=== PATIENT | female | born 1940 | race Caucasian/White ===

== ENCOUNTER → 2016-03-09 | Outpatient (CLI) | payer MEDICARE, BC ==
[2015-12-18 10:58] VITALS: BP 117/49
[~2016-03-09] MED LIST: ACET325T9 PO; AZEL137S3 NS; BACL10TA PO; CALC600T4 PO; CHOL20003 PO; CLOP75TA PO; CYCL10TA2 PO; FLEC100T PO; FLUT16SP2 NS; GLUC1CAP48 PO; HYDR-2666 PO; LACT1CAP8 PO; LEVO75TA PO; LIDO700A4 TP; LORA0.5T PO; LORA10TA3 PO; METO-269 PO; METO25TA9 PO; NAPR220C4 PO; OMEP10CA PO; POLY17PO5 PO; RANI150C PO; SENN8.6C2 PO; [UNRECOGNIZED DRUG - CODE] PO
--- NOTE | 2016-03-10 07:57 | PAIN ---
DATE OF SERVICE: 03/09/2016 DIAGNOSES: 1. Cervical radiculopathy with cervical spondylosis and cervical degenerative disk disease. 2. Lumbar radiculopathy with low back pain. 3. Myofascial pain. 4. Left trochanteric bursitis. HISTORY OF PRESENT ILLNESS: The patient is a 75-year-old female who returns for followup, last seen 01/05/2016. The patient has had some significant pain in the base of the neck and left shoulder. We sent her for some physical therapy with traction. She has done this now and reports about 90% improvement in this area, and her left shoulder and neck are doing much better, much easier ability to move her neck, shoulder, arm, and is very pleased with the progress. Her chief complaint today is her low back pain radiating to posterior left hip, posterior lateral thigh, lateral anterior thigh, medial lower leg and lateral lower leg on the left side only into the foot; also in the lateral aspect of the left foot. It is becoming more noticeable with walking and standing. The patient reports it is a 6 on a scale of 10. Reports no motor or sensory deficits, but significant pain in the low back and left lower extremity. The patient has been taking Plavix as well and we will check with her plane captain as to holding this in the future. The patient reports otherwise no new motor or sensory deficits, no new bowel or bladder incontinence or other complaints. PHYSICAL EXAMINATION: VITAL SIGNS: The patient's blood pressure is 129/70, pulse 63, respirations 18, temperature 98.3 degrees Fahrenheit, weight is 188 pounds. GENERAL: The patient is awake, alert, oriented, appropriate, very pleasant demeanor. The patient is accompanied by her . HEENT: Head shows normocephalic, atraumatic. Extraocular movements are intact and symmetrical. Oral cavity shows mucous membranes moist and pink. Dentition is intact. NECK: Shows anterior throat supple without palpable lymphadenopathy noted. Swallow reflex is symmetrical. CHEST: Shows normal on inspection. Breath sounds are clear to auscultation bilaterally. HEART: Shows S1 and S2 clear. ABDOMEN: Obese, soft, nontender, nondistended. No palpable organomegaly is noted. No rebound or guarding demonstrated. BACK: Shows spine grossly midline. There is some slight increase in thoracic kyphosis and some slight decrease in lumbar lordotic curvature. Lumbar paraspinous musculature shows some moderate tenderness with palpation, more on the left than the right in the low lumbar distribution of the paraspinous muscles, but only diffusely and only to a moderate extent. No atrophy or hypertrophy is noted. No trigger points. No radiation of pain demonstrated. No tenderness over the sacrum or sacroiliac regions. The patient shows good rotational motion of the lumbar spine, both laterally as well as extension and flexion, without significant difficulty or pain reported. EXTREMITIES: The patient's lower extremities show deep tendon reflexes 1+ in the patellar and tendo-calcaneus tendons. Motor exam is strong with dorsiflexion and extension. Quadriceps and hamstring flexion is approximately 4 on a scale of 5 on the left and 5/5 on the right. Peripheral pulses are 1+ posterior tibial and dorsalis pedis pulses. No peripheral edema is noted. No clubbing, no cyanosis. Lower extremities are warm and dry to touch, equal in color and appearance. The patient does have a slight positive straight-leg raise on the left side about 30 to 35 degrees, but also some hip pain involved, but no difference with knee flexion. Right side shows only some hip pain, but without radiation into the lower extremity as she had on the left, mostly in the lateral thigh. PLAN: Options were discussed with the patient. The patient's old chart was reviewed as well as her current medication regimen updated. Current review of systems was updated today as well. We will try Medrol Dosepak with instructions and side effects to be aware of discussed with the medication. Also, we will check with her plane captain to see if it is safe and acceptable to hold her Plavix prior to a potential interventional technique in the low back such as lumbar epidural steroid injection. We discussed this with the patient and her . With her radicular symptoms into the foot, this may be beneficial for the patient. We will check with plane captain regarding the Plavix as noted. The patient was given ____ the Medrol Dosepak. She will continue with strengthening and stretching exercises and physical therapy conditioning exercises for her upper neck and shoulders as she has been doing. The patient will return to the clinic in approximately 4 weeks or as necessary. JERRELL JAY MD DR: KRISTA/sunday JOB#: [id number] / [id number]
== END | disposition home or self-care (01) ==
LOC: PNCL 11:23
PROVIDERS: ATTEND Anesthesiology
DX: M50.10 Cervical disc disorder with radiculopathy, unspecified cervical region (principal); M47.892 Other spondylosis, cervical region; M54.16 Radiculopathy, lumbar region; M79.1 Myalgia; M70.62 Trochanteric bursitis, left hip
CPT/HCPCS: G0463

== ENCOUNTER → 2016-03-18 | Outpatient (CLI) | payer MEDICARE, BC ==
[2015-12-18 10:58] VITALS: BP 117/49
[~2016-03-18] MED LIST changes: +IOHEXOL 180 MG/ML 10 ML VIAL. ONE; +methylPREDNISolone ACETATE 40 MG/ML VIAL. ONE; +methylPREDNISolone ACETATE 80 MG/ML VIAL. ONE
--- NOTE | 2016-03-18 21:26 | PAIN ---
DATE OF SERVICE: 03/18/2016 DIAGNOSES: 1. Cervical radiculopathy with cervical degenerative disk disease and cervical spondylosis. 2. Lumbar radiculopathy with low back pain. 3. Left trochanteric bursitis. HISTORY OF PRESENT ILLNESS: The patient is a 75-year-old female who returns for followup status post both trigger point injections and cervical epidural steroid injections. We talked about lumbar epidural steroid injections. There is significant radiculopathy in the left leg at the L4-L5 level, dermatomal and has had significant burning and aching pain. She has been cleared now to be off her Plavix with her dairy helper, has been off it now for 7 days. Returns for injection today. The patient reports pain is a 7 on a scale of 10, it is burning, aching in the low back, left lower extremity, posterior gluteus, posterolateral thigh, lateral anterior thigh, medial lower leg into the foot and into the great toe on the left side. The patient reports no new motor or sensory deficits, no new bowel or bladder incontinence or other complaints. PHYSICAL EXAMINATION: VITAL SIGNS: Today, the patient's blood pressure is 119/59, pulse 65, respirations 18, temperature 98.1 degrees Fahrenheit. Height is 5 feet 4 inches, weighs 187 pounds. GENERAL: The patient is awake, alert, oriented, appropriate, very pleasant demeanor. HEENT: Head shows normocephalic, atraumatic. Extraocular movements are intact and symmetrical. Oral cavity shows mucous membranes moist and pink. Dentition is intact. NECK: Shows anterior throat supple without palpable lymphadenopathy noted. Swallow reflex is symmetrical. Neck shows good rotation and motion with some minor tenderness with extension, but not with forward flexion. CHEST: Shows normal on inspection with breath sounds clear to auscultation bilaterally. HEART: Shows S1 and S2 clear. ABDOMEN: Obese, soft, nontender, nondistended. No palpable organomegaly is noted. No rebound or guarding demonstrated. BACK: Shows spine grossly midline. The patient's lumbar paraspinous musculature shows some moderate tenderness with palpation throughout the middle and lower distribution of paraspinous muscles, but only diffusely without radiation. No asymmetry on inspection. No atrophy, hypertrophy. No tenderness over the sacrum and sacroiliac regions. The patient shows good rotation and motion of the lumbar spine, both laterally as well as extension and full forward flexion. EXTREMITIES: Lower extremities show deep tendon reflexes at 1+ in the patellar and tendo calcaneus tendons are equal. Motor exam is approximately 4 on a scale of 5 with dorsiflexion and extension as well as quadriceps and hamstring flexion, but are symmetrical. Peripheral pulses are 1+ posterior tibial and dorsalis pedis pulses. PLAN: Options were discussed with the patient. We will proceed with a lumbar epidural steroid injection today. The patient's old chart was reviewed as her current medication regimen and updated. Current review of systems updated today as well. Risks were discussed including but not limited to bleeding, infection, possibility of epidural hematoma and subsequent neurologic compromise, dural puncture, headaches, spinal cord and/or nerve damage, side effects of steroid medication and poor results regarding pain control. The patient understands and wishes to proceed. The patient will return to clinic in approximately 2 weeks for followup, was counseled on return appointment, activity level and side effects to be aware of. DIAGNOSIS: Lumbar radiculopathy with lumbar degenerative disk disease and low back pain. PROCEDURE: Lumbar epidural steroid injection, translaminar approach at the L4-L5 level using C-arm fluoroscopic guidance under sterile prep and drape using local anesthetic. MEDICATIONS INJECTED: Depo-Medrol 120 mg plus 2 mL of preservative-free normal saline and 2 mL of Isovue contrast. CONDITION AT DISCHARGE: Stable. The patient tolerated the procedure well, had no complications. The patient will start her Plavix again tomorrow, was counseled as to activity levels as well as side effects to be aware of. JERRELL JAY MD DR: KRISTA/sunday JOB#: [id number] / [id number]
== END ==
LOC: PNCL 09:48
PROVIDERS: ATTEND Anesthesiology
DX: M51.16 Intervertebral disc disorders with radiculopathy, lumbar region (principal); M50.10 Cervical disc disorder with radiculopathy, unspecified cervical region; M47.22 Other spondylosis with radiculopathy, cervical region; M70.62 Trochanteric bursitis, left hip; E03.9 Hypothyroidism, unspecified; F41.9 Anxiety disorder, unspecified; K21.9 Gastro-esophageal reflux disease without esophagitis
CPT/HCPCS: 62323; J1030; J1040

== ENCOUNTER 2016-06-04 14:35 | Observation (INO) | payer MEDICARE, BC ==
[~2016-06-04] VITALS: Ht 162.6 cm; Wt 86.6 kg
[~2016-06-04 14:35] MED LIST changes: -IOHEXOL 180 MG/ML 10 ML VIAL. ONE; -methylPREDNISolone ACETATE 40 MG/ML VIAL. ONE; -methylPREDNISolone ACETATE 80 MG/ML VIAL. ONE
--- NOTE | 2016-06-04 15:22 | ED.ADGEN ---
Past Medical History Past Medical History: A-Fib, Cancer, Hypothyroid Additional Past Medical Histor: breast cancer '09,lymphadema,sinus infection Past Surgical History: Cancer Surgery, Tonsillectomy Additional Past Surgical Histo: left mastectomy, Alcohol Use: None Drug Use: None Adult General Chief Complaint Chief Complaint: ABDOMINAL PAIN HPI HPI Patient is a 75 year old woman, history of hypothyroidism, breast cancer status post resection, 2008 in remission, constipation, who presents emergency Department with complaint of abdominal pain and constipation for the past 2 weeks. Patient states she seemed her primary care provider on Tuesday, at that time and x-rays performed that showed constipation, the patient was started on MiraLAX. She's taken 3 days of MiraLAX she states that she has passed "brown liquid", since that time, 2 episodes. States she is experiencing 7/10 cramping abdominal pain, in the upper quadrants and periumbilical region greater than in the lower quadrants, denies any nausea or vomiting, states that she cannot eat due to the pain. States she was able to have some chicken soup earlier today. Denies any fevers or chills, injuries, any weakness numbness or tingling, denies taking any medications that may contribute her constipation. No urinary complaints. No swelling of the extremities extremities, no chest pain or shortness of breath. She states she has been compliant with all of her medications. Her primary care provider is Dr. Jeison Veras. She is not previously had a colonoscopy. Review of Systems Review of Systems Constitutional: Denies fever or chills. [] Eyes: Denies change in visual acuity. [] HENT: Denies nasal congestion or sore throat. [] Respiratory: Denies cough or shortness of breath. [] Cardiovascular: Denies chest pain or edema. [] GI: Crampy abdominal pain, constipation, no nausea, no vomiting, no diarrhea. : Denies dysuria. [] Musculoskeletal: Denies back pain or joint pain. [] Integument: Denies rash. [] Neurologic: Denies headache, focal weakness or sensory changes. [] Endocrine: Denies polyuria or polydipsia. [] Lymphatic: Denies swollen glands. [] Psychiatric: Denies depression or anxiety. [] Current Medications Current Medications Current Medications Medications (Trade) Dose Ordered Sig/Brock Start Time Stop Time Status Last Admin Dose Admin Fentanyl Citrate (Fentanyl 2ml Vial) 25 mcg PRN Q15MIN PRN 06/04/16 15:30 06/05/16 15:29 Ondansetron HCl 4 mg 4 mg 1X ONCE 06/04/16 15:30 06/04/16 15:31 DC 06/04/16 16:04 4 MG Sodium Chloride (Iv Sodium Chloride 0.9% 500ml Bag) 500 ml @ 500 mls/hr 1X ONCE 06/04/16 15:30 06/04/16 16:29 DC 06/04/16 16:04 500 MLS/HR Allergies Allergies Allergies Coded Allergies Type Severity Reaction Last Updated Verified azithromycin Allergy Severe Anaphylaxis 01/10/15 No diphenhydramine Allergy Severe Anaphylaxis 01/10/15 Yes erythromycin base Allergy Severe Anaphylaxis 09/04/13 Yes iodine Allergy Severe 10/15/13 Yes sodium phosphate Allergy Severe Anaphylaxis 01/10/15 Yes vancomycin Allergy Severe Anaphylaxis 09/04/13 Yes Penicillins Allergy Intermediate Swelling 01/10/15 Yes Sulfa (Sulfonamide Antibiotics) Allergy Intermediate oral sores 10/15/13 No alendronate sodium Allergy Intermediate vision changes 01/10/15 Yes anastrozole Allergy Intermediate Unknown 01/10/15 Yes cefdinir Allergy Intermediate Diarrhea 01/10/15 Yes clarithromycin Allergy Intermediate Unknown 01/10/15 Yes doxepin Allergy Intermediate dizzyness 01/10/15 Yes ibuprofen Allergy Intermediate sores 01/10/15 Yes levofloxacin Allergy Intermediate Unknown 01/10/15 Yes moxifloxacin Allergy Intermediate Unknown 01/10/15 Yes naproxen Allergy Intermediate sores 12/18/15 Yes strawberry Allergy Intermediate Unknown 01/10/15 Yes tizanidine Allergy Intermediate heart palpitaions 01/10/15 Yes tramadol Allergy Intermediate oral rash 10/15/13 No venom-wasp Allergy Intermediate Unknown 01/10/15 Yes amoxicillin Allergy Mild sores 01/10/15 Yes cyclobenzaprine Adverse Reaction Severe felt bed moving, felt like someone was in bed 03/12/14 No morphine Adverse Reaction Intermediate vomiting 03/12/14 No aspirin Adverse Reaction Mild hurts stomach 03/12/14 No Physical Exam Physical Exam Constitutional: Well developed, well nourished, no acute distress, non-toxic appearance. [] HENT: Normocephalic, atraumatic, bilateral external ears normal, oropharynx moist, no oral exudates, nose normal. [] Eyes: PERRLA, EOMI, conjunctiva normal, no discharge. [] Neck: Normal range of motion, no tenderness, supple, no stridor. [] Cardiovascular:Heart rate regular rhythm, no murmur , S1, S2, no rubs or gallops. [] Lungs & Thorax: Bilateral breath sounds clear to auscultation, no wheezing, rhonchi, rales. No chest or crepitus or tenderness. [] Abdomen: Hypoactive bowel sounds, soft, obese, mildly distended, tenderness to palpation throughout the abdomen, most specific in the periumbilical region and epigastric region, no masses, no pulsatile masses. [] Skin: Warm, dry, no erythema, no rash. [] Back: No tenderness, no CVA tenderness. [] Extremities: No tenderness, no cyanosis, no clubbing, ROM intact, no edema. [] Neurologic: Alert and oriented X 3, normal motor function, normal sensory function, no focal deficits noted. [] Psychologic: Affect normal, judgement normal, mood normal. [] Current Patient Data Vital Signs Vital Signs Date Time Temp Pulse Resp B/P Pulse Ox O2 Delivery O2 Flow Rate FiO2 06/04/16 17:45 72 18 140/65 95 Room Air 06/04/16 15:33 98.1 98.1 Lab Values Laboratory Tests Test 06/04/16 15:38 06/04/16 15:40 06/04/16 16:15 Urine Collection Type Unknown Urine Color Straw Urine Clarity Clear Urine pH 7.0 Urine Specific Mccoll <=1.005 Urine Protein Negativemg/dL (NEG-TRACE) Urine Glucose (UA) Negativemg/dL (NEG) Urine Ketones (Stick) Negativemg/dL (NEG) Urine Blood Negative (NEG) Urine Nitrite Negative (NEG) Urine Bilirubin Negative (NEG) Urine Urobilinogen Dipstick 0.2mg/dL (0.2 mg/dL) Urine Leukocyte Esterase Negative (NEG) Urine RBC 0/HPF (0-2) Urine WBC 0/HPF (0-4) Urine Squamous Epithelial Cells Occ/LPF Urine Bacteria 0/HPF (0-FEW) White Blood Count 5.2x10^3/uL (4.0-11.0) Red Blood Count 4.31x10^6/uL (3.50-5.40) Hemoglobin 13.0g/dL (12.0-15.5) Hematocrit 39.1% (36.0-47.0) Mean Corpuscular Volume 91fL (79-100) Mean Corpuscular Hemoglobin 30pg (25-35) Mean Corpuscular Hemoglobin Concent 33g/dL (31-37) Red Cell Distribution Width 14.4% (11.5-14.5) Platelet Count 188x10^3/uL (140-400) Neutrophils (%) (Auto) 61% (31-73) Lymphocytes (%) (Auto) 27% (24-48) Monocytes (%) (Auto) 9% (0-9) Eosinophils (%) (Auto) 2% (0-3) Basophils (%) (Auto) 1% (0-3) Neutrophils # (Auto) 3.1x10^3uL (1.8-7.7) Lymphocytes # (Auto) 1.4x10^3/uL (1.0-4.8) Monocytes # (Auto) 0.5x10^3/uL (0.0-1.1) Eosinophils # (Auto) 0.1x10^3/uL (0.0-0.7) Basophils # (Auto) 0.1x10^3/uL (0.0-0.2) Sodium Level 141mmol/L (136-145) Potassium Level 3.7mmol/L (3.5-5.1) Chloride Level 101mmol/L (98-107) Carbon Dioxide Level 27mmol/L (21-32) Anion Gap 13 (6-14) Blood Urea Nitrogen 8mg/dL (7-20) Creatinine 0.9mg/dL (0.6-1.0) Estimated GFR (Cockcroft-Gault) 60.9 BUN/Creatinine Ratio 9 (6-20) Glucose Level 102mg/dL (70-99) H Lactic Acid Level 1.6mmol/L (0.4-2.0) Calcium Level 9.4mg/dL (8.5-10.1) Total Bilirubin 0.7mg/dL (0.2-1.0) Aspartate Amino Transferase (AST) 18U/L (15-37) Alanine Aminotransferase (ALT) 25U/L (14-59) Alkaline Phosphatase 85U/L (46-116) Total Protein 7.6g/dL (6.4-8.2) Albumin 4.1g/dL (3.4-5.0) Albumin/Globulin Ratio 1.2 (1.0-1.7) Lipase 116U/L (73-393) Thyroid Stimulating Hormone (TSH) 3.897uIU/mL (0.358-3.74) H Laboratory Tests 06/04/16 15:40 Laboratory Tests 06/04/16 16:15 EKG EKG EC: Sinus rhythm, heart rate 69 bpm, left axis deviation, QTC of 449, GA of 240, QRS of 86, no ST elevations or depressions, GA slightly prolonged, aside from these findings with her concerning findings identified. Abdomen normal ECG, does not meet STEMI criteria. As interpreted by me. [] Radiology/Procedures Radiology/Procedures [] [facility] [address] [place] [address] IMAGING REPORT Signed PATIENT: ULI MILLER ACCOUNT: [id number] : 1940 LOCATION: ER AGE: 75 SEX: F EXAM STATUS: REG ER ORD. PHYSICIAN: SHYLA PARIKH DO REASON: abd pain/constipation, PT ALLERGY TO IODINE PROCEDURE: CT ABD PEL W/ORAL CONTRST ONLY PROCEDURE CT abdomen pelvis without contrast. HISTORY Generalized abdominal pain, nausea and vomiting. TECHNIQUE Helical CT imaging of the abdomen and pelvis is performed after oral contrast. IV contrast not given due to reported iodine allergy. PQRS: One or more the following individualized dose reduction techniques were utilized for the study: 1. Automated exposure control. 2. Adjustment of the mA and/or kV according to patient size. 3. Use of iterative reconstruction technique. COMPARISON CT abdomen and pelvis without contrast November 18, 2013. FINDINGS Lung bases clear. Cardiac size normal. Gallbladder is contracted. Liver, spleen, pancreas, adrenal glands, and abdominal aorta are normal. No hydronephrosis. Stomach unremarkable. No dilated small bowel. The appendix is normal. No colon wall thickening. No abdominal adenopathy or free fluid. Uterus and ovaries unremarkable. Urinary bladder is normal. No pelvic free fluid. Moderate left convexity thoracolumbar scoliosis. Grade 1 anterolisthesis of L4 on L5. IMPRESSION No acute abdominal or pelvic abnormality. Electronically signed by: Alfredo Claudio MD (Jun 04, 2016 17:24:31) DICTATED and SIGNED BY: ALFREDO CLAUDIO MD DATE: 06/04/16 1724 CC: SHYLA PARIKH DO; JEISON VERAS Jr, MD ~ Course & Med Decision Making Course & Med Decision Making Pertinent Labs and Imaging studies reviewed. (See chart for details) Patient patient's history and reports, CT of abdomen and pelvis along with laboratory studies obtained. Patient's laboratory studies do not any evidence of acutely concerning findings. Patient's CT of the pelvis does not reveal any obstruction or obstipation, some continued constipation noted. I did discuss findings with patient, she states she is continuing to experience cramping and pressure and abdomen, and is still feeling ill, and as though she is unable to eat due to her discomfort,. After a lengthy discussion at bedside, patient is agreeable for admission to the hospital for observation, will continue MiraLAX at this time, she did miss her dose today, IV fluids, and advance diet as tolerated. Findings as above discussed with Dr. Moody of internal medicine, patient accepted to her service as an observation admission medical surgical bed , for IV fluids, 2 advance diet as tolerated, and observation. Bridge orders entered per discussion. Fiona Disclaimer Fiona Disclaimer This electronic medical record was generated, in whole or in part, using a voice recognition dictation system. Departure Impression: Primary Impression: Abdominal pain Additional Impression: Constipation Disposition: ADMITTED INPATIENT Admitting Physician: Other Condition: IMPROVED Problem Qualifiers SHYLA PARIKH DO Jun 04, 2016 15:22
[2016-06-04] MEDS ORDERED: FENTANYL PF 100 MCG/2 ML VIAL. IV PRN (15:30)
[2016-06-04] MEDS ORDERED: IV NORMAL SALINE 500ML BAG 500 ML IV ONE (15:30)
[2016-06-04] MEDS ORDERED: ONDANSETRON PF 4 MG/2 ML VIAL. IV ONE (15:30)
[2016-06-04 15:49] LABS: BASO # 0.1 x10^3/uL (0.0-0.2); BASO % 1 % (0-3); EOS % 2 % (0-3); HEMATOCRIT 39.1 % (36.0-47.0); LYMPH # 1.4 x10^3/uL (1.0-4.8); LYMPH % 27 % (24-48); MEAN CORPUSCULAR HEMOGLOBIN 30 pg (25-35); MEAN CORPUSCULAR HGB CONC 33 g/dL (31-37); MEAN CORPUSCULAR VOLUME 91 fL (79-100); MONO % 9 % (0-9); NEUT % 61 % (31-73); PLATELET COUNT 188 x10^3/uL (140-400); RED BLOOD COUNT 4.31 x10^6/uL (3.50-5.40); RED CELL DISTRIBUTION WIDTH 14.4 % (11.5-14.5); WHITE BLOOD COUNT 5.2 x10^3/uL (4.0-11.0)
[2016-06-04 15:53] LABS: BILIRUBIN,URINE NEGATIVE (NEG); GLUCOSE,URINE NEGATIVE (NEG); NITRITE,URINE NEGATIVE (NEG); PROTEIN,URINE NEGATIVE (NEG-TRACE); UROBILINOGEN,URINE 0.2 mg/dL (0.2 mg/dL)
[2016-06-04 16:03] LABS: RBC,URINE 0 /HPF (0-2)
[2016-06-04 16:04] LABS: BACTERIA,URINE 0 /HPF (0-FEW); SQUAMOUS EPITHELIAL CELL,UR OCC /LPF; WBC,URINE 0 /HPF (0-4)
[2016-06-04 16:44] LABS: CALCIUM 9.4 mg/dL (8.5-10.1); CREATININE 0.9 mg/dL (0.6-1.0); GFR 60.9; POTASSIUM 3.7 mmol/L (3.5-5.1)
[2016-06-04 16:50] LABS: ALBUMIN 4.1 g/dL (3.4-5.0); ALBUMIN/GLOBULIN RATIO 1.2 (1.0-1.7); TOTAL BILIRUBIN 0.7 mg/dL (0.2-1.0); TOTAL PROTEIN 7.6 g/dL (6.4-8.2)
--- NOTE | 2016-06-04 17:04 | EKG ---
[facility] [address] [place] [address] Test Date: 2016-06-04 Test Time: 15:55:12 Pat Name: ULI MILLER Department: Room: Gender: F Customer Sales Advisor: : 1940 Requested By: SHYLA PARIKH Order Number: [id number] Reading MD: Measurements Intervals [place] Rate: 69 P: 56 [place]: 248 QRS: -16 QRSD: 86 T: 22 QT: 418 QTc: 449 Interpretive Statements SINUS RHYTHM PROLONGED [place] INTERVAL LEFTWARD AXIS NON SPECIFIC T ABNORMALITY RI6.01 Unconfirmed report No previous ECG available for comparison
--- NOTE | 2016-06-04 17:25 | RAD ---
PROCEDURE CT abdomen pelvis without contrast. HISTORY Generalized abdominal pain, nausea and vomiting. TECHNIQUE Helical CT imaging of the abdomen and pelvis is performed after oral contrast. IV contrast not given due to reported iodine allergy. PQRS: One or more the following individualized dose reduction techniques were utilized for the study: 1. Automated exposure control. 2. Adjustment of the mA and/or kV according to patient size. 3. Use of iterative reconstruction technique. COMPARISON CT abdomen and pelvis without contrast November 18, 2013. FINDINGS Lung bases clear. Cardiac size normal. Gallbladder is contracted. Liver, spleen, pancreas, adrenal glands, and abdominal aorta are normal. No hydronephrosis. Stomach unremarkable. No dilated small bowel. The appendix is normal. No colon wall thickening. No abdominal adenopathy or free fluid. Uterus and ovaries unremarkable. Urinary bladder is normal. No pelvic free fluid. Moderate left convexity thoracolumbar scoliosis. Grade 1 anterolisthesis of L4 on L5. IMPRESSION No acute abdominal or pelvic abnormality. Electronically signed by: Alfredo Claudio MD (Jun 04, 2016 17:24:31)
[2016-06-04] MEDS ORDERED: ACETAMINOPHEN 325 MG TABLET. PO PRN ×2 (18:00→20:15)
[2016-06-04] MEDS ORDERED: DICYCLOMINE HCL 10 MG CAPSULE PO ONE (18:00)
[2016-06-04] MEDS ORDERED: ONDANSETRON PF 4 MG/2 ML VIAL. IV PRN (18:00)
[2016-06-04] MEDS ORDERED: POLYETHYLENE GLYCOL 3350 17 GM PACKET. PO ONE (18:15)
[2016-06-04] MEDS ORDERED: IV NORMAL SALINE 1000ML BAG 1,000 ML IV ONE (18:15)
[2016-06-04] MEDS: IV NORMAL SALINE 1000ML BAG 1,000 ML IV SCH (18:30)
[2016-06-04] MEDS ORDERED: SIMETHICONE 80 MG TAB.CHEW PO PRN (20:15)
[2016-06-04 20:17] VITALS: BP 142/75
[2016-06-04] MEDS ORDERED: CETIRIZINE HCL 10 MG TABLET. PO SCH (20:30)
[2016-06-04] MEDS ORDERED: FAMOTIDINE 20 MG TABLET. PO PRN (21:00)
[2016-06-04] MEDS ORDERED: LORAZEPAM 0.5 MG TABLET. PO SCH (21:00)
[2016-06-04] MEDS ORDERED: FLEC50TA PO (21:59)
[2016-06-04] MEDS ORDERED: LORA1TAB PO (21:59)
[2016-06-04] MEDS ORDERED: METO25TA9 PO (21:59)
[2016-06-04] MEDS: METOCLOPRAMIDE 10 MG TABLET. PO SCH (21:59)
[2016-06-04] MEDS: POLYETHYLENE GLYCOL 3350 17 GM PACKET. PO SCH (22:01)
[2016-06-04 22:30] VITALS: BP 130/66
--- NOTE | 2016-06-05 00:12 | HP ---
ADMIT DATE: 06/04/2016 CHIEF COMPLAINT: Constipation/diarrhea. HISTORY OF PRESENT ILLNESS: The patient is a 75-year-old woman who presented to the Emergency Room after having constipation for several days now. She relates that this has been an issue ongoing for many, many weeks, but appears here more recently. Symptoms have gotten worse. She relates that she actually went to her primary care physician on Tuesday and was advised to start MiraLax x 4 with plenty of Gatorade. She tried this on Tuesday as well as on , both times with very little results, fluid only. She therefore was advised to come to the Emergency Room for further workup and evaluation. In the Emergency Room, she underwent a CAT scan, which did not show any type of obstruction or ileus. The patient was therefore admitted for observation and further monitoring. PAST MEDICAL HISTORY: Atrial fibrillation on flecainide, no oral anticoagulation. Denies any heart history, positive for hypertension, obstructive sleep apnea on CPAP. FAMILY HISTORY: Positive for CAD. SOCIAL HISTORY: She is , living with her who smoked only briefly in her youth. ALLERGIES: Multiple as listed. MEDICATIONS: MAR reconciled with home medications. REVIEW OF SYSTEMS: Significant abdominal pain and distension. She has been decreasing her p.o. intake and has been living on chicken soup for quite a while. Denies any chest pain, shortness of breath, had some watery diarrhea since receiving MiraLax in the Emergency Room a couple of hours earlier. Rest of organ system review was essentially negative. PHYSICAL EXAMINATION: VITAL SIGNS: From today show a blood pressure of 113/63, heart rate of 100, respiratory rate at 20. She is afebrile, of note, pulse rate previously had been in the 70s. GENERAL: This is an obese 75-year-old woman, alert and oriented, no acute distress, pleasant. HEENT: Shows no scleral icterus. NECK: Supple. LUNGS: Clear to auscultation bilaterally. HEART: Slightly irregular rate and rhythm. ABDOMEN: Massively distended, firm, tenderness to palpation in the upper quadrants. No masses are palpable. EXTREMITIES: Show no edema, no clubbing, no cyanosis. SKIN: Warm, soft and dry without any rash. LABORATORY DATA: CBC with a WBC of 5.2, hemoglobin 13.0, platelets of 188. Chemistries with a BUN and creatinine of 8 and 0.9. Electrolytes within normal limits. LFTs normal. Albumin 4.1. Urine negative for any infectious symptoms. IMAGING: CT of the abdomen and pelvis reviewed by myself revealed no abnormal gas patterns in the bowel. Stomach, however, contains copious amounts of oral contrast and is significantly dilated. ASSESSMENT AND PLAN: There is a 75-year-old woman presenting with abdominal pain and distention unlike initially presumed, this was not due to constipation or obstruction of her lower GI tract, but more related to her stomach. We will start her on Reglan for now. Simethicone will be available p.r.n. Start clear liquids if she tolerates this, advanced to cardiac diet. A GI consult may be required if symptoms do not antolin. She more than likely will need either in or outpatient workup for this. I will continue all her home medications for the time being. Heart rate in itself is actually fairly well controlled. We will monitor her electrolytes with ongoing loose bowel movements and potential electrolyte losses, the only medication not available here is flecainide. Her will have to bring in her supply. TAMIA OLIVARES MD DR: SELENA/sunday JOB#: [id number] / [id number] [place]
[2016-06-05] MEDS ORDERED: LORAZEPAM 0.5 MG TABLET. PO ONE (00:30)
[2016-06-05 02:30] VITALS: BP 104/61
[2016-06-05] MEDS: IV NORMAL SALINE 1000ML BAG 1,000 ML IV SCH (05:30)
[2016-06-05 05:33] LABS: BASO % 1 % (0-3); EOS % 3 % (0-3); HEMATOCRIT 33.9 % (36.0-47.0); HEMOGLOBIN 11.5 g/dL (12.0-15.5); LYMPH # 1.5 x10^3/uL (1.0-4.8); LYMPH % 28 % (24-48); MEAN CORPUSCULAR HEMOGLOBIN 31 pg (25-35); MEAN CORPUSCULAR HGB CONC 34 g/dL (31-37); MEAN CORPUSCULAR VOLUME 92 fL (79-100); MONO % 12 % (0-9); NEUT % 57 % (31-73); PLATELET COUNT 149 x10^3/uL (140-400); RED BLOOD COUNT 3.67 x10^6/uL (3.50-5.40); WHITE BLOOD COUNT 5.3 x10^3/uL (4.0-11.0)
[2016-06-05 05:48] LABS: CALCIUM 7.7 mg/dL (8.5-10.1); CREATININE 0.7 mg/dL (0.6-1.0); GFR 81.4; POTASSIUM 3.5 mmol/L (3.5-5.1)
[2016-06-05 07:00] VITALS: BP 100/50
[2016-06-05] MEDS ORDERED: LEVOTHYROXINE 75 MCG TABLET PO SCH (07:30)
[2016-06-05] MEDS: POLYETHYLENE GLYCOL 3350 17 GM PACKET. PO SCH (08:19)
[2016-06-05] MEDS: METOCLOPRAMIDE 10 MG TABLET. PO SCH ×2 (08:24→12:01)
[2016-06-05] MEDS: LACTOBACILLUS ACIDOPH & BULGAR 1 TABLET. PO SCH ×2 (08:25→12:01)
[2016-06-05] MEDS ORDERED: METOPROLOL SUCC 24HR ER 25 MG TAB.ER.24H. PO SCH (09:00)
[2016-06-05] MEDS ORDERED: FLUTICASONE 50MCG/NASAL SPRAY 16GM BOTTLE. NS SCH (09:00)
[2016-06-05] MEDS ORDERED: LORAZEPAM 0.5 MG TABLET. PO PRN (09:00)
[2016-06-05] MEDS ORDERED: CLOPIDOGREL BISULFATE 75 MG TABLET PO SCH ×2 (09:00→17:00)
[2016-06-05] MEDS ORDERED: METOPROLOL SUCC 24HR ER 50 MG TAB.ER.24H. PO SCH (09:00)
[2016-06-05] MEDS ORDERED: CHOLECALCIFEROL (VITAMIN D3) 1,000 UNIT TABLET PO SCH (09:00)
[2016-06-05] MEDS ORDERED: AZELASTINE NASAL SPRAY 30ML BOTTLE. NS SCH (09:00)
--- NOTE | 2016-06-05 11:05 | ACF ---
Admit Criteria Forms Admit Criteria Forms Admit Criteria Forms ABDOMINAL PAIN Clinical Indications for Admission to Inpatient Care (Place 'X' for any and all applicable criteria): Admission is indicated for ANY ONE of the following(1)(2)(3)(4)(5): [X]I. Inpatient admission required rather than observation care (Also use Abdominal Pain: Observation Care, as appropriate) because of ANY ONE of the following: [ ]a) Severe pain requiring acute inpatient management [X]b) Identification of etiology/finding that requires inpatient care (eg, aortic dissection, free air) [ ]c) Absent bowel sounds with complete ileus(6) [ ]d) Suspected toxic megacolon [ ]e) Severe electrolyte abnormalities requiring inpatient care [ ]f) High fever or infection requiring inpatient admission as indicated by ANY ONE of following(7)(8): [ ] i) Appropriate outpatient or observational care antimicrobial treatment unavailable, not effective, or not feasible [ ] ii) Documented bacteremia [ ] iii) Temperature > 104.9 degrees F (oral) [ ] iv) T >103.1 F (oral) or < 96.8 F(rectal) that does not respond to all emergency treatment measures [ ]g) Signs of intestinal obstruction [B] [ ]h) Hemodynamic instability [ ]i) IV fluid to replace significant ongoing losses (greater than 3 L/m2 per day) (12)(13) [ ]j) Percutaneous or open drainage (eg, abscess, biliary tract ) procedures [ ]k) Parenteral nutrition regimen that must be implemented on inpatient basis [ ]l) Other condition,treatment or monitoring requiring inpatient admission. [ ]II. Peritoneal signs present [ ]III. Surgery needed that cannot be performed on an ambulatory basis. [ ]IV. Evaluation requires patient to not eat or drink for extended period ( eg, more than 24 hours). [ ]V. Contraindications and/or Inappropriate clinical situations for Observational Care in patients with abdominal pain, when ANY ONE of the following is required: [ ]a) Thorough evaluation is required to prevent catastrophic events due to delays in diagnosing (e.g.Mesenteric ischemia) 1,3 [ ]b) Patient with severe pathology or with chronic symptoms unlikely to improve in the ED stay (3) [ ]. General contraindications and/or Inappropriate clinical situations for Observational Care in patients with abdominal pain, when ANY ONE of the following is required: [ ]a) Prediction of prolongation of LOS based on ANY ONE of the following may be considered as a contraindication for observational care 2, 3, 4, 5, 6, 7, 8, 9, 10, 11 [ ]i) Age > 65 yrs. [ ]ii) Patient arriving by ambulance [ ]iii) Patient with high acuity [ ]iv) Patient requiring vital sign monitoring [ ]v) Patient on IV medication [ ]b) Systolic blood pressures 180mmHg 3,12 [ ]c) Patient with altered mental status including delirium and other alteration of consciousness, (3) [ ]d) Patient whose discharge disposition will be to a residential home or rehabilitation home should not be managed in Emergency Department Observation Unit. CMS rule requires 3 days hospital stay before such placement.3,13 [ ]e) Patient with failure to thrive due to broad array of etiologies 3,16,17 [ ]f) Inability to ambulate 3,14 Extended stay beyond goal length of stay may be needed for(2)(3): [ ]a) Persistent abdominal pain with suspected intra-abdominal process [ ]b) Diagnosed condition requiring continued stay (e.g., pancreatitis, complicated diverticulitis) [ ]c) Surgery (e.g., colectomy) The original [employer] content created by [employer] has been revised. The portions of the content which have been revised are identified through the use of italic text or in bold, and [employer] has neither reviewed nor approved the modified material.All other unmodified content is copyright [employer]. Please see references footnoted in the original [employer] edition 2016ABDOMINAL AORTIC ANEURYSM, ENDOVASCULAR REPAIR Clinical Indications for Procedure (Place 'X ' for any and all applicable criteria): Procedure is indicated if ALL (I,II &III) of the following are present(1)(2)(3)( 4)(5): [ ]I. Repair is needed as indicated by ANY ONE of the following(6) : [ ]a) Symptomatic aneurysm (eg, cause of back or abdominal pain, distal embolization) [ ]b) Ruptured, dissecting, or leaking aneurysm(11)(13) [ ]c) Infrarenal or juxtarenal aneurysm 5.0 cm in diameter or larger[A] [ ]d) Suprarenal aneurysm 5.5 cm in diameter or larger [ ]e) Infected (mycotic) aneurysm(15) [ ]f) Aneurysm that expands by more than 1.0 cm in diameter within 12 months (or by more than 0.5 cm over 6 months) [ ]II. Anatomy and location of abdominal aorta, aneurysm, and distal vessels are suitable for endovascular repair.(16)(17) [ ]III. Patient able to comply with indicated periodic long-term surveillance imaging Extended stay beyond goal length of stay may be needed for (24)(25): [ ]a) Complications of procedure (8)(40 [ ]b) Unstable comorbidities (24) [ ]c) Emergent repair (9) The original [employer] content created by [employer] has been revised. The portions of the content which have been revised are identified through the use of italic text or in bold, and [facility] has neither reviewed nor approved the modified material. All other unmodified content is copyright [employer]. Please see references footnoted in the original [employer] edition 2016 HIEN MONTGOMERY Jun 05, 2016 11:05
[2016-06-05 11:13] VITALS: BP 119/57
--- NOTE | 2016-06-05 13:21 | PDOC ---
PROGRESS NOTES Chief Complaint Chief Complaint cc: abdominal pain constipation Atrial fibrillation on flecainide, no oral anticoagulation. hypertension, obstructive sleep apnea on CPAP. History of Present Illness History of Present Illness Patient seen and evaluated at bedside. Patient resting comfortably, in no acute distress. She notes continued pain to the epigastrum, but improved. She is tolerating PO. She is eager for discharge. d/w nurse. Vitals Vitals Vital Signs Date Time Temp Pulse Resp B/P Pulse Ox O2 Delivery O2 Flow Rate FiO2 06/05/16 11:13 98.1 75 18 119/57 95 Room Air 98.1 Physical Exam General: Alert, Oriented X3, Cooperative, No acute distress Heart: Normal S1, Other (irregular rhythm ) Lungs: Clear, Other (negative chest rectractions or accessory muscle use. ) Abdomen: Soft, Other ((+) minimal tenderness to palpation to epigrastrum with mild distention. Negative peritoneal signs. ) Extremities: No clubbing, No cyanosis, No edema Skin: No rashes, No significant lesion Labs LABS Laboratory Tests Test 06/04/16 15:38 06/04/16 15:40 06/04/16 16:15 06/04/16 18:09 Urine Collection Type Unknown Urine Color Straw Urine Clarity Clear Urine pH 7.0 Urine Specific [place] <=1.005 Urine Protein Negativemg/dL (NEG-TRACE) Urine Glucose (UA) Negativemg/dL (NEG) Urine Ketones (Stick) Negativemg/dL (NEG) Urine Blood Negative (NEG) Urine Nitrite Negative (NEG) Urine Bilirubin Negative (NEG) Urine Urobilinogen Dipstick 0.2mg/dL (0.2 mg/dL) Urine Leukocyte Esterase Negative (NEG) Urine RBC 0/HPF (0-2) Urine WBC 0/HPF (0-4) Urine Squamous Epithelial Cells Occ/LPF Urine Bacteria 0/HPF (0-FEW) White Blood Count 5.2x10^3/uL (4.0-11.0) Red Blood Count 4.31x10^6/uL (3.50-5.40) Hemoglobin 13.0g/dL (12.0-15.5) Hematocrit 39.1% (36.0-47.0) Mean Corpuscular Volume 91fL (79-100) Mean Corpuscular Hemoglobin 30pg (25-35) Mean Corpuscular Hemoglobin Concent 33g/dL (31-37) Red Cell Distribution Width 14.4% (11.5-14.5) Platelet Count 188x10^3/uL (140-400) Neutrophils (%) (Auto) 61% (31-73) Lymphocytes (%) (Auto) 27% (24-48) Monocytes (%) (Auto) 9% (0-9) Eosinophils (%) (Auto) 2% (0-3) Basophils (%) (Auto) 1% (0-3) Neutrophils # (Auto) 3.1x10^3uL (1.8-7.7) Lymphocytes # (Auto) 1.4x10^3/uL (1.0-4.8) Monocytes # (Auto) 0.5x10^3/uL (0.0-1.1) Eosinophils # (Auto) 0.1x10^3/uL (0.0-0.7) Basophils # (Auto) 0.1x10^3/uL (0.0-0.2) Sodium Level 141mmol/L (136-145) Potassium Level 3.7mmol/L (3.5-5.1) Chloride Level 101mmol/L (98-107) Carbon Dioxide Level 27mmol/L (21-32) Anion Gap 13 (6-14) Blood Urea Nitrogen 8mg/dL (7-20) Creatinine 0.9mg/dL (0.6-1.0) Estimated GFR (Cockcroft-Gault) 60.9 BUN/Creatinine Ratio 9 (6-20) Glucose Level 102mg/dL (70-99) Lactic Acid Level 1.6mmol/L (0.4-2.0) Calcium Level 9.4mg/dL (8.5-10.1) Total Bilirubin 0.7mg/dL (0.2-1.0) Aspartate Amino Transf (AST/SGOT) 18U/L (15-37) Alanine Aminotransferase (ALT/SGPT) 25U/L (14-59) Alkaline Phosphatase 85U/L (46-116) Total Protein 7.6g/dL (6.4-8.2) Albumin 4.1g/dL (3.4-5.0) Albumin/Globulin Ratio 1.2 (1.0-1.7) Lipase 116U/L (73-393) Thyroid Stimulating Hormone (TSH) 3.897uIU/mL (0.358-3.74) Bedside Troponin I 0.00ng/ml (<0.08) Test 06/05/16 04:50 White Blood Count 5.3x10^3/uL (4.0-11.0) Red Blood Count 3.67x10^6/uL (3.50-5.40) Hemoglobin 11.5g/dL (12.0-15.5) Hematocrit 33.9% (36.0-47.0) Mean Corpuscular Volume 92fL (79-100) Mean Corpuscular Hemoglobin 31pg (25-35) Mean Corpuscular Hemoglobin Concent 34g/dL (31-37) Red Cell Distribution Width 14.0% (11.5-14.5) Platelet Count 149x10^3/uL (140-400) Neutrophils (%) (Auto) 57% (31-73) Lymphocytes (%) (Auto) 28% (24-48) Monocytes (%) (Auto) 12% (0-9) Eosinophils (%) (Auto) 3% (0-3) Basophils (%) (Auto) 1% (0-3) Neutrophils # (Auto) 3.0x10^3uL (1.8-7.7) Lymphocytes # (Auto) 1.5x10^3/uL (1.0-4.8) Monocytes # (Auto) 0.6x10^3/uL (0.0-1.1) Eosinophils # (Auto) 0.1x10^3/uL (0.0-0.7) Basophils # (Auto) 0.0x10^3/uL (0.0-0.2) Sodium Level 145mmol/L (136-145) Potassium Level 3.5mmol/L (3.5-5.1) Chloride Level 109mmol/L (98-107) Carbon Dioxide Level 25mmol/L (21-32) Anion Gap 11 (6-14) Blood Urea Nitrogen 4mg/dL (7-20) Creatinine 0.7mg/dL (0.6-1.0) Estimated GFR (Cockcroft-Gault) 81.4 Glucose Level 87mg/dL (70-99) Calcium Level 7.7mg/dL (8.5-10.1) Review of Systems Review of Systems (+) abdominal pain (+) abdominal distension Denies chest pain, sob, n/v/d, dysuria, or fever/chills. Assessment and Plan Assessmemt and Plan Problems Medical Problems: (1) Abdominal pain Status: Acute (2) Constipation Status: Acute Assessment: 1.) abdominal pain, most likely 2/2 to constipation 2.) Atrial fibrillation on flecainide, no oral anticoagulation. 3.) hypertension, 4.) obstructive sleep apnea on CPAP. Plan: 1.) continue home medications as appropriate 2.) discharge to home with rx of reglan. 3.) f/u with pcp and/or GI specialist in 1-2 weeks for further evaluation and work-up 4.) recommended high fiber diet regimen 5.) activity as tolerated. Problems: Comment Review of Relevant I have reviewed the following items anselmo (where applicable) has been applied. Labs Laboratory Tests Test 06/04/16 15:38 06/04/16 15:40 06/04/16 16:15 06/04/16 18:09 Urine Collection Type Unknown Urine Color Straw Urine Clarity Clear Urine pH 7.0 Urine Specific [place] <=1.005 Urine Protein Negativemg/dL (NEG-TRACE) Urine Glucose (UA) Negativemg/dL (NEG) Urine Ketones (Stick) Negativemg/dL (NEG) Urine Blood Negative (NEG) Urine Nitrite Negative (NEG) Urine Bilirubin Negative (NEG) Urine Urobilinogen Dipstick 0.2mg/dL (0.2 mg/dL) Urine Leukocyte Esterase Negative (NEG) Urine RBC 0/HPF (0-2) Urine WBC 0/HPF (0-4) Urine Squamous Epithelial Cells Occ/LPF Urine Bacteria 0/HPF (0-FEW) White Blood Count 5.2x10^3/uL (4.0-11.0) Red Blood Count 4.31x10^6/uL (3.50-5.40) Hemoglobin 13.0g/dL (12.0-15.5) Hematocrit 39.1% (36.0-47.0) Mean Corpuscular Volume 91fL (79-100) Mean Corpuscular Hemoglobin 30pg (25-35) Mean Corpuscular Hemoglobin Concent 33g/dL (31-37) Red Cell Distribution Width 14.4% (11.5-14.5) Platelet Count 188x10^3/uL (140-400) Neutrophils (%) (Auto) 61% (31-73) Lymphocytes (%) (Auto) 27% (24-48) Monocytes (%) (Auto) 9% (0-9) Eosinophils (%) (Auto) 2% (0-3) Basophils (%) (Auto) 1% (0-3) Neutrophils # (Auto) 3.1x10^3uL (1.8-7.7) Lymphocytes # (Auto) 1.4x10^3/uL (1.0-4.8) Monocytes # (Auto) 0.5x10^3/uL (0.0-1.1) Eosinophils # (Auto) 0.1x10^3/uL (0.0-0.7) Basophils # (Auto) 0.1x10^3/uL (0.0-0.2) Sodium Level 141mmol/L (136-145) Potassium Level 3.7mmol/L (3.5-5.1) Chloride Level 101mmol/L (98-107) Carbon Dioxide Level 27mmol/L (21-32) Anion Gap 13 (6-14) Blood Urea Nitrogen 8mg/dL (7-20) Creatinine 0.9mg/dL (0.6-1.0) Estimated GFR (Cockcroft-Gault) 60.9 BUN/Creatinine Ratio 9 (6-20) Glucose Level 102mg/dL (70-99) Lactic Acid Level 1.6mmol/L (0.4-2.0) Calcium Level 9.4mg/dL (8.5-10.1) Total Bilirubin 0.7mg/dL (0.2-1.0) Aspartate Amino Transf (AST/SGOT) 18U/L (15-37) Alanine Aminotransferase (ALT/SGPT) 25U/L (14-59) Alkaline Phosphatase 85U/L (46-116) Total Protein 7.6g/dL (6.4-8.2) Albumin 4.1g/dL (3.4-5.0) Albumin/Globulin Ratio 1.2 (1.0-1.7) Lipase 116U/L (73-393) Thyroid Stimulating Hormone (TSH) 3.897uIU/mL (0.358-3.74) Bedside Troponin I 0.00ng/ml (<0.08) Test 06/05/16 04:50 White Blood Count 5.3x10^3/uL (4.0-11.0) Red Blood Count 3.67x10^6/uL (3.50-5.40) Hemoglobin 11.5g/dL (12.0-15.5) Hematocrit 33.9% (36.0-47.0) Mean Corpuscular Volume 92fL (79-100) Mean Corpuscular Hemoglobin 31pg (25-35) Mean Corpuscular Hemoglobin Concent 34g/dL (31-37) Red Cell Distribution Width 14.0% (11.5-14.5) Platelet Count 149x10^3/uL (140-400) Neutrophils (%) (Auto) 57% (31-73) Lymphocytes (%) (Auto) 28% (24-48) Monocytes (%) (Auto) 12% (0-9) Eosinophils (%) (Auto) 3% (0-3) Basophils (%) (Auto) 1% (0-3) Neutrophils # (Auto) 3.0x10^3uL (1.8-7.7) Lymphocytes # (Auto) 1.5x10^3/uL (1.0-4.8) Monocytes # (Auto) 0.6x10^3/uL (0.0-1.1) Eosinophils # (Auto) 0.1x10^3/uL (0.0-0.7) Basophils # (Auto) 0.0x10^3/uL (0.0-0.2) Sodium Level 145mmol/L (136-145) Potassium Level 3.5mmol/L (3.5-5.1) Chloride Level 109mmol/L (98-107) Carbon Dioxide Level 25mmol/L (21-32) Anion Gap 11 (6-14) Blood Urea Nitrogen 4mg/dL (7-20) Creatinine 0.7mg/dL (0.6-1.0) Estimated GFR (Cockcroft-Gault) 81.4 Glucose Level 87mg/dL (70-99) Calcium Level 7.7mg/dL (8.5-10.1) Laboratory Tests Test 06/04/16 15:38 06/04/16 15:40 06/04/16 16:15 06/04/16 18:09 Urine Collection Type Unknown Urine Color Straw Urine Clarity Clear Urine pH 7.0 Urine Specific [place] <=1.005 Urine Protein Negativemg/dL (NEG-TRACE) Urine Glucose (UA) Negativemg/dL (NEG) Urine Ketones (Stick) Negativemg/dL (NEG) Urine Blood Negative (NEG) Urine Nitrite Negative (NEG) Urine Bilirubin Negative (NEG) Urine Urobilinogen Dipstick 0.2mg/dL (0.2 mg/dL) Urine Leukocyte Esterase Negative (NEG) Urine RBC 0/HPF (0-2) Urine WBC 0/HPF (0-4) Urine Squamous Epithelial Cells Occ/LPF Urine Bacteria 0/HPF (0-FEW) White Blood Count 5.2x10^3/uL (4.0-11.0) Red Blood Count 4.31x10^6/uL (3.50-5.40) Hemoglobin 13.0g/dL (12.0-15.5) Hematocrit 39.1% (36.0-47.0) Mean Corpuscular Volume 91fL (79-100) Mean Corpuscular Hemoglobin 30pg (25-35) Mean Corpuscular Hemoglobin Concent 33g/dL (31-37) Red Cell Distribution Width 14.4% (11.5-14.5) Platelet Count 188x10^3/uL (140-400) Neutrophils (%) (Auto) 61% (31-73) Lymphocytes (%) (Auto) 27% (24-48) Monocytes (%) (Auto) 9% (0-9) Eosinophils (%) (Auto) 2% (0-3) Basophils (%) (Auto) 1% (0-3) Neutrophils # (Auto) 3.1x10^3uL (1.8-7.7) Lymphocytes # (Auto) 1.4x10^3/uL (1.0-4.8) Monocytes # (Auto) 0.5x10^3/uL (0.0-1.1) Eosinophils # (Auto) 0.1x10^3/uL (0.0-0.7) Basophils # (Auto) 0.1x10^3/uL (0.0-0.2) Sodium Level 141mmol/L (136-145) Potassium Level 3.7mmol/L (3.5-5.1) Chloride Level 101mmol/L (98-107) Carbon Dioxide Level 27mmol/L (21-32) Anion Gap 13 (6-14) Blood Urea Nitrogen 8mg/dL (7-20) Creatinine 0.9mg/dL (0.6-1.0) Estimated GFR (Cockcroft-Gault) 60.9 BUN/Creatinine Ratio 9 (6-20) Glucose Level 102mg/dL (70-99) Lactic Acid Level 1.6mmol/L (0.4-2.0) Calcium Level 9.4mg/dL (8.5-10.1) Total Bilirubin 0.7mg/dL (0.2-1.0) Aspartate Amino Transf (AST/SGOT) 18U/L (15-37) Alanine Aminotransferase (ALT/SGPT) 25U/L (14-59) Alkaline Phosphatase 85U/L (46-116) Total Protein 7.6g/dL (6.4-8.2) Albumin 4.1g/dL (3.4-5.0) Albumin/Globulin Ratio 1.2 (1.0-1.7) Lipase 116U/L (73-393) Thyroid Stimulating Hormone (TSH) 3.897uIU/mL (0.358-3.74) Bedside Troponin I 0.00ng/ml (<0.08) Test 06/05/16 04:50 White Blood Count 5.3x10^3/uL (4.0-11.0) Red Blood Count 3.67x10^6/uL (3.50-5.40) Hemoglobin 11.5g/dL (12.0-15.5) Hematocrit 33.9% (36.0-47.0) Mean Corpuscular Volume 92fL (79-100) Mean Corpuscular Hemoglobin 31pg (25-35) Mean Corpuscular Hemoglobin Concent 34g/dL (31-37) Red Cell Distribution Width 14.0% (11.5-14.5) Platelet Count 149x10^3/uL (140-400) Neutrophils (%) (Auto) 57% (31-73) Lymphocytes (%) (Auto) 28% (24-48) Monocytes (%) (Auto) 12% (0-9) Eosinophils (%) (Auto) 3% (0-3) Basophils (%) (Auto) 1% (0-3) Neutrophils # (Auto) 3.0x10^3uL (1.8-7.7) Lymphocytes # (Auto) 1.5x10^3/uL (1.0-4.8) Monocytes # (Auto) 0.6x10^3/uL (0.0-1.1) Eosinophils # (Auto) 0.1x10^3/uL (0.0-0.7) Basophils # (Auto) 0.0x10^3/uL (0.0-0.2) Sodium Level 145mmol/L (136-145) Potassium Level 3.5mmol/L (3.5-5.1) Chloride Level 109mmol/L (98-107) Carbon Dioxide Level 25mmol/L (21-32) Anion Gap 11 (6-14) Blood Urea Nitrogen 4mg/dL (7-20) Creatinine 0.7mg/dL (0.6-1.0) Estimated GFR (Cockcroft-Gault) 81.4 Glucose Level 87mg/dL (70-99) Calcium Level 7.7mg/dL (8.5-10.1) Medications Current Medications Fentanyl Citrate (Fentanyl 2ml Vial) 25 mcg PRN Q15MIN PRN IV PAIN GREATER THAN 3/10; Start 06/04/16 at 15:30; Stop 06/05/16 at 15:29 Ondansetron HCl 4 mg 4 mg 1X ONCE IV Last administered on 06/04/16 16:04; Start 06/04/16 at 15:30; Stop 06/04/16 at 15:31; Status DC Sodium Chloride (Iv Sodium Chloride 0.9% 500ml Bag) 500 ml @ 500 mls/hr 1X ONCE IV Last administered on 06/04/16 16:04; Start 06/04/16 at 15:30; Stop at 16:29; Status DC Dicyclomine HCl (Bentyl) 10 mg 1X ONCE PO Last administered on 06/04/16 17:57 ; Start 06/04/16 at 18:00; Stop 06/04/16 at 18:01; Status DC Polyethylene Glycol 17 gm 17 gm BID PO Last administered on 06/05/16 08:19; Start 06/04/16 at 21:00 Sodium Chloride (Iv Sodium Chloride 0.9% 1000ml Bag) 1,000 ml @ 100 mls/hr 1X ONCE IV Last administered on 06/04/16 19:01; Start 06/04/16 at 18:15; Stop at 04:14; Status DC Ondansetron HCl 4 mg 4 mg PRN Q8HRS PRN IV NAUSEA/VOMITING; Start 06/04/16 at 18:00; Stop 06/05/16 at 17:59 Sodium Chloride (Iv Sodium Chloride 0.9% 1000ml Bag) 1,000 ml @ 75 mls/hr [id number] IV Last administered on 06/05/16 05:30; Start 06/04/16 at 18:30; Stop 06/05/16 at 18:29 Acetaminophen (Tylenol) 650 mg PRN Q4HRS PRN PO FEVER Last administered on 06/05 00:34; Start 06/04/16 at 18:00; Stop 06/05/16 at 17:59 Polyethylene Glycol (miraLAX PACKET) 17 gm 1X ONCE PO Last administered on 19:01; Start 06/04/16 at 18:15; Stop 06/04/16 at 18:16; Status DC Acetaminophen (Tylenol) 325 mg PRN Q6HRS PRN PO MILD PAIN; Start 06/04/16 at 20 :15 Azelastine HCl (Astelin) 2 spray DAILY NS ; Start 06/05/16 at 09:00 Clopidogrel Bisulfate (Plavix) 75 mg DAILY PO ; Start 06/05/16 at 09:00; Stop at 09:00; Status DC Fluticasone Propionate (Flonase) 2 spray DAILY NS ; Start 06/05/16 at 09:00 Levothyroxine Sodium (Synthroid) 75 mcg DAILYAC PO Last administered on 08:26; Start 06/05/16 at 07:30 Lorazepam (Ativan) 0.5 mg HS PO Last administered on 06/04/16 21:59; Start at 21:00; Stop 06/05/16 at 09:00; Status DC Vitamin D (Vitamin D3) 2,000 unit DAILY PO Last administered on 06/05/16 08:23 ; Start 06/05/16 at 09:00 Cetirizine HCl (Zyrtec) 10 mg DAILYWSUP PO Last administered on 06/04/16 22:00 ; Start 06/04/16 at 20:30 Metoprolol Succinate (Toprol Xl) 50 mg DAILY PO ; Start 06/05/16 at 09:00; Stop 06/05/16 at 09:00; Status DC Famotidine (Pepcid) 20 mg PRN DAILY PRN PO HEARTBURN / GAS; Start 06/04/16 at 21:00 Lactobacillus Acidophilus (Bacid, Lanie-Bid) 1 tab TIDWMEALS PO Last administered on 06/05/16 12:01; Start 06/05/16 at 08:00 Simethicone (Gas-X) 160 mg PRN Q4HRS PRN PO GAS / BLOATING Last administered on 06/04/16 22:00; Start 06/04/16 at 20:15 Metoclopramide HCl (Reglan) 10 mg TIDACHC PO Last administered on 06/05/16 12: 01; Start 06/04/16 at 21:00 Clopidogrel Bisulfate (Plavix) 75 mg DAILYWSUP PO ; Start 06/05/16 at 17:00 Lorazepam (Ativan) 1 mg PRN BID PRN PO ANXIETY / AGITATION; Start 06/05/16 at 09:00 Metoprolol Succinate (Toprol Xl) 25 mg DAILY PO ; Start 06/05/16 at 09:00 Lorazepam (Ativan) 0.5 mg 1X ONCE PO Last administered on 06/05/16 00:33; Start 06/05/16 at 00:30; Stop 06/05/16 at 00:31; Status DC Active Scripts Active Reported Flecainide Acetate 50 Mg Tablet 50 Mg PO BID 90 Days Metoprolol Succinate ( Xl ) (Metoprolol Succinate) 25 Mg Tab.er.24h 25 Mg PO DAILYBFRSUP Lorazepam 1 Mg Tablet 1 Mg PO PRN BID PRN 30 Days Probiotic (Lactobacillus Combo No.11) 1 Each Cap.sprink 1 Each PO DAILY Ranitidine Hcl 150 Mg Capsule 150 Mg PO PRN DAILY PRN Clopidogrel (Clopidogrel Bisulfate) 75 Mg Tablet 1 Tab PO DAILYBFRSUP Azelastine Hcl 137 Mcg/0.137 Ml [place].pump 2 [place] NS DAILY Tylenol (Acetaminophen) 325 Mg Tablet 325 Mg PO PRN Vitamin D3 (Cholecalciferol (Vitamin D3)) 2,000 Unit Capsule 2,000 Unit PO DAILY Loratadine 10 Mg Tablet 10 Mg PO DAILYWSUP Flonase (Fluticasone Propionate) 16 Gm [place].susp 2 [place] NS DAILY Synthroid (Levothyroxine Sodium) 75 Mcg Tablet 75 Mcg PO DAILYAC Vitals/I & O Vital Sign - Last 24 Hours 06/04/16 06/04/16 06/04/16 06/04/16 15:33 17:15 17:45 18:30 Temp 98.1 98.1 Pulse 77 72 72 100 Resp 20 18 18 20 B/P 157/89 139/71 140/65 113/63 Pulse Ox 96 95 95 97 O2 Delivery Room Air Room Air Room Air Room Air 06/04/16 06/04/16 06/04/16 06/05/16 19:00 20:17 22:30 02:30 Temp 97.6 97.8 97.4 97.6 97.8 97.4 Pulse 94 74 70 82 Resp 16 18 18 17 B/P 115/67 142/75 130/66 104/61 Pulse Ox 97 94 96 96 O2 Delivery Room Air Room Air Room Air Room Air 06/05/16 06/05/16 06/05/16 06/05/16 07:00 08:00 08:25 11:13 Temp 97.3 98.1 97.3 98.1 Pulse 77 77 75 Resp 18 18 B/P 100/50 100/50 119/57 Pulse Ox 95 95 O2 Delivery Room Air Room Air Intake and Output 06/04/16 06/04/16 06/05/16 15:00 23:00 07:00 Intake Total 500 ml 700 ml Balance 500 ml 700 ml MAGALI DOYLE III DO Jun 05, 2016 13:21
--- NOTE | 2016-06-07 03:41 | DS ---
DATE OF DISCHARGE: 06/05/2016 ADMISSION DIAGNOSIS: Abdominal pain. DISCHARGE DIAGNOSES: Resolving abdominal pain, suspect constipation. HOSPITAL COURSE: The patient is a pleasant 75-year-old female presented with abdominal pain. She was admitted. We consulted GI. We did imaging, it appears she probably had constipation. We cleared her bowels with laxatives. She is doing better. We plan to discharge. DISPOSITION: Home. ACTIVITY: As tolerated. DIET: Low sodium. MEDICATIONS: Please see the MRAD. TOTAL TIME: 34 minutes. MAGALI DOYLE DO DR: IVONNE/sunday JOB#: [id number] / [id number]
== END 2016-06-05 14:04 | disposition home or self-care (01) ==
LOC: ER 14:35 → 5 SOUTH 17:46
PROVIDERS: ADMIT Internal Medicine Hematology & Oncology; ATTEND Internal Medicine Hematology & Oncology
DX: K59.00 Constipation, unspecified (principal); R19.7 Diarrhea, unspecified; E03.9 Hypothyroidism, unspecified; G47.33 Obstructive sleep apnea (adult) (pediatric); I10 Essential (primary) hypertension; I48.91 Unspecified atrial fibrillation; Z85.3 Personal history of malignant neoplasm of breast; Z91.041 Radiographic dye allergy status
CPT/HCPCS: 36415; 74176; 80048; 80053; 81001; 83605; 83690; 84443; 84484; 85027; 93005; 96361; 96374; G0378; G0379; J2405; J7030; J7040; J8597

== ENCOUNTER 2016-07-29 15:06 | Emergency (ER) | payer MEDICARE, BC ==
[~2016-07-29] VITALS: Ht 162.6 cm; Wt 85.3 kg
[~2016-07-29 15:06] MED LIST changes: -CHOL20003 PO; +CHOL20009 PO; +FLEC50TA PO; -HYDR-2666 PO; +HYDR-2758 PO; +LORA1TAB PO; +POLY17PO29 PO; -POLY17PO5 PO
[2016-07-29 15:45] LABS: BASO % 1 % (0-3); EOS % 2 % (0-3); HEMATOCRIT 39.8 % (36.0-47.0); HEMOGLOBIN 13.5 g/dL (12.0-15.5); LYMPH % 22 % (24-48); MEAN CORPUSCULAR HEMOGLOBIN 32 pg (25-35); MEAN CORPUSCULAR HGB CONC 34 g/dL (31-37); MEAN CORPUSCULAR VOLUME 93 fL (79-100); MONO % 12 % (0-9); NEUT % 64 % (31-73); PLATELET COUNT 193 x10^3/uL (140-400); RED BLOOD COUNT 4.29 x10^6/uL (3.50-5.40); RED CELL DISTRIBUTION WIDTH 13.7 % (11.5-14.5); WHITE BLOOD COUNT 4.6 x10^3/uL (4.0-11.0)
[2016-07-29] MEDS ORDERED: IV NORMAL SALINE 500ML BAG 500 ML IV ONE (15:45)
[2016-07-29] MEDS ORDERED: fentaNYL PF VIAL 100 MCG/2 ML VIAL IV PRN (15:45)
[2016-07-29] MEDS: METOCLOPRAMIDE HCL 10 MG/2 ML VIAL. IV ONE ×2 (15:45→16:04)
[2016-07-29 16:15] LABS: CALCIUM 9.1 mg/dL (8.5-10.1); CREATININE 0.9 mg/dL (0.6-1.0); GFR 60.9
[2016-07-29] MEDS ORDERED: ONDANSETRON PF 4 MG/2 ML VIAL. IV ONE (16:15)
[2016-07-29 16:22] LABS: DIRECT BILIRUBIN 0.1 mg/dL (0.0-0.2); TOTAL BILIRUBIN 0.5 mg/dL (0.2-1.0); TOTAL PROTEIN 7.6 g/dL (6.4-8.2)
--- NOTE | 2016-07-29 16:24 | RAD ---
Right upper quadrant abdominal ultrasound, 07/29/2016: History: Abdominal pain and nausea The gallbladder is not adequately visualized, probably due to contraction related to the patient's nonfasting state. She reportedly ate 3 hours ago. There is no evidence of bile duct dilatation or a hepatic mass. The pancreas was largely obscured by overlying bowel. Limited views of the right kidney show no abnormality. IMPRESSION: Nonvisualization of the gallbladder due to the patient's nonfasting state.
--- NOTE | 2016-07-29 17:04 | PHYS DOC ---
Past Medical History Past Medical History: A-Fib, Cancer, Hypothyroid Additional Past Medical Histor: breast cancer '09,lymphadema,sinus infection Past Surgical History: Cancer Surgery, Tonsillectomy Additional Past Surgical Histo: left mastectomy, Alcohol Use: None Drug Use: None Adult General Chief Complaint Chief Complaint: ABDOMINAL PAIN HPI HPI Patient is a 75 year old female who presents with acute on chronic intermittent right abdominal pain associated with nausea and dry heaving. Notes some diarrhea today as well associated with taking miralax for BM regulation. Has been dealing with this for a couple months now and has prior workup including CT and endoscopy. She is seeing GI and she is worried this may be her gallbladder and would like to get her ultrasound today instead of waiting for planned outpatient ultrasound. Review of Systems Review of Systems Constitutional: Denies fever or chills [] Eyes: Denies change in visual acuity, redness, or eye pain [] HENT: Denies nasal congestion or sore throat [] Respiratory: Denies cough or shortness of breath [] Cardiovascular: No additional information not addressed in HPI [] GI: Denies abdominal pain, nausea, vomiting, bloody stools or diarrhea [] : Denies dysuria or hematuria [] Musculoskeletal: Denies back pain or joint pain [] Integument: Denies rash or skin lesions [] Neurologic: Denies headache, focal weakness or sensory changes [] Endocrine: Denies polyuria or polydipsia [] Current Medications Current Medications Current Medications Medications (Trade) Dose Ordered Sig/Brock Start Time Stop Time Status Last Admin Dose Admin Fentanyl Citrate (Fentanyl 2ml Vial) 50 mcg PRN Q15MIN PRN 07/29/16 15:45 07/29/16 18:42 DC 07/29/16 16:04 50 MCG Metoclopramide HCl (Reglan) 10 mg 1X ONCE 07/29/16 15:45 07/29/16 15:46 DC Ondansetron HCl (Zofran) 4 mg 1X ONCE 07/29/16 16:15 07/29/16 16:16 DC 07/29/16 16:17 4 MG Sodium Chloride 500 ml @ 500 mls/hr 1X ONCE 07/29/16 15:45 07/29/16 16:44 DC 07/29/16 16:04 500 MLS/HR Allergies Allergies Allergies Coded Allergies Type Severity Reaction Last Updated Verified azithromycin Allergy Severe Anaphylaxis 01/10/15 No diphenhydramine Allergy Severe Anaphylaxis 01/10/15 Yes erythromycin base Allergy Severe Anaphylaxis 09/04/13 Yes iodine Allergy Severe 10/15/13 Yes sodium phosphate Allergy Severe Anaphylaxis 01/10/15 Yes vancomycin Allergy Severe Anaphylaxis 09/04/13 Yes Penicillins Allergy Intermediate Swelling 01/10/15 Yes Sulfa (Sulfonamide Antibiotics) Allergy Intermediate oral sores 10/15/13 No alendronate sodium Allergy Intermediate vision changes 01/10/15 Yes anastrozole Allergy Intermediate Unknown 01/10/15 Yes cefdinir Allergy Intermediate Diarrhea 01/10/15 Yes clarithromycin Allergy Intermediate Unknown 01/10/15 Yes doxepin Allergy Intermediate dizzyness 01/10/15 Yes ibuprofen Allergy Intermediate sores 01/10/15 Yes levofloxacin Allergy Intermediate Unknown 01/10/15 Yes moxifloxacin Allergy Intermediate Unknown 01/10/15 Yes naproxen Allergy Intermediate sores 12/18/15 Yes strawberry Allergy Intermediate Unknown 01/10/15 Yes tizanidine Allergy Intermediate heart palpitaions 01/10/15 Yes tramadol Allergy Intermediate oral rash 10/15/13 No venom-wasp Allergy Intermediate Unknown 01/10/15 Yes amoxicillin Allergy Mild sores 01/10/15 Yes metoclopramide Allergy Mild ITCHY 07/29/16 Yes cyclobenzaprine Adverse Reaction Severe felt bed moving, felt like someone was in bed 03/12/14 No morphine Adverse Reaction Intermediate vomiting 03/12/14 No aspirin Adverse Reaction Mild hurts stomach 03/12/14 No Physical Exam Physical Exam Constitutional: Well developed, well nourished, no acute distress, non-toxic appearance. [] HENT: Normocephalic, atraumatic, bilateral external ears normal, oropharynx moist, nose normal. [] Eyes: PERRLA, EOMI. [] Neck: Normal range of motion, supple. [] Cardiovascular:Heart rate regular rhythm [] Lungs & Thorax: Bilateral breath sounds clear to auscultation [] Abdomen: Bowel sounds normal, soft, mild RLQ>RUQ tenderness, nondistended, no guarding or rebound. [] Skin: Warm, dry, no erythema, no rash. [] Back: No tenderness, no CVA tenderness. [] Extremities: No tenderness, ROM intact, no edema. [] Neurologic: Alert and oriented X 3, normal motor function, normal sensory function, no focal deficits noted. [] Psychologic: Affect normal, judgement normal, mood normal. [] Current Patient Data Vital Signs Vital Signs Date Time Temp Pulse Resp B/P (MAP) Pulse Ox O2 Delivery O2 Flow Rate FiO2 07/29/16 18:18 54 21 122/60 (80) 99 Room Air 07/29/16 15:15 97.8 97.8 Lab Values Laboratory Tests Test 07/29/16 15:20 07/29/16 16:55 White Blood Count 4.6 x10^3/uL (4.0-11.0) Red Blood Count 4.29 x10^6/uL (3.50-5.40) Hemoglobin 13.5 g/dL (12.0-15.5) Hematocrit 39.8 % (36.0-47.0) Mean Corpuscular Volume 93 fL (79-100) Mean Corpuscular Hemoglobin 32 pg (25-35) Mean Corpuscular Hemoglobin Concent 34 g/dL (31-37) Red Cell Distribution Width 13.7 % (11.5-14.5) Platelet Count 193 x10^3/uL (140-400) Neutrophils (%) (Auto) 64 % (31-73) Lymphocytes (%) (Auto) 22 % (24-48) L Monocytes (%) (Auto) 12 % (0-9) H Eosinophils (%) (Auto) 2 % (0-3) Basophils (%) (Auto) 1 % (0-3) Neutrophils # (Auto) 2.9 x10^3uL (1.8-7.7) Lymphocytes # (Auto) 1.0 x10^3/uL (1.0-4.8) Monocytes # (Auto) 0.5 x10^3/uL (0.0-1.1) Eosinophils # (Auto) 0.1 x10^3/uL (0.0-0.7) Basophils # (Auto) 0.0 x10^3/uL (0.0-0.2) Sodium Level 136 mmol/L (136-145) Potassium Level 4.0 mmol/L (3.5-5.1) Chloride Level 100 mmol/L (98-107) Carbon Dioxide Level 26 mmol/L (21-32) Anion Gap 10 (6-14) Blood Urea Nitrogen 10 mg/dL (7-20) Creatinine 0.9 mg/dL (0.6-1.0) Estimated GFR (Cockcroft-Gault) 60.9 Glucose Level 151 mg/dL (70-99) H Calcium Level 9.1 mg/dL (8.5-10.1) Total Bilirubin 0.5 mg/dL (0.2-1.0) Direct Bilirubin 0.1 mg/dL (0.0-0.2) Aspartate Amino Transferase (AST) 20 U/L (15-37) Alanine Aminotransferase (ALT) 23 U/L (14-59) Alkaline Phosphatase 86 U/L (46-116) Total Protein 7.6 g/dL (6.4-8.2) Albumin 4.0 g/dL (3.4-5.0) Lipase 137 U/L (73-393) Urine Color Yellow Urine Clarity Clear Urine pH 6.5 Urine Specific Gladys <=1.005 Urine Protein Negative mg/dL (NEG-TRACE) Urine Glucose (UA) Negative mg/dL (NEG) Urine Ketones (Stick) Negative mg/dL (NEG) Urine Blood Negative (NEG) Urine Nitrite Negative (NEG) Urine Bilirubin Negative (NEG) Urine Urobilinogen Dipstick 0.2 mg/dL (0.2 mg/dL) Urine Leukocyte Esterase Trace (NEG) Urine RBC 0 /HPF (0-2) Urine WBC 1-4 /HPF (0-4) Urine Squamous Epithelial Cells Occ /LPF Urine Bacteria Few /HPF (0-FEW) Laboratory Tests 07/29/16 15:20 Laboratory Tests 07/29/16 15:20 Radiology/Procedures Radiology/Procedures Ultrasound RUQ IMPRESSION: Nonvisualization of the gallbladder due to the patient's nonfasting state. DICTATED and SIGNED BY: SAHIL SANTO MD DATE: 07/29/16 2581 Course & Med Decision Making Course & Med Decision Making Pertinent Labs and Imaging studies reviewed. (See chart for details) Laboratory evaluation is unremarkable. Ultrasound does not show GB; prior CT shows contracted GB without other noted abnormality. She is feeling much better now. She is tolerating oral intake. Discussed she should follow up for fasting ultrasound of RUQ as planned. Return precautions given. She and understand and agree with plan. Dragon Disclaimer Dragon Disclaimer This electronic medical record was generated, in whole or in part, using a voice recognition dictation system. Departure Departure Impression: Primary Impression: Abdominal pain Additional Impression: Nausea Disposition: 01 HOME, SELF-CARE Condition: STABLE Referrals: RAHAT VERAS Jr, MD (PCP) Patient Instructions: Abdominal Pain, [id number] Additional Instructions: Continue your current medications. Follow-up with your primary care doctor and GI clinic. Return for any concerns. Problem Qualifiers Primary Impression: Abdominal pain Abdominal location: unspecified location Qualified Codes: R10.9 - Unspecified abdominal pain Chele REESE MD Jul 29, 2016 17:04
[2016-07-29 17:10] LABS: BILIRUBIN,URINE NEGATIVE (NEG); GLUCOSE,URINE NEGATIVE (NEG); NITRITE,URINE NEGATIVE (NEG); PH,URINE 6.5; PROTEIN,URINE NEGATIVE (NEG-TRACE); UROBILINOGEN,URINE 0.2 mg/dL (0.2 mg/dL)
[2016-07-29 17:26] LABS: BACTERIA,URINE FEW /HPF (0-FEW); RBC,URINE 0 /HPF (0-2); SQUAMOUS EPITHELIAL CELL,UR OCC /LPF
[2016-07-29 18:18] VITALS: BP 122/60
== END 2016-07-29 18:30 | disposition home or self-care (01) ==
LOC: ER 15:06
DX: R10.9 Unspecified abdominal pain (principal); R11.0 Nausea; I48.91 Unspecified atrial fibrillation; E03.9 Hypothyroidism, unspecified; Z85.3 Personal history of malignant neoplasm of breast; Z90.89 Acquired absence of other organs
CPT/HCPCS: 36415; 76705; 80048; 80076; 81001; 83690; 85027; 87086; 96361; 96374; 96375; 99285; J2405; J3010; J7040; J2765

== ENCOUNTER → 2016-08-04 | Outpatient (CLI) | payer MEDICARE, BC ==
[2016-07-29 18:18] VITALS: BP 122/60
--- NOTE | 2016-08-04 09:08 | KCIC ---
ABDOMEN COMPLETE History: Epigastric pain Comparison: None. Findings: Multiple sonographic images of the abdomen are submitted. There is no significant abnormality of the visualized pancreas. Abdominal aortic caliber is within normal limits up to 2.1 cm in greatest dimension proximally. There is segmental visualization of the inferior vena cava. No significant free fluid is demonstrated. There is diffuse coarsening of the echotexture of the liver. Right lobe of the liver measured 16 cm longitudinal. There are echogenic foci in the gallbladder lumen, largest focus on the order of 1.4 cm in size. There are also apparently gallstones at the gallbladder neck which do not change in position with patient repositioning. There is no significant gallbladder wall thickening or pericholecystic fluid. There is no reported evidence of a sonographic Levine's sign. Right kidney measured 11.8 x 4.6 x 4.7 cm. Left kidney measured 12.3 x 3.8 x 4.8 cm. There is no hydronephrosis of either kidney. Spleen is not well visualized due to bowel gas, estimated at 9.3 cm in size. Impression: 1. There is cholelithiasis including gallstones remaining in the gallbladder neck when patient was repositioned. There is no significant gallbladder wall thickening or pericholecystic fluid. 2. There is hepatic steatosis. Electronically signed by: Bhavin López MD (08/04/2016 9:05 AM)
== END | disposition home or self-care (01) ==
LOC: KCIC US 07:38
PROVIDERS: ATTEND Internal Medicine Gastroenterology
DX: K80.20 Calculus of gallbladder without cholecystitis without obstruction (principal); K76.0 Fatty (change of) liver, not elsewhere classified
CPT/HCPCS: 76700

== ENCOUNTER 2016-08-12 11:05 | Observation (INO) | payer MEDICARE, BC ==
[~2016-08-12] VITALS: Ht 162.6 cm; Wt 84.1 kg
[2016-08-12] VITALS (10 sets, daily range): BP systolic 109–153; BP diastolic 54–70
[~2016-08-12 11:05] MED LIST changes: +IV RINGERS,LACTATED 1000ML 1,000 ML IV SCH; +LIDOCAINE 1% 1 ML SYRINGE. ID PRN; +ONDA4TAB7 PO; +PANT20TA2 PO; +PROCHLORPERAZINE 10 MG/2 ML VIAL. IV PRN; +SCOP1PAT TD; +SIME125T PO; +TRAM50TA PO; +fentaNYL PF VIAL 100 MCG/2 ML VIAL IV PRN
[2016-08-12] MEDS ORDERED: IOHEXOL 300 MG/ML 50 ML VIAL. ONE (12:38)
[2016-08-12] MEDS ORDERED: SURGICEL HEMOSTAT 4X8 EACH. ONE (12:38)
[2016-08-12] MEDS ORDERED: BUPIVACAINE-EPI 0.5%-1:200000 50 ML VIAL. ONE (12:38)
[2016-08-12] MEDS ORDERED: NEOSTIGMINE 10 MG/10 ML VIAL. ONE (13:12)
[2016-08-12] MEDS ORDERED: PROPOFOL 20 ML IV ONE (13:12)
[2016-08-12] MEDS ORDERED: ONDANSETRON PF 4 MG/2 ML VIAL. ONE ×2 (13:12→13:25)
[2016-08-12] MEDS ORDERED: SEVOFLURANE 61 TO 120 MINUTES. IH ONE (13:12)
[2016-08-12] MEDS ORDERED: fentaNYL PF VIAL 100 MCG/2 ML VIAL ONE (13:12)
[2016-08-12] MEDS ORDERED: ROCURONIUM 50 MG/5 ML VIAL. ONE (13:13)
[2016-08-12] MEDS ORDERED: GLYCOPYRROLATE 1 MG/5 ML VIAL. ONE (13:13)
[2016-08-12] MEDS ORDERED: DEXAMETHASONE SOD PHOS 20 MG/5 ML VIAL. ONE (13:14)
[2016-08-12] MEDS ORDERED: LIDOCAINE 2% PF Vial for OR 5 ML VIAL. ONE (13:14)
[2016-08-12] MEDS ORDERED: ePHEDrine PF IN SALINE 50 MG/5 ML DISP.SYRIN IV ONE (13:39)
--- NOTE | 2016-08-12 14:20 | RAD ---
Indication operative cholangiogram. For members of the Department of surgery 3 spot fluoroscopic images were obtained. Fluoroscopy time associated with the imaging was 19 seconds. No filling defects to suggest choledocholithiasis are seen. Contrast is seen spilling into the duodenum. IMPRESSION: Negative study for choledocholithiasis
--- NOTE | 2016-08-12 14:25 | PDOC4 ---
Operative Note Operative Note Operative Note: Preoperative Diagnosis: Symptomatic cholelithiasis Postoperative Diagnosis: Same Procedure: Laparoscopic cholecystectomy with intraoperative cholangiogram Surgeons: Anjum Anesthesia: GenAlcira Estimated Blood Loss: 10 mL Specimen: Gallbladder to pathology Drains: None Complications: None Indications: The patient is a 75-year-old female who is been experiencing recurrent upper abdominal pain consistent with biliary colic. Her evaluation identified gallstones. Surgical treatment was offered by means of a laparoscopic cholecystectomy. The risks of surgery were discussed which include bleeding, infection, bile duct injury, bile leak, pain, the potential for additional surgeries or procedures. The patient understands and would like to proceed. Description: The patient was taken to the operating room and laid supine on the operating table. General anesthesia was performed. The abdomen was prepped with ChloraPrep and draped in a standard surgical fashion. A small infraumbilical incision was made with a scalpel. The Veress needle was then inserted and a pneumoperitoneum was then created. A 5 mm trocar was then inserted and the laparoscope was introduced. In the upper midabdomen a 5 mm trocar was inserted and in the right upper quadrant two 2.3 mm mini lap graspers were inserted. The gallbladder was retracted cephalad. The cystic duct was dissected free from surrounding tissues. One clip was placed on the duct near the gallbladder junction. An opening was made in the duct and a cholangiocatheter placed within and secured with a clip. Using contrast dye and fluoroscopy an intraoperative cholangiogram was performed that appeared unremarkable. The clip and catheter were then withdrawn. Three clips were placed on the cystic duct and it was divided. The cystic artery was then identified, dissected free, doubly clipped and divided as well. The gallbladder was then mobilized away from the liver with cautery. The umbilical 5 millimeter trocar was exchanged for an 11 millimeter trocar. The gallbladder was then placed in an endoscopic bag and extracted at the umbilical trocar site. The fascia there was closed with an 0 Vicryl suture. All blood and irrigation fluid was suctioned and hemostasis was good. The remaining ports were removed and the pneumoperitoneum was relieved. The skin incisions were injected with half percent Marcaine with epinephrine, and all were closed using 4-0 Monocryl suture. Steri-Strips and dressings were then applied. The patient tolerated the procedure well and was sent to the recovery room in stable condition. At the end of the case all counts were correct. POLA FRANCISCO MD Aug 12, 2016 14:25
[2016-08-12] MEDS: IV 1/2 NORMAL SALINE 1,000 ML IV SCH (14:27)
[2016-08-12] MEDS ORDERED: HYDROcodone/APAP 5/325MG 1 TAB TABLET PO PRN ×2 (14:30)
[2016-08-12] MEDS ORDERED: DEXTROSE 50% 25 GM / 50ML DISP.SYRIN. IV PRN (14:30)
[2016-08-12] MEDS ORDERED: HYDROmorphone 2 MG/ML VIAL IV PRN (14:30)
[2016-08-12] MEDS ORDERED: ONDANSETRON PF 4 MG/2 ML VIAL. IV PRN (14:30)
[2016-08-12] MEDS ORDERED: 0.9 % SODIUM CHLORIDE 10 ML DISP.SYRIN. IV PRN (14:30)
[2016-08-12] MEDS ORDERED: LORazepam 1 MG TABLET PO PRN (14:45)
[2016-08-12] MEDS: PANTOPRAZOLE 40 MG TABLET.DR. PO SCH ×2 (16:30→19:01)
[2016-08-12] MEDS: METOPROLOL SUCC 24HR ER 25 MG TAB.ER.24H. PO SCH ×2 (17:00→19:01)
[2016-08-12] MEDS: FLECAINIDE ACETATE 50 MG TABLET. PO SCH (22:11)
[2016-08-13 03:25] VITALS: BP 118/55
[2016-08-13] MEDS: IV 1/2 NORMAL SALINE 1,000 ML IV SCH (04:45)
[2016-08-13 07:00] VITALS: BP 114/49
[2016-08-13] MEDS ORDERED: LEVOTHYROXINE 75 MCG TABLET PO SCH (07:30)
[2016-08-13] MEDS: PANTOPRAZOLE 40 MG TABLET.DR. PO SCH (08:25)
[2016-08-13] MEDS: FLECAINIDE ACETATE 50 MG TABLET. PO SCH (08:26)
--- NOTE | 2016-08-13 08:58 | PDOC ---
SANTY LUJAN APRN 08/13/16 0858: SURGICAL PROGRESS NOTE Subjective feels pretty well did not like the norco, made her dizzy, normally takes tramadol at home tolerating clears urinating Vital Signs Vital Signs Date Time Temp Pulse Resp B/P (MAP) Pulse Ox O2 Delivery O2 Flow Rate FiO2 08/13/16 08:26 66 114/49 08/13/16 07:00 97.9 16 91 Room Air 97.9 08/12/16 20:00 2.0 I&O Intake and Output 08/13/16 06:59 Intake Total 2650 ml Output Total 410 ml Balance 2240 ml Intake Oral 1000 ml IV Total 1650 ml Output Urine Total 400 ml Estimated Blood Loss 10 ml # Voids 5 General: Alert, Oriented X3, Cooperative, No acute distress Abdomen: Soft, Other (lap sites c/d/i, no erythema ) Labs Laboratory Tests Test 08/12/16 11:32 Glucose (Fingerstick) 96 mg/dL (70-99) Laboratory Tests Test 08/12/16 11:32 Glucose (Fingerstick) 96 mg/dL (70-99) Assessment/Plan s/p lap ila ok to dc home after tolerates soft diet Problems: POLA FRANCISCO MD 08/13/16 1643: SURGICAL PROGRESS NOTE Assessment/Plan Agree with above Problems: SANTY LUJAN APRN Aug 13, 2016 08:58 POLA FRANCISCO MD Aug 13, 2016 16:43
[2016-08-13] MEDS ORDERED: AZELASTINE NASAL SPRAY 30ML BOTTLE. NS SCH (09:00)
[2016-08-13] MEDS ORDERED: traMADol 50 MG TABLET PO PRN (09:00)
[2016-08-13] MEDS ORDERED: FLUTICASONE 50MCG/NASAL SPRAY 16GM BOTTLE. NS SCH (09:00)
[2016-08-13 11:00] VITALS: BP 126/65
--- NOTE | 2016-08-16 13:02 | PDOC3 ---
Discharge Summary* Date of Admission: Aug 12, 2016 Date of Discharge: Aug 13, 2016 Admitting Diagnosis Symptomatic cholelithiasis Problems: Final Diagnosis Symptomatic cholelithiasis CONSULTS none Procedures laparoscopic cholecystectomy Brief Hospital Course Ms. Richmond is a 75 old female who presented with Symptomatic cholelithiasis. Underwent the above procedure. Postoperatively tolerating diet, ambulating, and pain managed on oral medications. Ready for discharge home Disposition/Orders: D/C to Home CONDITION AT DISCHARGE: Improved, Stable Diet: Regular Scheduled Azelastine Hcl (Azelastine Hcl), 2 SPRAY NS DAILY, (Reported) Cholecalciferol (Vitamin D3) (Vitamin D3), 4,000 UNIT PO DAILY, (Reported) Clopidogrel Bisulfate (Clopidogrel), 1 TAB PO DAILYBFRSUP, (Reported) Flecainide Acetate (Flecainide Acetate), 50 MG PO BID, (Reported) Fluticasone Propionate (Flonase), 2 SPRAY NS DAILY, (Reported) Lactobacillus Combo No.11 (Probiotic), 1 EACH PO DAILY, (Reported) Levothyroxine Sodium (Synthroid), 75 MCG PO DAILYAC, (Reported) Loratadine (Loratadine), 10 MG PO DAILYWSUP, (Reported) Metoprolol Succinate (Metoprolol Succinate ( Xl )), 25 MG PO DAILYBFRSUP, ( Reported) Pantoprazole Sodium (Protonix), 20 MG PO BID, (Reported) Polyethylene Glycol 3350 (Miralax), 1 PKT PO DAILY, (Reported) Simethicone (Gas-X), 125 MG PO QID, (Reported) Scheduled PRN Acetaminophen (Tylenol), 325 MG PO for PAIN, (Reported) Lorazepam (Lorazepam), 0.5 MG PO PRN BID PRN for ANXIETY / AGITATION, (Reported) Metoprolol Succinate (Metoprolol Succinate ( Xl )), 12.5 MG PO PRN 1X PRN for SEE COMMENTS, (Reported) Ondansetron Hcl (Zofran), 4 MG PO BID PRN for NAUSEA/VOMITING, (Reported) Ranitidine Hcl (Ranitidine Hcl), 150 MG PO PRN DAILY PRN for INDIGESTION, ( Reported) Scopolamine (Transderm-Scop), 1 EACH TD PRN PRN for DIZZINESS, (Reported) Tramadol Hcl (Tramadol Hcl), 25 MG PO Q6H PRN for PAIN, (Reported) Discontinued Medications Flecainide Acetate (Flecainide Acetate), 50 MG PO BID, (Reported) FOLLOW UP APPOINTMENT: 2 weeks Time Spent Total time spent with patient [] minutes for coordination of care, counseling, and education. SANTY LUJAN APRN Aug 16, 2016 13:02
--- NOTE | 2016-08-16 13:32 | PATHOLOGY ---
PATHOLOGY REPORT * * * * * * * * FINAL DIAGNOSIS: Gallbladder, laparoscopic cholecystectomy: - Cholelithiasis. - Chronic cholecystitis. COMMENT: There is no evidence of malignancy. (TAYLORM:; d/t: 08/16/2016) REPORT ELECTRONICALLY SIGNED BY: Enrique Gunn M.D. DATE/TIME: 08/16/2016 13:32 * * * * * * * * GROSS PATHOLOGY: Received in formalin labeled "Katelyn Miller, gallbladder and contents" is a 7.8 x 3.0 x 2.7 cm, intact gallbladder with dark yellow green bile stained serosal surfaces. Opening the gallbladder reveals dark green velvety, bile stained mucosa and an average wall thickness of 0.3 cm. Calculi are present and no masses are noted grossly. Vest Front Presser sections from the body and fundus are submitted along with the proximal margin in cassette A1. The gallstones are released to the patient as requested on the pathology requisition. ([facility]; 08/13/16) INITIAL CPT CODE(S): A; 01553 Professional services performed [place] [facility] [place] [address] Technical services performed by [facility] at [address] [place] [address] [address] [address]. SPECIMEN(S) RECEIVED: A.Gallbladder and contents CLINICAL HISTORY: Cholelithiasis PATIENT: KATELYN MILLER /AGE: 7 1940 (Age: 75) PATIENT #: [id number] ALT CASE #: SPECIMEN COLLECTION DATE: 08/13/2016 SPECIMEN RECEIVED DATE: 08/13/2016 [facility] - [address] [place] [address] - PHONE: [phone] * * * END OF REPORT * * *
== END 2016-08-13 14:05 | disposition home or self-care (01) ==
LOC: SURG 11:05 → 4 NORTH 15:46
PROVIDERS: ADMIT Surgery; ATTEND Surgery
DX: K80.10 Calculus of gallbladder with chronic cholecystitis without obstruction (principal); K80.50 Calculus of bile duct without cholangitis or cholecystitis without obstruction
CPT/HCPCS: 47563; 74300; 82962; C1769; G0378; G0379; J0690; J0780; J1100; J2405; J2704; J2710; J3010; J3490; J7030; Q9967; 88304

== ENCOUNTER → 2016-12-10 | Outpatient (CLI) | payer MEDICARE, BC ==
[~2016-12-10] MED LIST changes: +IOHEXOL 180 MG/ML 10 ML VIAL. ONE; -IV RINGERS,LACTATED 1000ML 1,000 ML IV SCH; -LIDOCAINE 1% 1 ML SYRINGE. ID PRN; +METO-239 PO; -METO25TA9 PO; -PROCHLORPERAZINE 10 MG/2 ML VIAL. IV PRN; -fentaNYL PF VIAL 100 MCG/2 ML VIAL IV PRN; +methylPREDNISolone ACETATE 40 MG/ML VIAL. ONE; +methylPREDNISolone ACETATE 80 MG/ML VIAL. ONE
--- NOTE | 2016-12-10 11:00 | PAIN ---
DATE OF SERVICE: 12/10/2016 PROGRESS NOTE FOR PAIN CLINIC DIAGNOSES: 1. Lumbar radiculopathy with lumbar degenerative disk disease and lumbar low back pain. 2. Cervical radiculopathy with cervical degenerative disk disease and cervical spondylosis. HISTORY OF PRESENT ILLNESS: The patient is a 76-year-old female who returns for followup status post lumbar epidural steroid injection x 1, last seen on 03/18/2016. The patient did very well with about a 75% improvement for almost 6 months. The patient reports the pain has been returning since that time, the low back and left posterior gluteus, posterior thigh, lateral anterior thigh and mostly in the left but across the low back as well. The patient reports it is a 10 on a scale of 10 at its worst, is a 9 on average, is 6 on a scale of 10 today. The patient reports it is shooting, radiating and becoming more constant. The patient reports it awakens her from sleep occasionally but only very rarely, most time she feels better with lying on her back, sitting as opposed to standing which causes the pain significantly increased. The patient cannot walk for more than about 5 minutes or stand for more than 5 minutes as she has to sit down. The patient is using Lidoderm patches on her low back and her neck, which helped and tramadol 1 a day with ice packs, which has helped significantly as well. The patient reports no new motor or sensory deficits, no new bowel or bladder incontinence or other complaints. PAST MEDICAL HISTORY: Significant for hearing loss, hyperthyroidism, sinusitis, breast cancer on the left in 2004 and had mastectomy, GERD, tonsillectomy and a recent cholecystectomy as well this summer. MEDICATIONS: Complete, full and updated on the patient's chart. ALLERGIES: VANCOMYCIN, ERYTHROMYCIN, TRAMADOL and IODINE. SOCIAL HISTORY: The patient quit smoking many years ago, occasional alcoholic drink, but only about once a month on average. The patient reports she is currently retired at this time. FAMILY HISTORY: Significant for kidney disease, dementia and hypertension. REVIEW OF SYSTEMS: The patient's review of systems is positive for those items mentioned in history of present illness. All systems reviewed and otherwise negative. It is complete, full and well documented on the patient's chart. PHYSICAL EXAMINATION: VITAL SIGNS: The patient's blood pressure 126/62, pulse is 61, respirations are 18, temperature 98.1 degrees Fahrenheit and weight is 190 pounds. GENERAL: The patient is awake, alert, oriented, appropriate and very pleasant demeanor. HEENT: Head shows normocephalic and atraumatic. Extraocular movements are intact, symmetrical. Oral cavity, mucous membranes are moist and pink. Dentition is intact. NECK: Shows anterior throat supple without palpable lymphadenopathy noted. Swallow reflex is symmetrical. CHEST: Shows normal on inspection. Breath sounds are clear to auscultation bilaterally. HEART: Shows S1 and S2 clear. No murmurs auscultated. ABDOMEN: Obese, soft, nontender and nondistended. No palpable organomegaly noted. No rebound or guarding demonstrated. BACK: Shows spine grossly midline. Slight exaggeration of thoracic kyphosis and some mild flattening of lumbar lordotic curvature. No previous bruises, lesions, rashes or scars are noted. Lumbar distribution shows symmetrical on inspection on paraspinous musculature with palpation shows some moderate tenderness bilaterally, but without significant radiation or trigger points. The patient shows good rotation and motion of the lumbar spine, both laterally as well as extension and flexion without difficulty. No tenderness over the spinous processes, sacrum or sacroiliac regions with palpation. EXTREMITIES: Lower extremities show deep tendon reflexes 1+ in the patellar and tendo-calcaneus tendons. Motor exam is strong with approximately 4 on a scale of 5 dorsiflexion, extension, quadriceps and hamstring flexion but equal and symmetrical. Peripheral pulses are 1+ posterior tibial bilaterally. No peripheral edema is noted. Options were discussed with the patient and the patient's old chart was reviewed as her current medication regimen updated and current review of systems updated as well as noted and we will proceed with a lumbar epidural steroid injection. She did very well with these in the past. Risks were again discussed including but not limited to bleeding, infection, possibility of epidural hematoma, subsequent neurologic compromise, dural puncture, headaches, spinal cord and/or nerve damage, side effects of steroid medication and poor results regarding pain control. The patient understands and wishes to proceed. The patient will return to clinic in approximately 2 weeks for followup, was counseled on return appointment, activity level and side effects to be aware of. DIAGNOSIS: Lumbar radiculopathy with lumbar degenerative disk disease and low back pain. PROCEDURE: Lumbar epidural steroid injection in translaminar approach at the L4-L5 level using C-arm fluoroscopic guidance under sterile prep and drape using local anesthetic. MEDICATION INJECTED: A total of 120 mg Depo-Medrol plus 10 mL of preservative-free normal saline and 2 mL of Isovue for contrast. CONDITION AT DISCHARGE: Stable. The patient tolerated procedure well, had no complications. JERRELL JAY MD DR: KRISTA/sunday JOB#: [id number] / [id number]
== END | disposition home or self-care (01) ==
LOC: PNCL 08:57
PROVIDERS: ATTEND Anesthesiology
DX: M51.16 Intervertebral disc disorders with radiculopathy, lumbar region (principal); H91.90 Unspecified hearing loss, unspecified ear; E05.90 Thyrotoxicosis, unspecified without thyrotoxic crisis or storm; I48.91 Unspecified atrial fibrillation; K21.9 Gastro-esophageal reflux disease without esophagitis; E03.9 Hypothyroidism, unspecified; F41.9 Anxiety disorder, unspecified; Z90.49 Acquired absence of other specified parts of digestive tract; Z88.1 Allergy status to other antibiotic agents; Z88.8 Allergy status to other drugs, medicaments and biological substances; Z72.89 Other problems related to lifestyle; Z98.890 Other specified postprocedural states; Z88.6 Allergy status to analgesic agent; Z88.0 Allergy status to penicillin; Z87.891 Personal history of nicotine dependence
CPT/HCPCS: 62323; J1030; J1040

== ENCOUNTER → 2017-01-06 | Outpatient (CLI) | payer MEDICARE, BC ==
[~2017-01-06] MED LIST changes: +BUPIVACAINE MPF 0.25% 10 ML VIAL. ONE; -IOHEXOL 180 MG/ML 10 ML VIAL. ONE; +lidoderm patch; -methylPREDNISolone ACETATE 40 MG/ML VIAL. ONE; -methylPREDNISolone ACETATE 80 MG/ML VIAL. ONE
--- NOTE | 2017-01-06 17:50 | PAIN ---
DATE OF SERVICE: 01/06/2017 DIAGNOSES: 1. Cervical radiculopathy with cervical degenerative disk disease and cervical spondylosis. 2. Lumbar radiculopathy with lumbar degenerative disk disease and low back pain. 3. Left greater trochanteric bursitis. 4. Myofascial pain. HISTORY OF PRESENT ILLNESS: The patient is a 76-year-old female who returns for followup status post lumbar epidural steroid injection x 1 on 12/10/2016. The patient reports only minimal decrease in pain in her low back and left lower extremity, still significant radiating pain in the leg on the left side and in the low back, rated as an 8 on a scale of 10 at its worse, 8 on average and 4 at least and is a 5 today. The patient reports a sharp, shooting, radiating, becoming more severe and more constant, is quite disappointed that she did very well with an injection back in February of this year with about 70% improvement with her injection. She is worried that she is having some increased changes in her lumbar spine since she has seen a neurosurgeon who is recommending surgery as a last resort and would like to see if there is anything changed. The patient reports no new motor or sensory deficits, however, no new bowel or bladder incontinence or other complaints, worse with standing, walking, changing positions, better with sitting or lying down. It does not awaken her from sleep at night. She feels much better when she is off her feet. The patient reports otherwise no new changes or deficits. PHYSICAL EXAMINATION: VITAL SIGNS: The patient's blood pressure 138/86, pulse 63, respirations 16, temperature is 98.5 degrees Fahrenheit, weight is 189 pounds. GENERAL: The patient is awake, alert, oriented, appropriate, very pleasant demeanor. HEENT: Head shows normocephalic, atraumatic. The patient wears eyeglasses. Extraocular movements are intact and symmetrical. Oral cavity shows mucous membranes moist and pink. NECK: Shows anterior throat supple. CHEST: Shows breath sounds clear to auscultation bilaterally. HEART: Shows S1 and S2 clear. No murmurs auscultated. ABDOMEN: Obese, soft, nontender, nondistended. BACK: Shows spine grossly in midline. Lumbar paraspinous musculature shows some moderate tenderness with palpation and symmetrical on inspection with no radiation, no trigger points in this region. With palpation over the patient's superolateral gluteus on the left has significant areas of trigger point musculature and 2 discrete areas in the superolateral aspect of the left gluteus, with very significant pain radiating to the posterior thigh. With palpation of right side shows no such changes. The patient shows tenderness again with palpation over the left superolateral gluteus only. EXTREMITIES: Lower extremities showed deep tendon reflexes 1+ in the patellar and tendo calcaneus tendons. Motor exam is approximately 4 on a scale of 5 and symmetrical and equal bilaterally in strength. Peripheral pulses are 1+. No edema is noted bilaterally. Options were discussed with the patient and the patient's old chart was reviewed as her current medication regimen updated. Current review of systems updated today as well. We will proceed with trigger point injections of the left superolateral gluteus. Risks were again discussed including, but not limited to bleeding, infection, possibility of intravascular injection or sequelae, spread of local anesthetic and numbness, side effects of local anesthetic and poor results regarding pain control. The patient understands and wishes to proceed. The patient will return to clinic in approximately 2 weeks for followup. We will also order MRI scan of lumbar spine to compare to that of 2014, that is the most recent lumbar scan she has had, see if there are any significant changes that may explain why her radiculopathy is becoming persistent in her left leg. The patient will return to clinic after MRI scan as scheduled. DIAGNOSES: Myofascial pain with low back and lumbar radiculopathy on the left. PROCEDURE: Trigger point injection left gluteus x 2 regions using local anesthetic under sterile prep and drape. MEDICATION INJECTED: A total of 4 mL of 0.25% bupivacaine after negative aspiration. CONDITION AT DISCHARGE: Stable. The patient tolerated procedure well, had no complications. JERRELL JAY MD DR: KRISTA/sunday JOB#: [id number] / [id number]
== END ==
LOC: PNCL 09:50
PROVIDERS: ATTEND Anesthesiology
DX: M79.1 Myalgia (principal); M51.16 Intervertebral disc disorders with radiculopathy, lumbar region; M70.62 Trochanteric bursitis, left hip; G62.9 Polyneuropathy, unspecified; M16.12 Unilateral primary osteoarthritis, left hip; I48.91 Unspecified atrial fibrillation; F41.9 Anxiety disorder, unspecified; F17.200 Nicotine dependence, unspecified, uncomplicated; Z87.01 Personal history of pneumonia (recurrent); K21.9 Gastro-esophageal reflux disease without esophagitis; Z85.3 Personal history of malignant neoplasm of breast; Z90.12 Acquired absence of left breast and nipple; Z98.51 Tubal ligation status; Z85.828 Personal history of other malignant neoplasm of skin; Z79.01 Long term (current) use of anticoagulants; Z98.890 Other specified postprocedural states; Z82.49 Family history of ischemic heart disease and other diseases of the circulatory system
CPT/HCPCS: 20552; J3490

== ENCOUNTER → 2017-01-07 | Outpatient (CLI) | payer MEDICARE, BC ==
[~2017-01-07] MED LIST changes: -BUPIVACAINE MPF 0.25% 10 ML VIAL. ONE
--- NOTE | 2017-01-07 14:07 | KCIC ---
MRI Lumbar Spine without contrast History: Lumbar radiculopathy, left lumbar pain in the left hip and left leg Technique: Multiplanar, multi sequential noncontrast MR imaging was performed of the lumbar spine. Contrast: None Comparison: July 03, 2013 Findings: Lumbar vertebral body stature is preserved. There is again grade 1 anterior spondylolisthesis at L4-5, negligible posterior subluxation L2 relative L3. There is mild/moderate lumbar levoscoliosis centered about L2-3. Conus terminates at L1-2. There is variable moderate degenerative disc disease L2-3 and L3-4 and to lesser degree at L1-2, L4-5, and L5-S1. There is no significant marrow edema. T12-L1: There is mild facet hypertrophic change and buckling of the ligamentum flavum. Spinal canal and left neural foramen are adequate, minimal posterior narrowing of the right neural foramen. L1-2: There is mild buckling of the ligamentum flavum and mild to moderate facet degenerative change greater on the right. The is mild posterior narrowing of the right neural foramen, left neural foramen adequate. Spinal canal is adequate. L2-L3: There is mild to moderate facet degenerative change greater on the right. There is minimal buckling of the ligamentum flavum. There is minimal protrusion eccentric to the right lateral recess somewhat greater than previously, mild narrowing of the far right lateral recess. There is moderate narrowing of the right neural foramen mostly from posteriorly by facet, left neural foramen adequate. L3-L4: There is mild to moderate facet degenerative change greater on the right. There is minimal buckling of the ligamentum flavum. There is mild narrowing of the far right lateral recess as seen previously. There is mild left and moderate to severe right neural foramina compromise as seen previously. L4-L5: There is moderate facet degenerative change greater on the left. There is mild buckling of the ligament flavum. There is partial uncovering of the posterior aspect of the disc due to spondylolisthesis. There is mild left and mild to moderate right neural foramina compromise. There is again moderate to severe right and mild to moderate left lateral recess stenosis, mild narrowing of the central canal greater in the transverse dimension. L5-S1: There is moderate left facet degenerative change. There is mild buckling of the ligamentum flavum. There is very shallow posterior bulge/protrusion in the left lateral recess. Spinal canal is overall adequate. There is protrusion eccentric to the inferior left neural foramen overall greater than previously with contact exiting left L5 nerve root, [id number] narrowing of the left neural foramen. Right neural foramen is adequate. Impression: 1. There is neural foramina compromise as stated greatest on the right at L3-4 and L2-3, to a somewhat lesser degree on the right at L4-5, and on the left at L5-S1 with protrusion contacting the exiting left L5 nerve root at this level. 2. There is lumbar levoscoliosis. There is grade 1 anterior spondylolisthesis L4-5. 3. There is lateral recess stenosis as stated most notable right greater than left at L4-5. 4. There is multilevel moderate lumbar degenerative disc disease. Electronically signed by: Bhavin López MD (01/07/2017 2:03 PM) [facility]
== END | disposition home or self-care (01) ==
LOC: KCIC MRI 13:01
PROVIDERS: ATTEND Anesthesiology
DX: M51.16 Intervertebral disc disorders with radiculopathy, lumbar region (principal); M79.1 Myalgia; Z90.12 Acquired absence of left breast and nipple; F41.9 Anxiety disorder, unspecified; Z82.49 Family history of ischemic heart disease and other diseases of the circulatory system; K21.9 Gastro-esophageal reflux disease without esophagitis; Z79.01 Long term (current) use of anticoagulants; F17.200 Nicotine dependence, unspecified, uncomplicated; Z98.890 Other specified postprocedural states; Z85.3 Personal history of malignant neoplasm of breast; Z85.828 Personal history of other malignant neoplasm of skin; Z87.01 Personal history of pneumonia (recurrent); Z98.51 Tubal ligation status; M16.12 Unilateral primary osteoarthritis, left hip; I48.91 Unspecified atrial fibrillation; Z88.6 Allergy status to analgesic agent; Z88.1 Allergy status to other antibiotic agents; Z88.0 Allergy status to penicillin; Z88.8 Allergy status to other drugs, medicaments and biological substances; E03.9 Hypothyroidism, unspecified; H91.90 Unspecified hearing loss, unspecified ear
CPT/HCPCS: 72148

== ENCOUNTER → 2017-01-20 | Outpatient (CLI) | payer MEDICARE, BC ==
[~2017-01-20] MED LIST changes: +IOHEXOL 180 MG/ML 10 ML VIAL. ONE; +methylPREDNISolone ACETATE 40 MG/ML VIAL. ONE; +methylPREDNISolone ACETATE 80 MG/ML VIAL. ONE
--- NOTE | 2017-01-20 17:01 | PAIN ---
DATE OF SERVICE: 01/20/2017 DIAGNOSES: 1. Cervical radiculopathy with cervical degenerative disease and cervical spondylosis. 2. Lumbar radiculopathy with lumbar degenerative disk disease and low back pain. 3. Left greater trochanteric bursitis. 4. Myofascial pain. HISTORY OF PRESENT ILLNESS: The patient is a 76-year-old female who returns for followup status post previous lumbar epidural steroid injection and trigger point injections with very good results. The patient reports she is doing quite well. She is also using Lidoderm patch, which is doing very well for her back pain as well as the left leg pain, but reports the pain is returning now in the low back, radiating to the left posterior gluteus, posterior lateral thigh, lateral anterior thigh and posterior lower leg. We did do an MRI scan, which we reviewed with she and her today, showing some neuroforaminal compromise on the right at L3-L4 and L2-L3 and somewhat lesser degree on the right at L4-L5 and on the left at L5-S1 with protrusion contacting the exiting left L5 nerve roots. The patient reports still significant pain in the left low back, left lower extremity, described as radiating, becoming more constant. It is a 9 on a scale of 10 at its worst, 8 on average and a 6 at its least, and is a 7 today. The patient reports no new motor or sensory deficits, however. No new bowel or bladder incontinence, but it does awaken her from sleep occasionally, but only about every 8 hours if she lays on her left side, and she can usually apply some heat, reposition and get back to sleep. PHYSICAL EXAMINATION: VITAL SIGNS: Today, the patient's blood pressure 138/81, pulse 67, respirations are 18, temperature 97.8 degrees Fahrenheit, height is 5 feet 4 inches, weighs 189 pounds. GENERAL: The patient is awake, alert, oriented, appropriate, very pleasant demeanor. HEENT: Head shows normocephalic, atraumatic. Extraocular muscles are intact and symmetrical. Oral cavity: Mucous membranes moist and pink. Dentition is intact. NECK: Shows anterior throat supple without palpable lymphadenopathy noted. Swallow reflex is symmetrical. CHEST: Normal on inspection. Breath sounds are clear to auscultation bilaterally. HEART: Shows S1 and S2 clear. No murmurs auscultated. ABDOMEN: Soft, nontender, nondistended. No palpable organomegaly. No rebound or guarding demonstrated. BACK: Shows spine grossly in the midline. Slight exaggeration of thoracic kyphosis, mild flattening of lumbar lordotic curvature is noted. Lumbar paraspinous muscle shows symmetrical with inspection, on palpation shows some mild tenderness, but only diffusely bilaterally without significant radiation or trigger points. EXTREMITIES: The patient's lower extremities show deep tendon reflexes at 1+ in the patellar and tendo calcaneus tendons are symmetrical. Motor exam is strong with dorsiflexion, extension, about 4 on a scale of 5, but equal and symmetrical bilaterally. Peripheral pulses are 1+. No peripheral edema is noted. Options were discussed with the patient. The patient's old chart was reviewed as her current medication regimen updated. Current review of systems updated today as well. We will proceed with a second in the series of lumbar epidural steroid injection with fluoroscopic guidance. Risks were again discussed including, but not limited to bleeding, infection, possibility of epidural hematoma, subsequent neurologic compromise, dural puncture headaches, spinal cord and/or nerve damage, side effects of steroid medication and poor results regarding pain control. The patient understands and wished to proceed. The patient will return to clinic in approximately 2 weeks for followup, was counseled on return appointment, activity level and side effects to be aware of. DIAGNOSES: Lumbar radiculopathy with lumbar degenerative disk disease and lumbar spinal stenosis. PROCEDURE: Lumbar epidural steroid injection, translaminar approach at L4-L5 level using C-arm fluoroscopic guidance under sterile prep and drape using local anesthetic. MEDICATION INJECTED: A total of 120 mg of Depo-Medrol plus 10 mL of preservative-free normal saline and 2 mL of Isovue for contrast. CONDITION AT DISCHARGE: Stable. The patient tolerated the procedure well, had no complications. JERRELL JAY MD DR: KRISTA/sunday JOB#: [id number] / [id number]
== END | disposition home or self-care (01) ==
LOC: PNCL 08:39
PROVIDERS: ATTEND Anesthesiology
DX: M51.16 Intervertebral disc disorders with radiculopathy, lumbar region (principal); M48.061 Spinal stenosis, lumbar region without neurogenic claudication; G62.9 Polyneuropathy, unspecified; I48.91 Unspecified atrial fibrillation; J40 Bronchitis, not specified as acute or chronic; G47.30 Sleep apnea, unspecified; K21.9 Gastro-esophageal reflux disease without esophagitis; Z85.3 Personal history of malignant neoplasm of breast; Z90.12 Acquired absence of left breast and nipple; Z98.51 Tubal ligation status; M19.90 Unspecified osteoarthritis, unspecified site; E03.9 Hypothyroidism, unspecified; F41.9 Anxiety disorder, unspecified; F17.210 Nicotine dependence, cigarettes, uncomplicated; C44.81 Basal cell carcinoma of overlapping sites of skin; Z51.11 Encounter for antineoplastic chemotherapy; Z88.2 Allergy status to sulfonamides; Z88.0 Allergy status to penicillin; Z88.9 Allergy status to unspecified drugs, medicaments and biological substances; Z79.811 Long term (current) use of aromatase inhibitors; Z88.1 Allergy status to other antibiotic agents; Z88.6 Allergy status to analgesic agent; Z91.041 Radiographic dye allergy status; Z91.013 Allergy to seafood
CPT/HCPCS: 62323; J1030; J1040

== ENCOUNTER → 2017-03-09 | Outpatient (CLI) | payer MEDICARE, BC ==
[~2017-03-09] MED LIST changes: -ACET325T9 PO; -AZEL137S3 NS; -BACL10TA PO; -CALC600T4 PO; -CHOL20009 PO; -CLOP75TA PO; -CYCL10TA2 PO; -FLEC100T PO; -FLEC50TA PO; -FLUT16SP2 NS; -GLUC1CAP48 PO; -HYDR-2758 PO; -IOHEXOL 180 MG/ML 10 ML VIAL. ONE; -LACT1CAP8 PO; -LEVO75TA PO; -LIDO700A4 TP; -LORA0.5T PO; -LORA10TA3 PO; -LORA1TAB PO; -METO-239 PO; -METO-269 PO; -NAPR220C4 PO; -OMEP10CA PO; -ONDA4TAB7 PO; -PANT20TA2 PO; -POLY17PO29 PO; -RANI150C PO; -SCOP1PAT TD; -SENN8.6C2 PO; -SIME125T PO; -TRAM50TA PO; -[UNRECOGNIZED DRUG - CODE] PO; -lidoderm patch; +methylPREDNISolone ACETATE 40 MG/ML VIAL.; -methylPREDNISolone ACETATE 40 MG/ML VIAL. ONE; +methylPREDNISolone ACETATE 80 MG/ML VIAL.; -methylPREDNISolone ACETATE 80 MG/ML VIAL. ONE
== END | disposition home or self-care (01) ==
LOC: PNCL 09:46
DX: M51.16 Intervertebral disc disorders with radiculopathy, lumbar region (principal); M50.10 Cervical disc disorder with radiculopathy, unspecified cervical region; M47.22 Other spondylosis with radiculopathy, cervical region; I48.91 Unspecified atrial fibrillation; K21.9 Gastro-esophageal reflux disease without esophagitis; E03.9 Hypothyroidism, unspecified; F41.9 Anxiety disorder, unspecified; Z87.440 Personal history of urinary (tract) infections; Z86.69 Personal history of other diseases of the nervous system and sense organs; Z87.01 Personal history of pneumonia (recurrent); Z87.39 Personal history of other diseases of the musculoskeletal system and connective tissue; Z98.51 Tubal ligation status; Z88.6 Allergy status to analgesic agent; Z88.1 Allergy status to other antibiotic agents; Z88.2 Allergy status to sulfonamides
CPT/HCPCS: 62323; J1030; J1040

== ENCOUNTER → 2017-05-06 | Outpatient (CLI) | payer MEDICARE, BC | END | disposition home or self-care (01) | LOC: ECHO 09:03 | DX: I48.91 Unspecified atrial fibrillation (principal); I36.1 Nonrheumatic tricuspid (valve) insufficiency | CPT/HCPCS: 93306 ==

== ENCOUNTER 2017-12-29 22:29 | Emergency (ER) | payer MEDICARE, BC ==
[~2017-12-29] VITALS: Ht 162.6 cm; Wt 86.2 kg
[~2017-12-29 22:29] MED LIST changes: +ACET325T9 PO; +AZEL137S3 NS; +BACL10TA PO; +CALC600T4 PO; +CHOL20009 PO; +CLOP75TA PO; +CYCL10TA2 PO; +FLEC100T PO; +FLEC50TA PO; +FLUT16SP2 NS; +GLUC1CAP48 PO; +HYDR-2758 PO; +LACT1CAP8 PO; +LEVO75TA PO; +LIDO700A4 TP; +LORA0.5T PO; +LORA10TA3 PO; +LORA1TAB PO; +METO-239 PO; +METO-269 PO; +NAPR220C4 PO; +OMEP10CA PO; +ONDA4TAB7 PO; +PANT20TA2 PO; +POLY17PO29 PO; +RANI150C PO; +SCOP1PAT11 TD; +SENN8.6C2 PO; +SIME125T PO; +TRAM50TA PO; +[UNRECOGNIZED DRUG - CODE] PO; +lidoderm patch; -methylPREDNISolone ACETATE 40 MG/ML VIAL.; -methylPREDNISolone ACETATE 80 MG/ML VIAL.
[2017-12-29] MEDS ORDERED: OXYMETAZOLINE 0.05% NASAL SPRAY 30ML BOTTLE. NS ONE (23:00)
[2017-12-29] MEDS ORDERED: ONDANSETRON ODT 4 MG TAB.RAPDIS. PO ONE (23:15)
--- NOTE | 2017-12-29 23:32 | PHYS DOC ---
Past Medical History Past Medical History: A-Fib, Cancer, Hypothyroid Additional Past Medical Histor: breast cancer '09,lymphadema,sinus infection Past Surgical History: Cancer Surgery, Tonsillectomy Additional Past Surgical Histo: left mastectomy, Alcohol Use: None Drug Use: None Adult General Chief Complaint Chief Complaint: NOSEBLEED HPI HPI Patient is a 77 year old female who presents with nosebleed. She underwent sinus surgery at approximately 1:00 this afternoon. Has been having bleeding ever since. Patient is been using oxymetazoline without any significant improvement. Patient came to the emergency department because she felt like the bleeding was not stopping. Patient denies any lightheadedness. Denies any shortness of breath. Reports the blood is draining down the back of her throat. Reports feeling nauseated from this blood draining down the back of her throat. Patient denies any pulsatile bleeding. Patient was on a NOAC itchy stopped 2 days ago to be able to undergo surgery.[] Review of Systems Review of Systems Constitutional: Denies fever or chills [] Eyes: Denies change in visual acuity, redness, or eye pain [] HENT: See history of present illness[] Respiratory: Denies cough or shortness of breath [] Cardiovascular: No chest pain or palpitation[] GI: Denies abdominal pain, nausea, vomiting, bloody stools or diarrhea [] : Denies dysuria or hematuria [] Musculoskeletal: Denies back pain or joint pain [] Integument: Denies rash or skin lesions [] Neurologic: Denies headache, focal weakness or sensory changes [] Endocrine: Denies polyuria or polydipsia [] All other systems were reviewed and found to be within normal limits, except as documented in this note. Current Medications Current Medications Current Medications Medications (Trade) Dose Ordered Sig/Brock Start Time Stop Time Status Last Admin Dose Admin Ondansetron HCl (Zofran Odt) 4 mg 1X ONCE 12/29/17 23:15 12/29/17 23:16 UNV Oxymetazoline HCl (Afrin) 4 spray 1X ONCE 12/29/17 23:00 12/29/17 23:01 DC 12/29/17 22:54 4 SPRAY Allergies Allergies Allergies Coded Allergies Type Severity Reaction Last Updated Verified azithromycin Allergy Severe Anaphylaxis 08/11/16 Yes diphenhydramine Allergy Severe Anaphylaxis 08/11/16 Yes erythromycin base Allergy Severe Anaphylaxis 08/11/16 Yes iodine Allergy Severe 08/11/16 Yes nitrofurantoin Allergy Severe Anaphylaxis 08/11/16 Yes sodium phosphate Allergy Severe Anaphylaxis 08/11/16 Yes vancomycin Allergy Severe Anaphylaxis 08/11/16 Yes Sulfa (Sulfonamide Antibiotics) Allergy Intermediate oral sores 08/13/16 Yes alendronate sodium Allergy Intermediate vision changes 08/11/16 Yes anastrozole Allergy Intermediate Unknown 08/11/16 Yes cefdinir Allergy Intermediate Diarrhea 08/11/16 Yes clarithromycin Allergy Intermediate Unknown 08/11/16 Yes doxepin Allergy Intermediate dizzyness 08/11/16 Yes ibuprofen Allergy Intermediate sores 08/11/16 Yes levofloxacin Allergy Intermediate Unknown 08/11/16 Yes moxifloxacin Allergy Intermediate Unknown 08/11/16 Yes naproxen Allergy Intermediate sores 08/11/16 Yes strawberry Allergy Intermediate Unknown 08/11/16 Yes tizanidine Allergy Intermediate heart palpitaions 01/10/15 Yes venom-wasp Allergy Intermediate Unknown 08/11/16 Yes metoclopramide Allergy Mild ITCHY 08/11/16 Yes cyclobenzaprine Adverse Reaction Severe felt bed moving, felt like someone was in bed 08/13/16 Yes letrozole Adverse Reaction Intermediate 08/11/16 Yes morphine Adverse Reaction Intermediate vomiting 08/13/16 Yes Physical Exam Physical Exam Constitutional: Well developed, well nourished, no acute distress, non-toxic appearance. [] HENT: Normocephalic, atraumatic, bilateral external ears normal, oropharynx moist with blood tracking down the posterior oropharynx, no oral exudates, bilateral nares with mild blood in them. No active hemorrhaging noted. No Septal hematoma. [] Eyes: PERRLA, EOMI, conjunctiva normal, no discharge. [] Neck: Normal range of motion, no tenderness, supple, no stridor. [] Cardiovascular:Heart rate regular rhythm, no murmur [] Lungs & Thorax: Bilateral breath sounds clear to auscultation [] Abdomen: Evaluated. [] Skin: Warm, dry, no erythema, no rash. No petechiae no ulcers [] Back: No tenderness, no CVA tenderness. [] Extremities: No tenderness, no cyanosis, no clubbing, ROM intact, no edema. [] Neurologic: Alert and oriented X 3, normal motor function, normal sensory function, no focal deficits noted. [] Psychologic: Affect normal, judgement normal, mood normal. [] Current Patient Data Vital Signs Vital Signs Date Time Temp Pulse Resp B/P (MAP) Pulse Ox O2 Delivery O2 Flow Rate FiO2 12/29/17 22:36 97.9 71 18 210/93 (132) 96 Room Air 97.9 EKG EKG [] Radiology/Procedures Radiology/Procedures [] Course & Med Decision Making Course & Med Decision Making Pertinent Labs and Imaging studies reviewed. (See chart for details) ED course: Patient arrived, placed in bed, in tolerate exam well. Patient had 4 sprays of oxymetazoline instilled in bilateral nares with pressure held for approximately 10 minutes. On reevaluation no active bleeding was noted. Patient had the pressure removed for an additional 10 minutes. Then had her device from postop reapplied. Patient was additionally given Zofran because of the nausea from the blood trickling down her oropharynx. She tolerated the medicine well. There were no complications. She reported improvement in her nausea symptoms. Patient and were talked to about the plan and need to return if bleeding resumed without being controlled by the oxymetazoline. Both voiced understanding. All questions were answered. Decision making: There does not appear to be a significant anemia, no bleeding diathesis noted. No uncontrolled bleeding noted no posterior epistaxis.[] Dragon Disclaimer Dragon Disclaimer This electronic medical record was generated, in whole or in part, using a voice recognition dictation system. Departure Departure Impression: Primary Impression: Epistaxis Disposition: HOME, SELF-CARE Condition: GOOD Referrals: CLINTON PAYNE MD (PCP) Patient Instructions: Nosebleed Additional Instructions: Follow-up with your regular doctor. Call the ENT surgeon tomorrow and let them know that she were in the ER tonight. If you have recurrence of the nosebleed, first blow all this not an clot out gently. Then used 4 sprays of the Afrin in both nares. Then hold pressure for 10-20 minutes. If there is continued bleeding continue holding pressure and return to the emergency department. Return to the ER if continued bleeding or any other concerns. ALEXI SALAZAR DO Dec 29, 2017 23:32
[2017-12-29 23:34] VITALS: BP 139/63
== END 2017-12-29 23:38 | disposition home or self-care (01) ==
LOC: ER 22:29
DX: R04.0 Epistaxis (principal); E03.9 Hypothyroidism, unspecified; I48.91 Unspecified atrial fibrillation; Z88.1 Allergy status to other antibiotic agents; Z88.5 Allergy status to narcotic agent; Z88.2 Allergy status to sulfonamides; Z91.041 Radiographic dye allergy status; Z91.030 Bee allergy status; Z88.8 Allergy status to other drugs, medicaments and biological substances; Z91.018 Allergy to other foods
CPT/HCPCS: 99283; Q0162

== ENCOUNTER 2018-03-29 06:59 | Outpatient (CLI) | payer MEDICARE, BC ==
[~2018-03-29] VITALS: Ht 162.6 cm; Wt 85.3 kg
[~2018-03-29 06:59] MED LIST changes: -HYDR-2758 PO; +HYDR-2761 PO; +[UNRECOGNIZED DRUG - CODE] PO; -[UNRECOGNIZED DRUG - CODE] PO
[2018-03-29] MEDS ORDERED: MUPI22OI2 TP (07:32)
[2018-03-29] MEDS ORDERED: VIT1CAPS12 PO (07:32)
[2018-03-29 07:52] LABS: BASO % 1 % (0-3); EOS # 0.2 x10^3/uL (0.0-0.7); EOS % 4 % (0-3); HEMATOCRIT 40.2 % (36.0-47.0); HEMOGLOBIN 13.5 g/dL (12.0-15.5); LYMPH # 1.1 x10^3/uL (1.0-4.8); LYMPH % 25 % (24-48); MEAN CORPUSCULAR HEMOGLOBIN 32 pg (25-35); MEAN CORPUSCULAR HGB CONC 34 g/dL (31-37); MEAN CORPUSCULAR VOLUME 95 fL (79-100); MONO # 0.5 x10^3/uL (0.0-1.1); MONO % 11 % (0-9); NEUT # 2.7 x10^3uL (1.8-7.7); NEUT % 59 % (31-73); PLATELET COUNT 197 x10^3/uL (140-400); RED BLOOD COUNT 4.24 x10^6/uL (3.50-5.40); RED CELL DISTRIBUTION WIDTH 13.8 % (11.5-14.5); WHITE BLOOD COUNT 4.6 x10^3/uL (4.0-11.0)
[2018-03-29 07:56] VITALS: BP 126/72
[2018-03-29 08:04] LABS: PROTHROMBIN TIME PATIENT 14.3 SEC (11.7-14.0)
[2018-03-29] MEDS ORDERED: LIDOCAINE WITH 8.4% SOD BICARB 3 ML DISP.SYRIN. ONE (08:33)
[2018-03-29 08:39] VITALS: BP 162/72
[2018-03-29] MEDS ORDERED: LIDOCAINE WITH 8.4% SOD BICARB 3 ML DISP.SYRIN. IJ ONE (08:45)
--- NOTE | 2018-03-29 09:37 | NUR ---
Discharge Note: ULI MILLER Discharge instructions and discharge home medications reviewed with Patient and a copy given. All questions have been answered and understanding verbalized. The following instructions and handouts were given: Pt was instructed to continue home medications as directed. Discontinued lines and drains: peripheral iv was discontinued with no complications. Catheter tip was intact. Patient discharged to home with self care via ambulation. Pt was accompanied by spouse. Pt did not receive sedation.
--- NOTE | 2018-05-16 15:10 | RAD ---
Limited ultrasound evaluation of the left neck March 29, 2018 Discussion: Limited evaluation of the left neck demonstrates no pathologically enlarged lymphadenopathy. No other focal lesions are identified. No biopsy was performed.
== END 2018-03-29 09:00 | disposition home or self-care (01) ==
LOC: INTRAD 06:59
PROVIDERS: ATTEND Nurse Practitioner Family
DX: R59.0 Localized enlarged lymph nodes (principal); Z88.2 Allergy status to sulfonamides; Z88.1 Allergy status to other antibiotic agents; Z88.5 Allergy status to narcotic agent; Z88.8 Allergy status to other drugs, medicaments and biological substances; Z79.01 Long term (current) use of anticoagulants; Z79.2 Long term (current) use of antibiotics; Z79.899 Other long term (current) drug therapy
CPT/HCPCS: 36415; 76536; 85025; 85610

== ENCOUNTER → 2018-05-04 | Outpatient (CLI) | payer MEDICARE, BC ==
[~2018-05-04] MED LIST changes: +MUPI22OI2 TP; +VIT1CAPS12 PO
--- NOTE | 2018-05-04 11:49 | CARD ---
MR#: [id number] Date of Study: 05/04/2018 Ordering Physician: HILLARY CRISTINA, Referring Physician: HILLARY CRISTINA, Tech: Niru Stuart [facility] APPROVED REPORT EXAM: Two-dimensional and M-mode echocardiogram with Doppler and color Doppler. Other Information Quality : Technically LimitedHR: 73bpm Rhythm : NSRTechnically limited study due to left breast surgery. INDICATION Dyspnea 2D DIMENSIONS RVDd3.9 (2.9-3.5cm)Left Atrium(2D)3.4 (1.6-4.0cm) IVSd0.9 (0.7-1.1cm)Aortic Root(2D)2.8 (2.0-3.7cm) LVDd4.5 (3.9-5.9cm)LVOT Diameter1.8 (1.8-2.4cm) PWd0.7 (0.7-1.1cm)LVDs3.1 (2.5-4.0cm) FS (%) 30.9 %SV53.4 ml LVEF(%)58.8 (>50%) Aortic Valve AoV Peak Crow.88.6cm/sAoV VTI18.9cm AO Peak GR.3.1mmHgLVOT Peak Crow.58.6cm/s AO Mean GR.1mmHgAVA (VMAX)1.72cm2 COREY (VTI)1.80cm2 Mitral Valve MV E Cxgggeyl108.9cm/sMV E Peak Gr.7mmHg MV DECEL [id number] A Sqgdwwjg26.2cm/s MV E Mean Gr.3mmHgE/A Ratio5.2 Tricuspid Valve TR P. Sdberdbs285ug/sRAP [id number] TR Peak Gr.12aiNySUEW76lvEb LEFT VENTRICLE The left ventricle is normal size. There is normal left ventricular wall thickness. The left ventricu lar systolic function is normal. The Ejection Fraction is 55-60%. There is normal LV segmental wall m otion. RIGHT VENTRICLE The right ventricle is mildly dilated. There is normal right ventricular wall thickness. Systolic fun ction is borderline reduced. ATRIA The left atrium size is normal. The right atrium is mildly dilated. The interatrial septum is intact with no evidence for an atrial septal defect or patent foramen ovale as noted on 2-D or Doppler imagi ng. AORTIC VALVE The aortic valve is thickened but opens well. The aortic valve is trileaflet. Doppler and Color Flow revealed no significant aortic regurgitation. There is no significant aortic valvular stenosis. MITRAL VALVE The mitral valve is normal in structure and function. There is no evidence of mitral valve prolapse. There is no mitral valve stenosis. Doppler and Color-flow revealed mild mitral regurgitation. TRICUSPID VALVE The tricuspid valve is normal in structure and function. Doppler and Color Flow revealed mild tricusp id regurgitation. There is mild pulmonary hypertension. The PA pressure was estimated at 35 mmHg. The re is no tricuspid valve prolapse or vegetation. There is no tricuspid valve stenosis. PULMONIC VALVE The pulmonic valve is not well visualized. GREAT VESSELS The aortic root is normal in size. The ascending aorta is normal in size. The IVC is normal in size a nd collapses >50% with inspiration. PERICARDIAL EFFUSION There is no evidence of significant pericardial effusion. Critical Notification Critical Value: No <Conclusion> The left ventricular systolic function is normal. The Ejection Fraction is 55-60%. There is normal LV segmental wall motion. Mild mitral regurgitation. Mild tricuspid regurgitation. There is mild pulmonary hypertension. The PA pressure was estimated at 35 mmHg. There is no evidence of significant pericardial effusion. Signed by : Scott Pereyra, Electronically Approved : 05/04/2018 11:48:52
== END | disposition home or self-care (01) ==
LOC: ECHO 08:49
PROVIDERS: ATTEND Internal Medicine Cardiovascular Disease
DX: I08.1 Rheumatic disorders of both mitral and tricuspid valves (principal); I27.20 Pulmonary hypertension, unspecified
CPT/HCPCS: 93306

== ENCOUNTER 2018-09-11 14:54 | Emergency (ER) | payer MEDICARE, BC ==
[~2018-09-11] VITALS: Ht 162.6 cm; Wt 83.9 kg
--- NOTE | 2018-09-11 15:33 | PHYS DOC ---
Past Medical History Past Medical History: A-Fib, Cancer, Hypothyroid Additional Past Medical Histor: breast cancer '09,lymphadema,sinus infection Past Surgical History: Cancer Surgery, Tonsillectomy Additional Past Surgical Histo: left mastectomy, Alcohol Use: None Drug Use: None Adult General Chief Complaint Chief Complaint: Palpitations HPI HPI Patient is a 78-year-old female, with a past history of paroxysmal atrial fibrillation, currently on Plavix, as well as other medical problems, who presents to the emergency department for evaluation. She states that for the several days, she has been having intermittent episodes of palpitations, where she feels like her heart is pounding and beating irregularly. She states she called the on-call receiving weigher on Tuesday, but did not go to the emergency department as she was recommended. She states that at 10:00 this morning, she began experiencing palpitations again, and they persisted until just prior to presenting to the emergency department. She took 1/2 mg of Ativan, as well as 25 mg of metoprolol, which resulted in improvement in her symptoms. She states that she has had some increasing shortness of breath when she has had palpitations. She has been checking her blood pressure and heart rate regularly, and although she has been a little bit hypertensive, with blood pressures generally in the 140s over 100 range, her heart rate has been below 110 the entire time, most of the time in the 80s or 90s. She is currently asymptomatic and feels better at this time. She does have an implantable loop recorder in place. She does have thyroid problems, and states her PCP checked her thyroid function last , but she did not get any results yet. There are no alleviating, or exacerbating factors to her symptoms, except as noted above. Tevin has NOT had any chest pain throughout these episodes, and has no Hx of CAD. Review of Systems Review of Systems Constitutional: Denies fever or chills [] Eyes: Denies change in visual acuity, redness, or eye pain [] HENT: Denies nasal congestion or sore throat [] Respiratory: Denies cough or pleuritic pain [] Cardiovascular: No additional information not addressed in HPI [] GI: Denies abdominal pain, nausea, vomiting, bloody stools or diarrhea [] : Denies dysuria or hematuria [] Musculoskeletal: Denies back pain or joint pain [] Integument: Denies rash or skin lesions [] Neurologic: Denies headache, focal weakness or sensory changes [] Endocrine: Denies polyuria or polydipsia [] All other systems were reviewed and found to be within normal limits, except as documented in this note. Allergies Allergies Allergies Coded Allergies Type Severity Reaction Last Updated Verified azithromycin Allergy Severe Anaphylaxis 08/11/16 Yes diphenhydramine Allergy Severe Anaphylaxis 08/11/16 Yes erythromycin base Allergy Severe Anaphylaxis 08/11/16 Yes iodine Allergy Severe 08/11/16 Yes nitrofurantoin Allergy Severe Anaphylaxis 08/11/16 Yes sodium phosphate Allergy Severe Anaphylaxis 08/11/16 Yes vancomycin Allergy Severe Anaphylaxis 08/11/16 Yes Sulfa (Sulfonamide Antibiotics) Allergy Intermediate oral sores 08/13/16 Yes alendronate sodium Allergy Intermediate vision changes 08/11/16 Yes anastrozole Allergy Intermediate Unknown 08/11/16 Yes cefdinir Allergy Intermediate Diarrhea 08/11/16 Yes clarithromycin Allergy Intermediate Unknown 08/11/16 Yes doxepin Allergy Intermediate dizzyness 08/11/16 Yes ibuprofen Allergy Intermediate sores 08/11/16 Yes levofloxacin Allergy Intermediate Unknown 08/11/16 Yes moxifloxacin Allergy Intermediate Unknown 08/11/16 Yes naproxen Allergy Intermediate sores 08/11/16 Yes strawberry Allergy Intermediate Unknown 08/11/16 Yes tizanidine Allergy Intermediate heart palpitaions 01/10/15 Yes venom-wasp Allergy Intermediate Unknown 08/11/16 Yes metoclopramide Allergy Mild ITCHY 08/11/16 Yes cyclobenzaprine Adverse Reaction Severe felt bed moving, felt like someone was in bed 08/13/16 Yes letrozole Adverse Reaction Intermediate 08/11/16 Yes morphine Adverse Reaction Intermediate vomiting 08/13/16 Yes Physical Exam Physical Exam PHYSICAL EXAM: CONSTITUTIONAL: Well developed, well nourished HEAD: normocephalic, atraumatic EENT: PERRL, EOMI. Conjunctivae normal color, sclerae non-icteric; moist mucous membranes. NECK: Supple, non-tender; no meningismus. LUNGS: Lungs CTA, breathing even and unlabored. Normal air movement. HEART: Regular rate and rhythm, no murmur CHEST: No deformity; non-tender ABDOMEN: The abdomen is soft, and non-tender, no masses or bruits. EXTREM: Normal ROM; no deformity, no calf tenderness. Normal pulses palpable in all extremities. There is mild bilateral pedal edema. SKIN: No rash; no diaphoresis NEURO: Alert; normal speech and cognition; CN's grossly intact; strength grossly intact without focal deficit. BACK: No CVA TTP. PSYCHIATRIC: The patient exhibits a moderately anxious affect. Current Patient Data Vital Signs Vital Signs Date Time Temp Pulse Resp B/P (MAP) Pulse Ox O2 Delivery O2 Flow Rate FiO2 09/11/18 15:35 98.2 74 20 183/79 (113) 98 Room Air 98.2 Lab Values Laboratory Tests Test 09/11/18 15:06 White Blood Count 6.5 x10^3/uL (4.0-11.0) Red Blood Count 3.84 x10^6/uL (3.50-5.40) Hemoglobin 12.3 g/dL (12.0-15.5) Hematocrit 36.5 % (36.0-47.0) Mean Corpuscular Volume 95 fL (79-100) Mean Corpuscular Hemoglobin 32 pg (25-35) Mean Corpuscular Hemoglobin Concent 34 g/dL (31-37) Red Cell Distribution Width 13.3 % (11.5-14.5) Platelet Count 188 x10^3/uL (140-400) Neutrophils (%) (Auto) 65 % (31-73) Lymphocytes (%) (Auto) 23 % (24-48) L Monocytes (%) (Auto) 10 % (0-9) H Eosinophils (%) (Auto) 2 % (0-3) Basophils (%) (Auto) 1 % (0-3) Neutrophils # (Auto) 4.3 x10^3/uL (1.8-7.7) Lymphocytes # (Auto) 1.5 x10^3/uL (1.0-4.8) Monocytes # (Auto) 0.7 x10^3/uL (0.0-1.1) Eosinophils # (Auto) 0.1 x10^3/uL (0.0-0.7) Basophils # (Auto) 0.0 x10^3/uL (0.0-0.2) Sodium Level 132 mmol/L (136-145) L Potassium Level 4.0 mmol/L (3.5-5.1) Chloride Level 96 mmol/L (98-107) L Carbon Dioxide Level 26 mmol/L (21-32) Anion Gap 10 (6-14) Blood Urea Nitrogen 10 mg/dL (7-20) Creatinine 0.9 mg/dL (0.6-1.0) Estimated GFR (Cockcroft-Gault) 60.4 BUN/Creatinine Ratio 11 (6-20) Glucose Level 121 mg/dL (70-99) H Calcium Level 8.9 mg/dL (8.5-10.1) Magnesium Level 1.8 mg/dL (1.8-2.4) Total Bilirubin 0.5 mg/dL (0.2-1.0) Aspartate Amino Transferase (AST) 17 U/L (15-37) Alanine Aminotransferase (ALT) 21 U/L (14-59) Alkaline Phosphatase 73 U/L (46-116) Troponin I Quantitative < 0.017 ng/mL (0.000-0.055) UX-Hdj-V-Type Natriuretic Peptide 776 pg/mL (0-449) H Total Protein 7.1 g/dL (6.4-8.2) Albumin 3.8 g/dL (3.4-5.0) Albumin/Globulin Ratio 1.2 (1.0-1.7) Laboratory Tests 09/11/18 15:06 Laboratory Tests 09/11/18 15:06 EKG EKG probable sinus rhythm with first-degree AV block, at a rate of 77 beats for minute leftward axis, normal intervals, there are no acute ischemic ST/T changes. Radiology/Procedures Radiology/Procedures [PROCEDURE: PORTABLE CHEST 1V Examination: PORTABLE CHEST 1V History: Palpitations, left-sided chest pressure, mastectomy Comparison/Correlation: 12/17/2015 chest x-ray exam Findings: Portable upright frontal view of the chest was obtained. Loop recorder device is present. Heart size and pulmonary vascular are normal. No infiltrate or pleural effusion. Scoliosis noted. No pneumothorax. Impression: No active disease. ] Course & Med Decision Making Course & Med Decision Making Pertinent Labs and Imaging studies reviewed. (See chart for details) [] 4:30 PM: The patient's condition remains stable. She remained asymptomatic at this time. I contacted the [employer] insurance representative, as the patient has been able to remotely transmit her events, and the patient has had primarily normal sinus rhythm, with an AV block, without any noted A. fib, although there are some periods of irregular RR intervals, but the device did not label it A. fib according to the rep. I discussed test results in detail with the patient, the need for close follow-up with her receiving weigher, and return precautions. Due to the lack of documented atrial fibrillation at this time, I will not start the patient on additional anticoagulation. Dragon Disclaimer Dragon Disclaimer This electronic medical record was generated, in whole or in part, using a voice recognition dictation system. Departure Departure Impression: Primary Impression: Palpitations Disposition: 01 HOME, SELF-CARE Condition: STABLE Referrals: CLINTON PAYNE MD (PCP) Patient Instructions: Anxiety and Panic Attacks, Palpitations Additional Instructions: Follow-up with your receiving weigher tomorrow morning for further evaluation and management. THUY PARKER MD Sep 11, 2018 15:33
[2018-09-11 15:44] LABS: BASO % 1 % (0-3); EOS # 0.1 x10^3/uL (0.0-0.7); EOS % 2 % (0-3); HEMATOCRIT 36.5 % (36.0-47.0); HEMOGLOBIN 12.3 g/dL (12.0-15.5); LYMPH # 1.5 x10^3/uL (1.0-4.8); LYMPH % 23 % (24-48); MEAN CORPUSCULAR HEMOGLOBIN 32 pg (25-35); MEAN CORPUSCULAR HGB CONC 34 g/dL (31-37); MEAN CORPUSCULAR VOLUME 95 fL (79-100); MONO # 0.7 x10^3/uL (0.0-1.1); MONO % 10 % (0-9); NEUT # 4.3 x10^3/uL (1.8-7.7); NEUT % 65 % (31-73); PLATELET COUNT 188 x10^3/uL (140-400); RED BLOOD COUNT 3.84 x10^6/uL (3.50-5.40); RED CELL DISTRIBUTION WIDTH 13.3 % (11.5-14.5); WHITE BLOOD COUNT 6.5 x10^3/uL (4.0-11.0)
[2018-09-11 15:55] LABS: CALCIUM 8.9 mg/dL (8.5-10.1); CREATININE 0.9 mg/dL (0.6-1.0); GFR 60.4
--- NOTE | 2018-09-11 15:58 | RAD ---
Examination: PORTABLE CHEST 1V History: Palpitations, left-sided chest pressure, mastectomy Comparison/Correlation: 12/17/2015 chest x-ray exam Findings: Portable upright frontal view of the chest was obtained. Loop recorder device is present. Heart size and pulmonary vascular are normal. No infiltrate or pleural effusion. Scoliosis noted. No pneumothorax. Impression: No active disease. Electronically signed by: Rodney De La Garza MD (09/11/2018 3:55 PM) [id number]
--- NOTE | 2018-09-11 15:59 | EKG ---
[facility] [address] [place] [address] Test Date: 2018-09-11 Test Time: 15:04:56 Pat Name: ULI MILLER Department: Room: Gender: F Turf Grower: : 1940 Requested By: THUY PARKER Order Number: [id number] Reading MD: Measurements Intervals Karval Rate: 77 P: CT: QRS: -19 QRSD: 88 T: 38 QT: 362 QTc: 411 Interpretive Statements IRREGULAR RHYTHM, NO P-WAVE FOUND LEFTWARD AXIS NO SPECIFIC ECG ABNORMALITIES RI6.01 Unconfirmed report No previous ECG available for comparison
[2018-09-11 16:00] LABS: ALBUMIN 3.8 g/dL (3.4-5.0); ALBUMIN/GLOBULIN RATIO 1.2 (1.0-1.7); MAGNESIUM 1.8 mg/dL (1.8-2.4); TOTAL BILIRUBIN 0.5 mg/dL (0.2-1.0); TOTAL PROTEIN 7.1 g/dL (6.4-8.2)
[2018-09-11 16:30] VITALS: BP 136/62
== END 2018-09-11 17:01 | disposition home or self-care (01) ==
LOC: ER 14:54
DX: R00.2 Palpitations (principal); R07.89 Other chest pain; I48.0 Paroxysmal atrial fibrillation; E03.9 Hypothyroidism, unspecified; Z88.1 Allergy status to other antibiotic agents; Z88.5 Allergy status to narcotic agent; Z88.2 Allergy status to sulfonamides; Z88.6 Allergy status to analgesic agent; Z88.8 Allergy status to other drugs, medicaments and biological substances; Z91.038 Other insect allergy status; Z91.018 Allergy to other foods
CPT/HCPCS: 36415; 71045; 80053; 83735; 83880; 84484; 85025; 93005; 99285-25

== ENCOUNTER → 2018-12-27 | Outpatient (CLI) | payer MEDICARE, BC ==
--- NOTE | 2018-12-28 10:17 | SLEEP ---
DATE OF STUDY: 12/27/2018 SLEEP STUDY ATTENDING PHYSICIAN: Clinton Schilling MD The patient is a 78-year-old who weighs 185 pounds with a BMI of 34. The patient's Coloma score was 6. The patient underwent split night study performed at [facility]. During the night study, the patient spent 425 minutes in bed and slept for 263 minutes with a low sleep efficiency of 62%. Sleep latency was 51 minutes with a REM latency of 313 minutes. Sleep architecture showed increased stage 1 and stage 2 sleep along with increased slow wave and reduced REM sleep. During the initial diagnostic portion of the study, the patient slept for 130 minutes. During that time, there were 10 obstructive apneas, 3 mixed apneas, no central apneas and 105 hypopneas. The patient's apnea-hypopnea index was 55 per hour with a supine index of 55 per hour. REM sleep was not seen during the diagnostic portion. EKG monitoring revealed no arrhythmias. Average heart rate was 75 beats per minute. No significant PLMs seen. Nocturnal oximetry study during the diagnostic portion revealed a mean saturation of 97% with the lowest of 67%. A 33% of the time in oxygen saturation remained between 80% and 89%. The patient met the criteria for CPAP initiation. It was started at 7 cm water and titrated up to 13 cm water. At the final pressure, the patient slept for 94 minutes. The patient had supine sleep throughout along with REM sleep observed. The patient's AHI was reduced to 5 per hour. Due to few treatment emergent central apneas. Oxygen saturation remained above 91%. The patient used small sized nasal pillows. IMPRESSION: 1. Severe sleep apnea-hypopnea syndrome at an AHI of 55 per hour. 2. Nocturnal hypoxia secondary to obstructive sleep apnea, but resolved with CPAP. 3. No clinically significant periodic limb movements. RECOMMENDATIONS: 1. CPAP at 13 cm water completely eliminated the patient's sleep apnea and should be used on a nightly basis. 2. Follow up in 4-6 weeks to assess compliance with CPAP and to document clinical improvement. 3. Weight loss is advised. 4. Avoid SURGICAL TRAINING SPECIALIST depressants. 5. Cautioned regarding driving until symptoms of sleep apnea resolve with the use of CPAP. PIERRE AWAD MD DR: MADHU/sunday JOB#: [id number] / [id number] CLINTON Jasso MD
== END | disposition home or self-care (01) ==
LOC: RT 19:03
PROVIDERS: ATTEND Internal Medicine Critical Care Medicine
DX: G47.33 Obstructive sleep apnea (adult) (pediatric) (principal); R09.02 Hypoxemia
CPT/HCPCS: 95810

== ENCOUNTER 2019-02-23 10:21 | Emergency (ER) | payer MEDICARE, BC ==
[~2019-02-23] VITALS: Ht 162.6 cm; Wt 82.6 kg
[~2019-02-23 10:21] MED LIST changes: +CETI10TA16 PO; +FAMO20TA5 PO; +GUAI5SYR PO; +IPRA0.2S5 IH
--- NOTE | 2019-02-23 12:04 | PHYS DOC ---
Past Medical History Past Medical History: A-Fib, Cancer, Hypothyroid Additional Past Medical Histor: breast cancer '09,lymphadema,sinus infection Past Surgical History: Cancer Surgery, Tonsillectomy Additional Past Surgical Histo: left mastectomy, DISCETOMY Alcohol Use: None Drug Use: None Adult General Chief Complaint Chief Complaint: HEADACHE HPI HPI Patient is a 78 year old female, accompanied by her , who presents to the emergency department with complaints of a pulsating pain in her left buddhist since 5:00 this morning. Patient denies any vision changes, dizziness, numbness, tingling, weakness, neck pain, back pain, nausea, or vomiting. She states she has been having similar headaches intermittently for months now. She currently rates the discomfort a 5 or 6 out of 10 on the pain scale. She denies any alleviating or exacerbating factors. Patient states she was recently admitted to this hospital from February 10 to February 14 for bronchitis and sinusitis. She continues to take the doxycycline that was prescribed for those infections. All other ROS is neg unless otherwise noted in HPI. Review of Systems Review of Systems See Above Current Medications Current Medications Current Medications Medications (Trade) Dose Ordered Sig/Brock Start Time Stop Time Status Last Admin Dose Admin Dexamethasone Sodium Phosphate (Decadron) 10 mg 1X ONCE 02/23/19 12:45 02/23/19 12:46 DC Allergies Allergies Allergies Coded Allergies Type Severity Reaction Last Updated Verified azithromycin Allergy Severe Anaphylaxis 08/11/16 Yes diphenhydramine Allergy Severe Anaphylaxis 08/11/16 Yes erythromycin base Allergy Severe Anaphylaxis 08/11/16 Yes iodine Allergy Severe 08/11/16 Yes nitrofurantoin Allergy Severe Anaphylaxis 08/11/16 Yes sodium phosphate Allergy Severe Anaphylaxis 08/11/16 Yes vancomycin Allergy Severe Anaphylaxis 08/11/16 Yes Sulfa (Sulfonamide Antibiotics) Allergy Intermediate oral sores 08/13/16 Yes anastrozole Allergy Intermediate Unknown 08/11/16 Yes clarithromycin Allergy Intermediate Unknown 08/11/16 Yes levofloxacin Allergy Intermediate Unknown 08/11/16 Yes moxifloxacin Allergy Intermediate Unknown 08/11/16 Yes strawberry Allergy Intermediate Unknown 08/11/16 Yes venom-wasp Allergy Intermediate Unknown 08/11/16 Yes cyclobenzaprine Adverse Reaction Severe felt bed moving, felt like someone was in bed 08/13/16 Yes alendronate sodium Adverse Reaction Intermediate vision changes 02/10/19 Yes cefdinir Adverse Reaction Intermediate Diarrhea 02/10/19 Yes doxepin Adverse Reaction Intermediate dizzyness 02/10/19 Yes ibuprofen Adverse Reaction Intermediate sores 02/10/19 Yes letrozole Adverse Reaction Intermediate 08/11/16 Yes morphine Adverse Reaction Intermediate vomiting 08/13/16 Yes naproxen Adverse Reaction Intermediate sores 02/10/19 Yes tizanidine Adverse Reaction Intermediate heart palpitaions 02/10/19 Yes metoclopramide Adverse Reaction Mild ITCHY 02/10/19 Yes Physical Exam Physical Exam See Above Constitutional: Well developed, well nourished, no acute distress, non-toxic appearance. [] HENT: Normocephalic, atraumatic, bilateral external ears normal, oropharynx moist, no oral exudates, nose normal. [] Eyes: PERRLA, EOMI, conjunctiva normal, no discharge. [] Neck: Normal range of motion, no tenderness, supple, no stridor. [] Cardiovascular:Heart rate regular rhythm, no murmur [] Lungs & Thorax: Bilateral breath sounds clear to auscultation, Respirations even and unlabored, no retractions, no respiratory distress [] Skin: Warm, dry, no erythema, no rash. [] Back: No tenderness Extremities: No cyanosis, ROM intact, no edema. [] Neurologic: Alert and oriented X 3, no focal deficits noted. [] Psychologic: Affect normal, judgement normal, mood normal. [] Current Patient Data Vital Signs Vital Signs Date Time Temp Pulse Resp B/P (MAP) Pulse Ox O2 Delivery O2 Flow Rate FiO2 02/23/19 14:30 70 18 96 02/23/19 12:09 98.2 167/86 (113) Room Air 98.2 Lab Values Laboratory Tests Test 02/23/19 12:29 White Blood Count 5.8 x10^3/uL (4.0-11.0) Red Blood Count 4.07 x10^6/uL (3.50-5.40) Hemoglobin 12.9 g/dL (12.0-15.5) Hematocrit 38.3 % (36.0-47.0) Mean Corpuscular Volume 94 fL (79-100) Mean Corpuscular Hemoglobin 32 pg (25-35) Mean Corpuscular Hemoglobin Concent 34 g/dL (31-37) Red Cell Distribution Width 13.6 % (11.5-14.5) Platelet Count 239 x10^3/uL (140-400) Neutrophils (%) (Auto) 72 % (31-73) Lymphocytes (%) (Auto) 17 % (24-48) L Monocytes (%) (Auto) 9 % (0-9) Eosinophils (%) (Auto) 1 % (0-3) Basophils (%) (Auto) 1 % (0-3) Neutrophils # (Auto) 4.2 x10^3/uL (1.8-7.7) Lymphocytes # (Auto) 1.0 x10^3/uL (1.0-4.8) Monocytes # (Auto) 0.5 x10^3/uL (0.0-1.1) Eosinophils # (Auto) 0.1 x10^3/uL (0.0-0.7) Basophils # (Auto) 0.0 x10^3/uL (0.0-0.2) Erythrocyte Sedimentation Rate 20 (0-25) Sodium Level 141 mmol/L (136-145) Potassium Level 3.9 mmol/L (3.5-5.1) Chloride Level 103 mmol/L (98-107) Carbon Dioxide Level 27 mmol/L (21-32) Anion Gap 11 (6-14) Blood Urea Nitrogen 9 mg/dL (7-20) Creatinine 0.9 mg/dL (0.6-1.0) Estimated GFR (Cockcroft-Gault) 60.4 BUN/Creatinine Ratio 10 (6-20) Glucose Level 103 mg/dL (70-99) H Calcium Level 9.6 mg/dL (8.5-10.1) Total Bilirubin 0.9 mg/dL (0.2-1.0) Aspartate Amino Transferase (AST) 24 U/L (15-37) Alanine Aminotransferase (ALT) 15 U/L (14-59) Alkaline Phosphatase 62 U/L (46-116) C-Reactive Protein, Quantitative 2.8 mg/L (0-3.3) Total Protein 7.5 g/dL (6.4-8.2) Albumin 4.0 g/dL (3.4-5.0) Albumin/Globulin Ratio 1.1 (1.0-1.7) Laboratory Tests 02/23/19 12:29 Laboratory Tests 02/23/19 12:29 EKG EKG [] Radiology/Procedures Radiology/Procedures PROCEDURE: CT HEAD WO CONTRAST Examination: CT HEAD WO CONTRAST History: Pain Comparison/Correlation: None Findings: Axial images of the head were obtained without contrast. Ventricles are normal size. No intracranial hemorrhage midline shift, or mass effect. Minimal left maxillary sinus opacification noted. Sphenoid sinuses are partially opacified. Bony structures are unremarkable. Impression: No intracranial hemorrhage.[] Course & Med Decision Making Course & Med Decision Making Pertinent Labs and Imaging studies reviewed. (See chart for details) Patient declined Decadron for relief of her pain in the emergency department. Patient took her own Tylenol while she was in the department. CT of her head did not reveal any acute findings, ESR and CRP were not elevated, CBC and CMP were unremarkable. CT of the head revealed no acute findings. The patient was instructed to follow-up with her primary care doctor for further evaluation of her headaches. She is instructed to return to the ER if symptoms worsen. Plan of care was also discussed with and agreed upon by Dr. Barreto Patient verbalized an understanding of home care, medications, follow-up, and return to ED instructions and was in agreement with the plan of care. [] Dragon Disclaimer Dragon Disclaimer This electronic medical record was generated, in whole or in part, using a voice recognition dictation system. Departure Departure Impression: Primary Impression: Left temporal headache Disposition: 01 HOME, SELF-CARE Condition: STABLE Referrals: CLINTON PAYNE MD (PCP) Patient Instructions: General Headache Without Cause, [id number] Additional Instructions: Tylenol as needed for pain. Follow up with your primary care doctor for further evaluation and treatment of headaches. Return to the ER if symptoms worsen. TIM COLLADO APRN Feb 23, 2019 12:04
[2019-02-23] MEDS: DEXAMETHASONE SOD PHOS 20 MG/5 ML VIAL. IV ONE ×2 (12:45→13:14)
[2019-02-23 12:59] LABS: BASO % 1 % (0-3); EOS # 0.1 x10^3/uL (0.0-0.7); EOS % 1 % (0-3); HEMATOCRIT 38.3 % (36.0-47.0); HEMOGLOBIN 12.9 g/dL (12.0-15.5); LYMPH % 17 % (24-48); MEAN CORPUSCULAR HEMOGLOBIN 32 pg (25-35); MEAN CORPUSCULAR HGB CONC 34 g/dL (31-37); MEAN CORPUSCULAR VOLUME 94 fL (79-100); MONO # 0.5 x10^3/uL (0.0-1.1); MONO % 9 % (0-9); NEUT # 4.2 x10^3/uL (1.8-7.7); NEUT % 72 % (31-73); PLATELET COUNT 239 x10^3/uL (140-400); RED BLOOD COUNT 4.07 x10^6/uL (3.50-5.40); RED CELL DISTRIBUTION WIDTH 13.6 % (11.5-14.5); WHITE BLOOD COUNT 5.8 x10^3/uL (4.0-11.0)
[2019-02-23 13:10] LABS: CALCIUM 9.6 mg/dL (8.5-10.1); CREATININE 0.9 mg/dL (0.6-1.0); GFR 60.4; POTASSIUM 3.9 mmol/L (3.5-5.1)
--- NOTE | 2019-02-23 13:16 | RAD ---
Examination: CT HEAD WO CONTRAST History: Pain Comparison/Correlation: None Findings: Axial images of the head were obtained without contrast. Ventricles are normal size. No intracranial hemorrhage midline shift, or mass effect. Minimal left maxillary sinus opacification noted. Sphenoid sinuses are partially opacified. Bony structures are unremarkable. Impression: No intracranial hemorrhage. Chronic paranasal sinusitis. PQRS Compliance Statement: One or more of the following individualized dose reduction techniques were utilized for this examination: 1. Automated exposure control 2. Adjustment of the mA and/or kV according to patient size 3. Use of iterative reconstruction technique Electronically signed by: Rodney De La Garza MD (02/23/2019 1:13 PM) [facility]
[2019-02-23 13:21] LABS: ALBUMIN/GLOBULIN RATIO 1.1 (1.0-1.7); C-REACTIVE PROTEIN 2.8 mg/L (0-3.3); TOTAL BILIRUBIN 0.9 mg/dL (0.2-1.0); TOTAL PROTEIN 7.5 g/dL (6.4-8.2)
[2019-02-23 14:00] VITALS: BP 143/66
== END 2019-02-23 14:42 | disposition home or self-care (01) ==
LOC: ER 10:21
DX: R51 Headache (principal); I48.91 Unspecified atrial fibrillation; E03.9 Hypothyroidism, unspecified; Z88.1 Allergy status to other antibiotic agents; Z88.2 Allergy status to sulfonamides; Z88.5 Allergy status to narcotic agent; Z88.6 Allergy status to analgesic agent; Z88.8 Allergy status to other drugs, medicaments and biological substances; Z91.038 Other insect allergy status
CPT/HCPCS: 36415; 70450; 80053; 85025; 85651; 86140; J1100; 99285-25

== ENCOUNTER 2020-07-16 16:36 | Emergency (ER) | payer MEDICARE, BC ==
[~2020-07-16] VITALS: Ht 157.5 cm; Wt 78.0 kg
[~2020-07-16 16:36] MED LIST changes: -CALC600T4 PO; +CALC600T60 PO; +CHOL200010 PO; +FLUT9.9S NS; +LACT1CAP6 PO; -LEVO75TA PO; +LEVO75TA90 PO; +LIDO700A21 TP; +LORA0.5T96 PO; +MECO10005 PO; +METH-38 PO; +METO25TA4 PO; +ONDA4TAB12 PO; +OXYC1TAB15 PO
--- NOTE | 2020-07-16 16:57 | ED.ADGEN ---
Past Medical History Past Medical History: A-Fib, Cancer, Hypothyroid Additional Past Medical Histor: breast cancer '09,lymphedema,sinus infection Past Surgical History: Cancer Surgery, Tonsillectomy Additional Past Surgical Histo: left mastectomy, DISCETOMY Smoking Status: Former Smoker Alcohol Use: None Drug Use: None General Adult EDM: Chief Complaint: SKIN PROBLEM HPI: HPI: Patient is a 79-year-old female who was referred to the emergency department by her home health nurse for changes related to a wound that has been continuously observed since surgery on May 31 of this year. Patient had a hematoma surgically addressed at this hospital and had been receiving wound care on Mondays, Wednesdays and Fridays. The patient's home health nurse was concerned about redness that he developed as well as some swelling around the incision. The patient has a keloid present and states this has been healthy throughout the recovery. The patient states she felt slightly feverish yesterday however she is otherwise doing well. She denies any drainage from the area. She further denies any rash elsewhere and is not able to observe the rash herself given the location of the surgery. She reports only slight pain cephalad to the scar/keloid. She is awake, alert and nontoxic-appearing. Review of Systems: Review of Systems: Constitutional: Denies fever or chills. [] Eyes: Denies change in visual acuity. [] HENT: Denies nasal congestion or sore throat. [] Respiratory: Denies cough or shortness of breath. [] Cardiovascular: Denies chest pain or edema. [] GI: Denies abdominal pain, nausea, vomiting, bloody stools or diarrhea. [] : Denies dysuria. [] Musculoskeletal: Extremity pain. Denies back pain or joint pain. [] Integument: Reports erythema at surgical site. Denies rash. [] Neurologic: Denies headache, focal weakness or sensory changes. [] Endocrine: Denies polyuria or polydipsia. [] Lymphatic: Denies swollen glands. [] Psychiatric: Denies depression or anxiety. [] Allergies: Allergies: Allergies Coded Allergies Type Severity Reaction Last Updated Verified azithromycin Allergy Severe Anaphylaxis 08/11/16 Yes diphenhydramine Allergy Severe Anaphylaxis 08/11/16 Yes erythromycin base Allergy Severe Anaphylaxis 08/11/16 Yes iodine Allergy Severe 08/11/16 Yes nitrofurantoin Allergy Severe Anaphylaxis 08/11/16 Yes sodium phosphate Allergy Severe Anaphylaxis 08/11/16 Yes vancomycin Allergy Severe Anaphylaxis 08/11/16 Yes Sulfa (Sulfonamide Antibiotics) Allergy Intermediate oral sores 08/13/16 Yes anastrozole Allergy Intermediate 05/16/20 Yes clarithromycin Allergy Intermediate 05/16/20 Yes levofloxacin Allergy Intermediate 05/16/20 Yes moxifloxacin Allergy Intermediate 05/16/20 Yes strawberry Allergy Intermediate 05/16/20 Yes venom-wasp Allergy Intermediate 05/16/20 Yes cyclobenzaprine Adverse Reaction Severe felt bed moving, felt like someone was in bed 08/13/16 Yes alendronate sodium Adverse Reaction Intermediate vision changes 02/10/19 Yes cefdinir Adverse Reaction Intermediate Diarrhea 02/10/19 Yes doxepin Adverse Reaction Intermediate dizzyness 02/10/19 Yes ibuprofen Adverse Reaction Intermediate sores 02/10/19 Yes letrozole Adverse Reaction Intermediate 08/11/16 Yes morphine Adverse Reaction Intermediate vomiting 08/13/16 Yes naproxen Adverse Reaction Intermediate sores 02/10/19 Yes tizanidine Adverse Reaction Intermediate heart palpitaions 02/10/19 Yes metoclopramide Adverse Reaction Mild ITCHY 02/10/19 Yes Physical Exam: PE: Constitutional: Well developed, well nourished, no acute distress, non-toxic appearance. [] HENT: Normocephalic, atraumatic, bilateral external ears normal, oropharynx moist, no oral exudates, nose normal. [] Eyes: PERRLA, EOMI, conjunctiva normal, no discharge. [] Neck: Normal range of motion, no tenderness, supple, no stridor. [] Cardiovascular:Heart rate regular rhythm, no murmur [] Lungs & Thorax: Bilateral breath sounds clear to auscultation [] Abdomen: Bowel sounds normal, soft, no tenderness, no masses, no pulsatile masses. [] Skin: Warm, dry, no erythema, no rash. There is a keloid present where previous surgery was performed which appears to be healthy without cutaneous signs of infection. [] Back: No tenderness, no CVA tenderness. [] Extremities: No tenderness, no cyanosis, no clubbing, ROM intact, no edema. [] Neurologic: Alert and oriented X 3, normal motor function, normal sensory function, no focal deficits noted. [] Psychologic: Affect normal, judgement normal, mood normal. [] Current Patient Data: Vital Signs: Vital Signs Date Time Temp Pulse Resp B/P (MAP) Pulse Ox O2 Delivery O2 Flow Rate FiO2 07/16/20 16:46 98.7 85 18 170/88 (115) 96 Room Air 98.7 EKG: EKG: [] Heart Score: C/O Chest Pain: No Risk Factors: Risk Factors: DM, Current or recent (<one month) smoker, HTN, HLP, family history of CAD, obesity. Risk Scores: Score 0 - 3: 2.5% MACE over next 6 weeks - Discharge Home Score 4 - 6: 20.3% MACE over next 6 weeks - Admit for Clinical Observation Score 7 - 10: 72.7% MACE over next 6 weeks - Early Invasive Strategies Radiology/Procedures: Radiology/Procedures: [] Impression: [address] [place] [address] IMAGING REPORT Signed PATIENT: ULI MILLER ACCOUNT: [id number] : 1940 LOCATION: ER AGE: 79 SEX: F EXAM STATUS: REG ER ORD. PHYSICIAN: DALLAS MENDOSA DO REASON: Medial pain of thigh PROCEDURE: VENOUS LOWER EXTREMITY RIGHT US DPLX VENOUS EXTREMITY LOWER RT History: Reason: Medial pain of thigh / Spl. Instructions: / History: Comparison: May 30, 2020 Discussion: Multiple longitudinal and transverse high resolution real-time images of the venous system of right lower extremity were obtained with color and Doppler sampling. The common femoral, superficial femoral, popliteal and proximal calf veins are all patent and demonstrate normal flow and compressibility. Normal respiratory phasicity and augmentation is present. Complex fluid collection within the right upper medial thigh measures 4.2 x 0.9 x 3.0 cm. Overall size is decreased compared to prior. Impression: 1. No evidence of deep vein thrombosis. 2. Complex fluid collection within the right upper medial thigh, may represent postoperative hematoma or seroma. Recommend correlation for abscess. Electronically signed by: Marvin Marcelo DO (07/16/2020 5:37 PM) [facility] DICTATED and SIGNED BY: MARVIN MARCELO DO DATE: 07/16/20 [id number] Course & Med Decision Making: Course & Med Decision Making Pertinent Labs and Imaging studies reviewed. (See chart for details) The patient remains awake, alert and in no acute distress. Ultrasonography of the right lower extremity was undertaken and did not reveal any deep vein thrombosis present. There is a small fluid collection cephalad to the surgical incision which has been well managed by wound care. This fluid collection is smaller according to previous imaging evaluations. Moreover I do not suspect this is an abscess as this is not erythematous, fluctuant nor is it exquisitely tender upon palpation. This likely favors either a hematoma or seroma relative to surgery which was undertaken over 6 weeks ago. I have advised the patient to follow-up with her wound care appointment on Tuesday as scheduled and return to the emergency department should she develop any fevers or worsening pain prior to that time. The patient and her who is present understand and have agreed to do so. The patient is nontoxic-appearing and resting comfortably. She is stable for discharge. [] Giulianaon Disclaimer: Dragon Disclaimer: This electronic medical record was generated, in whole or in part, using a voice recognition dictation system. Departure Departure Impression: Primary Impression: Postoperative pain of extremity Disposition: HOME / SELF CARE / HOMELESS Condition: STABLE Referrals: LAURA SOLIS (PCP) Patient Instructions: Wound Check DALLAS MENDOSA DO July 16, 2020 16:57
--- NOTE | 2020-07-16 17:39 | RAD ---
US DPLX VENOUS EXTREMITY LOWER RT History: Reason: Medial pain of thigh / Spl. Instructions: / History: Comparison: May 30, 2020 Discussion: Multiple longitudinal and transverse high resolution real-time images of the venous system of right l ower extremity were obtained with color and Doppler sampling. The common femoral, superficial femoral , popliteal and proximal calf veins are all patent and demonstrate normal flow and compressibility. N ormal respiratory phasicity and augmentation is present. Complex fluid collection within the right upper medial thigh measures 4.2 x 0.9 x 3.0 cm. Overall siz e is decreased compared to prior. Impression: 1. No evidence of deep vein thrombosis. 2. Complex fluid collection within the right upper medial thigh, may represent postoperative hematom a or seroma. Recommend correlation for abscess. Electronically signed by: Marvin Marcelo DO (07/16/2020 5:37 PM) [facility]
[2020-07-16 17:49] VITALS: BP 147/77
== END 2020-07-16 18:13 | disposition home or self-care (01) ==
LOC: ER 16:36
DX: G89.18 Other acute postprocedural pain (principal); M79.604 Pain in right leg; I48.91 Unspecified atrial fibrillation; E03.9 Hypothyroidism, unspecified; Z87.891 Personal history of nicotine dependence; Z88.1 Allergy status to other antibiotic agents; Z88.5 Allergy status to narcotic agent; Z88.2 Allergy status to sulfonamides; Z91.018 Allergy to other foods; Z91.030 Bee allergy status; Z88.8 Allergy status to other drugs, medicaments and biological substances
CPT/HCPCS: 93971; 99284

== ENCOUNTER 2021-05-30 08:51 | Emergency (ER) | payer MEDICARE, BC ==
[~2021-05-30] VITALS: Ht 157.5 cm; Wt 77.2 kg
[~2021-05-30 08:51] MED LIST changes: +CYCL10TA19 PO; -CYCL10TA2 PO; -SCOP1PAT11 TD; +SCOP1PAT12 TD
[2021-05-30] MEDS ORDERED: ONDANSETRON PF 4 MG/2 ML VIAL. IVP ONE (09:30)
[2021-05-30] MEDS ORDERED: fentaNYL PF VIAL 100 MCG/2 ML VIAL IVP ONE (09:30)
[2021-05-30] MEDS ORDERED: IV NORMAL SALINE 1000ML BAG 1,000 ML IV ONE (09:30)
--- NOTE | 2021-05-30 09:36 | ED.ADGEN ---
Past Medical History Past Medical History: A-Fib, Cancer, Hypothyroid Additional Past Medical Histor: breast cancer '09,lymphedema,RVR Past Surgical History: Cancer Surgery, Tonsillectomy, Other Additional Past Surgical Histo: left mastectomy, DISCETOMY,VEIN ABLATION Smoking Status: Never Smoker Alcohol Use: None Drug Use: None General Adult EDM: Chief Complaint: WEAKNESS/GENERALIZED HPI: HPI: Patient is a 80 year old female coming in from home via EMS for multiple complaints. Patient states she felt sick yesterday and had some nausea, no vomiting. Had decreased appetite and p.o. intake. Denies any vomiting. Duoplant pain in the right side of her abdomen. Patient felt that maybe she was constipated and took a Dulcolax. Has had diarrhea since then. Unsure of how many episodes of diarrhea she has had. Patient states this morning when she was he had to use the restroom she felt faint, hot flashes and diaphoresis. Denies any recent travel, antibiotic use, sick contacts or large cooked food. Patient was concerned she ate some chicken tenders which were fried and that that were causing her diarrhea since she had her gallbladder removed. Review of Systems: Review of Systems: All other systems within normal limits except for as noted in the HPI Current Medications: Current Medications Medications (Trade) Dose Ordered Sig/Brock Start Time Stop Time Status Last Admin Dose Admin Fentanyl Citrate (Fentanyl 2ml Vial) 25 mcg 1X ONCE 05/30/21 09:30 05/30/21 09:31 DC 05/30/21 09:37 25 MCG Info (CONTRAST GIVEN -- Rx MONITORING) 1 each PRN DAILY PRN 05/30/21 10:45 06/01/21 10:44 Iohexol (Omnipaque 300 Mg/ml) 75 ml 1X ONCE 05/30/21 10:45 05/30/21 10:46 DC 05/30/21 10:20 75 ML Loperamide HCl (Imodium) 2 mg 1X STAT 05/30/21 11:38 05/30/21 11:44 DC 05/30/21 12:10 2 MG Ondansetron HCl (Zofran) 4 mg 1X ONCE 05/30/21 09:30 05/30/21 09:31 DC 05/30/21 09:37 4 MG Sodium Chloride 1,000 ml @ 1,000 mls/hr 1X ONCE 05/30/21 09:30 05/30/21 10:29 DC 05/30/21 09:35 1,000 MLS/HR Allergies: Allergies: Allergies Coded Allergies Type Severity Reaction Last Updated Verified azithromycin Allergy Severe Anaphylaxis 08/11/16 Yes diphenhydramine Allergy Severe Anaphylaxis 08/11/16 Yes erythromycin base Allergy Severe Anaphylaxis 08/11/16 Yes iodine Allergy Severe 08/11/16 Yes nitrofurantoin Allergy Severe Anaphylaxis 08/11/16 Yes sodium phosphate Allergy Severe Anaphylaxis 08/11/16 Yes vancomycin Allergy Severe Anaphylaxis 08/11/16 Yes Sulfa (Sulfonamide Antibiotics) Allergy Intermediate oral sores 08/13/16 Yes anastrozole Allergy Intermediate 05/16/20 Yes clarithromycin Allergy Intermediate 05/16/20 Yes levofloxacin Allergy Intermediate 05/16/20 Yes moxifloxacin Allergy Intermediate 05/16/20 Yes strawberry Allergy Intermediate 05/16/20 Yes venom-wasp Allergy Intermediate 05/16/20 Yes cyclobenzaprine Adverse Reaction Severe felt bed moving, felt like someone was in bed 08/13/16 Yes alendronate sodium Adverse Reaction Intermediate vision changes 02/10/19 Yes cefdinir Adverse Reaction Intermediate Diarrhea 02/10/19 Yes doxepin Adverse Reaction Intermediate dizzyness 02/10/19 Yes ibuprofen Adverse Reaction Intermediate sores 02/10/19 Yes letrozole Adverse Reaction Intermediate 08/11/16 Yes morphine Adverse Reaction Intermediate vomiting 08/13/16 Yes naproxen Adverse Reaction Intermediate sores 02/10/19 Yes tizanidine Adverse Reaction Intermediate heart palpitaions 02/10/19 Yes metoclopramide Adverse Reaction Mild ITCHY 02/10/19 Yes Physical Exam: PE: Constitutional: Well developed, well nourished, no acute distress, non-toxic appearance. [] HENT: Normocephalic, atraumatic, bilateral external ears normal, nose normal. [] Eyes: PERRLA, conjunctiva normal, no discharge. [] Neck: No rigidity, supple, no stridor. [] Cardiovascular: Regular rate and rhythm, brisk cap refill [] Lungs & Thorax: Non labored symmetric respirations, no tachypnea or respiratory distress [] Abdomen: Soft, nondistended, right upper and lower abdominal tenderness, right flank tenderness. Skin: Warm, dry, no erythema, no rash. [] Back: Unremarkable Extremities: No deformities, range of motion grossly intact, no lower extremity edema [] Neurologic: Alert and oriented X 3, no focal deficits noted. [] Psychologic: Affect normal, judgement normal, mood normal. [] Current Patient Data: Labs: Laboratory Tests Test 05/30/21 09:19 White Blood Count 6.9 x10^3/uL (4.0-11.0) Red Blood Count 4.40 x10^6/uL (3.50-5.40) Hemoglobin 13.8 g/dL (12.0-15.5) Hematocrit 41.8 % (36.0-47.0) Mean Corpuscular Volume 95 fL (79-100) Mean Corpuscular Hemoglobin 31 pg (25-35) Mean Corpuscular Hemoglobin Concent 33 g/dL (31-37) Red Cell Distribution Width 13.8 % (11.5-14.5) Platelet Count 187 x10^3/uL (140-400) Neutrophils (%) (Auto) 68 % (31-73) Lymphocytes (%) (Auto) 19 % (24-48) L Monocytes (%) (Auto) 9 % (0-9) Eosinophils (%) (Auto) 3 % (0-3) Basophils (%) (Auto) 1 % (0-3) Neutrophils # (Auto) 4.7 x10^3/uL (1.8-7.7) Lymphocytes # (Auto) 1.3 x10^3/uL (1.0-4.8) Monocytes # (Auto) 0.6 x10^3/uL (0.0-1.1) Eosinophils # (Auto) 0.2 x10^3/uL (0.0-0.7) Basophils # (Auto) 0.1 x10^3/uL (0.0-0.2) Sodium Level 140 mmol/L (136-145) Potassium Level 4.4 mmol/L (3.5-5.1) Chloride Level 102 mmol/L (98-107) Carbon Dioxide Level 30 mmol/L (21-32) Anion Gap 8 (6-14) Blood Urea Nitrogen 13 mg/dL (7-20) Creatinine 0.9 mg/dL (0.6-1.0) Estimated GFR (Cockcroft-Gault) 60.1 BUN/Creatinine Ratio 14 (6-20) Glucose Level 133 mg/dL (70-99) H Lactic Acid Level 2.1 mmol/L (0.4-2.0) H Calcium Level 9.9 mg/dL (8.5-10.1) Phosphorus Level 4.5 mg/dL (2.6-4.7) Magnesium Level 2.0 mg/dL (1.8-2.4) Total Bilirubin 0.9 mg/dL (0.2-1.0) Aspartate Amino Transferase (AST) 15 U/L (15-37) Alanine Aminotransferase (ALT) 21 U/L (14-59) Alkaline Phosphatase 57 U/L (46-116) Troponin I High Sensitivity 6 ng/L (4-50) GI-Mhi-L-Type Natriuretic Peptide 468 pg/mL (0-449) H Total Protein 7.6 g/dL (6.4-8.2) Albumin 4.1 g/dL (3.4-5.0) Albumin/Globulin Ratio 1.2 (1.0-1.7) Lipase 73 U/L (73-393) Laboratory Tests 05/30/21 09:19 Laboratory Tests 05/30/21 09:19 Vital Signs: Vital Signs Date Time Temp Pulse Resp B/P (MAP) Pulse Ox O2 Delivery O2 Flow Rate FiO2 05/30/21 11:26 76 145/78 (100) 95 05/30/21 09:37 16 Room Air 05/30/21 08:59 97.4 97.4 EKG: EKG: Sinus rhythm, heart rate 60 bpm, prolonged TN interval, left axis deviation, no STEMI [] Heart Score: C/O Chest Pain: No Risk Factors: Risk Factors: DM, Current or recent (<one month) smoker, HTN, HLP, family history of CAD, obesity. Risk Scores: Score 0 - 3: 2.5% MACE over next 6 weeks - Discharge Home Score 4 - 6: 20.3% MACE over next 6 weeks - Admit for Clinical Observation Score 7 - 10: 72.7% MACE over next 6 weeks - Early Invasive Strategies Radiology/Procedures: Radiology/Procedures: [facility] [address] [place], [place] [id number] IMAGING REPORT Signed PATIENT: ULI MILLER ACCOUNT: [id number] : 1940 LOCATION: ER AGE: 80 SEX: F EXAM STATUS: REG ER ORD. PHYSICIAN: STEPHON GORDON MD REASON: right abd pain PROCEDURE: CT ABD PELV W/ IV CONTRST ONLY CT abdomen pelvis with contrast. HISTORY: Right-sided abdominal pain CT abdomen pelvis was done using 75 mL Omnipaque 300 contrast. Lung bases are clear. There is no effusion. Patient's had a cholecystectomy. Common duct is dilated. Left intrahepatic ducts are dilated, the common duct is similar to the prior study from April 2020. Spleen is unremarkable. Adrenal glands are normal. Pancreas is normal. There is no mass or hydronephrosis in the kidneys. There is no bowel obstruction or ascites. There is no free air. Appendix is normal. Uteru s and ovaries are unremarkable. There is mild diverticulosis of the colon without diverticulitis. There is mild wall thickening of the colon suggesting a colitis more on the left than on the right. There is thoracolumbar scoliosis. There is mild spondylolisthesis at L4-5. IMPRESSION: 1. Dilated common duct but similar to the prior study. 2. Normal appendix. 3. No bowel obstruction. 4. Wall thickening of the colon suggesting a colitis. 5. No small bowel obstruction. 6. No ureteral or renal calculus noted. PQRS Compliance Statement: One or more of the following individualized dose reduction techniques were utilized for this examination: 1. Automated exposure control 2. Adjustment of the mA and/or kV according to patient size 3. Use of iterative reconstruction technique Electronically signed by: Jeison Gaitan MD (05/30/2021 11:11 AM) [id number] DICTATED and SIGNED BY: JEISON GAITAN MD DATE: 05/30/21 1105 [] Course & Med Decision Making: Course & Med Decision Making Pertinent Labs and Imaging studies reviewed. (See chart for details) Work-up unremarkable, patient states she is feeling better [] Dragon Disclaimer: Dragon Disclaimer: This electronic medical record was generated, in whole or in part, using a voice recognition dictation system. Departure Departure Impression: Primary Impression: Colitis Disposition: 01 HOME / SELF CARE / HOMELESS Condition: STABLE Referrals: LAURA SOLIS (PCP) Patient Instructions: Diet for Diarrhea, Adult Scripts Ondansetron (ONDANSETRON ODT) 4 Mg Tab.rapdis 1 TAB PO PRN Q6-8HRS PRN for NAUSEA, #16 TAB Prov: STEPHON GORDON MD 05/30/21 STEPHON GORDON MD May 30, 2021 09:36
[2021-05-30 10:13] LABS: BASO # 0.1 x10^3/uL (0.0-0.2); BASO % 1 % (0-3); EOS # 0.2 x10^3/uL (0.0-0.7); EOS % 3 % (0-3); HEMATOCRIT 41.8 % (36.0-47.0); HEMOGLOBIN 13.8 g/dL (12.0-15.5); LYMPH # 1.3 x10^3/uL (1.0-4.8); LYMPH % 19 % (24-48); MEAN CORPUSCULAR HEMOGLOBIN 31 pg (25-35); MEAN CORPUSCULAR HGB CONC 33 g/dL (31-37); MEAN CORPUSCULAR VOLUME 95 fL (79-100); MONO # 0.6 x10^3/uL (0.0-1.1); MONO % 9 % (0-9); NEUT # 4.7 x10^3/uL (1.8-7.7); NEUT % 68 % (31-73); PLATELET COUNT 187 x10^3/uL (140-400); RED CELL DISTRIBUTION WIDTH 13.8 % (11.5-14.5); WHITE BLOOD COUNT 6.9 x10^3/uL (4.0-11.0)
[2021-05-30 10:28] LABS: CALCIUM 9.9 mg/dL (8.5-10.1); CREATININE 0.9 mg/dL (0.6-1.0); GFR 60.1; POTASSIUM 4.4 mmol/L (3.5-5.1)
[2021-05-30 10:33] LABS: ALBUMIN 4.1 g/dL (3.4-5.0); ALBUMIN/GLOBULIN RATIO 1.2 (1.0-1.7); PHOSPHORUS 4.5 mg/dL (2.6-4.7); TOTAL BILIRUBIN 0.9 mg/dL (0.2-1.0); TOTAL PROTEIN 7.6 g/dL (6.4-8.2)
[2021-05-30] MEDS ORDERED: IOHEXOL 300 MG/ML 100ML VIAL. IV ONE (10:45)
[2021-05-30] MEDS ORDERED: CONTRAST GIVEN. MC PRN (10:45)
--- NOTE | 2021-05-30 11:13 | RAD ---
CT abdomen pelvis with contrast. HISTORY: Right-sided abdominal pain CT abdomen pelvis was done using 75 mL Omnipaque 300 contrast. Lung bases are clear. There is no effu namita. Patient's had a cholecystectomy. Common duct is dilated. Left intrahepatic ducts are dilated, t he common duct is similar to the prior study from April 2020. Spleen is unremarkable. Adrenal glands are normal. Pancreas is normal. There is no mass or hydronephrosis in the kidneys. There is no bowel obstruction or ascites. There is no free air. Appendix is normal. Uterus and ovaries are unremarkable . There is mild diverticulosis of the colon without diverticulitis. There is mild wall thickening of the colon suggesting a colitis more on the left than on the right. There is thoracolumbar scoliosis. There is mild spondylolisthesis at L4-5. IMPRESSION: 1. Dilated common duct but similar to the prior study. 2. Normal appendix. 3. No bowel obstruction. 4. Wall thickening of the colon suggesting a colitis. 5. No small bowel obstruction. 6. No ureteral or renal calculus noted. PQRS Compliance Statement: One or more of the following individualized dose reduction techniques were utilized for this examinat ion: 1. Automated exposure control 2. Adjustment of the mA and/or kV according to patient size 3. Use of iterative reconstruction technique Electronically signed by: Jeison Gaitan MD (05/30/2021 11:11 AM) [id number]
[2021-05-30] MEDS ORDERED: LOPERAMIDE 2 MG CAPSULE PO STA (11:38)
[2021-05-30] MEDS ORDERED: ONDA4TAB12 PO (11:51)
[2021-05-30 11:56] VITALS: BP 127/59
--- NOTE | 2021-06-01 07:50 | EKG ---
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
[2021-06-10] MEDS ORDERED: METR-34 PO (10:59)
[2021-06-10] MEDS ORDERED: PANT40TA77 PO (10:59)
[2021-06-11] MEDS ORDERED: POTA8CAP19 PO (09:41)
== END 2021-05-30 12:19 | disposition home or self-care (01) ==
LOC: ER 08:51
DX: K52.9 Noninfective gastroenteritis and colitis, unspecified (principal); I48.91 Unspecified atrial fibrillation; E03.9 Hypothyroidism, unspecified; Z88.1 Allergy status to other antibiotic agents; Z88.5 Allergy status to narcotic agent; Z88.2 Allergy status to sulfonamides; Z88.8 Allergy status to other drugs, medicaments and biological substances; Z91.018 Allergy to other foods; Z91.030 Bee allergy status
CPT/HCPCS: 36415; 74177; 80053; 83605; 83690; 83735; 83880; 84100; 84484; 85025; 87505; 93005; 96361; 96374; 96375; 99285; J2405; J3010; J7030; Q9967

== ENCOUNTER 2021-06-07 17:03 | Inpatient (IN) | payer MEDICARE, BC ==
[~2021-06-07] VITALS: Ht 157.5 cm; Wt 90.9 kg
[2021-06-07] MEDS ORDERED: fentaNYL PF VIAL 100 MCG/2 ML VIAL IV STA (17:11)
[2021-06-07] MEDS ORDERED: IV NORMAL SALINE 1000ML BAG 500 ML IV SCH (17:15)
[2021-06-07] MEDS ORDERED: ONDANSETRON PF 4 MG/2 ML VIAL. IVP ONE ×2 (17:15→19:15)
--- NOTE | 2021-06-07 17:53 | PHYS DOC ---
Past Medical History Past Medical History: A-Fib, Cancer, Hypothyroid Additional Past Medical Histor: breast cancer '09,lymphedema,RVR Past Surgical History: Cancer Surgery, Tonsillectomy, Other Additional Past Surgical Histo: left mastectomy, DISCETOMY,VEIN ABLATION Smoking Status: Never Smoker Alcohol Use: None Drug Use: None General Adult EDM: Chief Complaint: CONSTIPATION HPI: HPI: Patient is a 80 year old female who presents with recurrent abdominal pain. Patient was here on May 30 with a similar issue, she was experiencing diarrhea and abdominal pain. CT scan did not reveal anything. Patient was discharged in good condition with loperamide. Patient has been doing well since then however patient stated that she has been constipated and has had increasing abdominal pain since discharge from the emergency department. Please refer to her prior note for full details. Patient arrives with EMS. Patient is speaking in full sentences and ANO x4. Patient states that she tried taking Colace as well as MiraLAX, however she is still experiencing severe abdominal pain on bilateral sides. Patient notes that she is not able to defecate. She is tender throughout abdomen Review of Systems: Review of Systems: Constitutional: Denies fever or chills. [] Eyes: Denies change in visual acuity. [] HENT: Denies nasal congestion or sore throat. [] Respiratory: Denies cough or shortness of breath. [] Cardiovascular: Denies chest pain or edema. [] GI: Positive abdominal pain, nausea, no vomiting, bloody stools or diarrhea. [] : Denies dysuria. [] Musculoskeletal: Denies back pain or joint pain. [] Integument: Denies rash. [] Neurologic: Denies headache, focal weakness or sensory changes. [] Endocrine: Denies polyuria or polydipsia. [] Lymphatic: Denies swollen glands. [] Psychiatric: Denies depression or anxiety. [] Heart Score: C/O Chest Pain: No Risk Factors: Risk Factors: DM, Current or recent (<one month) smoker, HTN, HLP, family history of CAD, obesity. Risk Scores: Score 0 - 3: 2.5% MACE over next 6 weeks - Discharge Home Score 4 - 6: 20.3% MACE over next 6 weeks - Admit for Clinical Observation Score 7 - 10: 72.7% MACE over next 6 weeks - Early Invasive Strategies Current Medications: Current Medications Medications (Trade) Dose Ordered Sig/Brock Start Time Stop Time Status Last Admin Dose Admin Fentanyl Citrate (Fentanyl 2ml Vial) 25 mcg 1X STAT 06/07/21 17:11 06/07/21 17:19 DC Ondansetron HCl (Zofran) 4 mg 1X ONCE 06/07/21 17:15 06/07/21 17:19 DC Sodium Chloride 500 ml @ 1,000 mls/hr Q30M 06/07/21 17:15 06/07/21 17:44 Allergies: Allergies: Allergies Coded Allergies Type Severity Reaction Last Updated Verified azithromycin Allergy Severe Anaphylaxis 06/07/21 Yes diphenhydramine Allergy Severe Anaphylaxis 06/07/21 Yes erythromycin base Allergy Severe Anaphylaxis 06/07/21 Yes iodine Allergy Severe 06/07/21 Yes nitrofurantoin Allergy Severe Anaphylaxis 06/07/21 Yes sodium phosphate Allergy Severe Anaphylaxis 06/07/21 Yes vancomycin Allergy Severe Anaphylaxis 08/11/16 Yes Sulfa (Sulfonamide Antibiotics) Allergy Intermediate oral sores 08/13/16 Yes anastrozole Allergy Intermediate 05/16/20 Yes clarithromycin Allergy Intermediate 05/16/20 Yes levofloxacin Allergy Intermediate 05/16/20 Yes moxifloxacin Allergy Intermediate 05/16/20 Yes strawberry Allergy Intermediate 05/16/20 Yes venom-wasp Allergy Intermediate 05/16/20 Yes cyclobenzaprine Adverse Reaction Severe felt bed moving, felt like someone was in bed 08/13/16 Yes alendronate sodium Adverse Reaction Intermediate vision changes 02/10/19 Yes cefdinir Adverse Reaction Intermediate Diarrhea 02/10/19 Yes doxepin Adverse Reaction Intermediate dizzyness 02/10/19 Yes ibuprofen Adverse Reaction Intermediate sores 02/10/19 Yes letrozole Adverse Reaction Intermediate 08/11/16 Yes morphine Adverse Reaction Intermediate vomiting 08/13/16 Yes naproxen Adverse Reaction Intermediate sores 02/10/19 Yes tizanidine Adverse Reaction Intermediate heart palpitaions 02/10/19 Yes metoclopramide Adverse Reaction Mild ITCHY 02/10/19 Yes Physical Exam: PE: Constitutional: Well developed, well nourished, no acute distress, non-toxic appearance. [] HENT: Normocephalic, atraumatic, bilateral external ears normal, oropharynx moist, no oral exudates, nose normal. [] Eyes: PERRLA, EOMI, conjunctiva normal, no discharge. [] Neck: Normal range of motion, no tenderness, supple, no stridor. [] Cardiovascular:Heart rate regular rhythm, no murmur [] Lungs & Thorax: Bilateral breath sounds clear to auscultation [] Abdomen: Bowel sounds normal, soft, positive generalized tenderness, no masses, no pulsatile masses. [] Skin: Warm, dry, no erythema, no rash. [] Back: No tenderness, no CVA tenderness. [] Extremities: No tenderness, no cyanosis, no clubbing, ROM intact, no edema. [] Neurologic: Alert and oriented X 3, normal motor function, normal sensory function, no focal deficits noted. [] Psychologic: Affect normal, judgement normal, mood normal. [] Current Patient Data: Vital Signs: Vital Signs Date Time Temp Pulse Resp B/P (MAP) Pulse Ox O2 Delivery O2 Flow Rate FiO2 06/07/21 17:20 98.2 58 16 138/65 (89) 98 Room Air 98.2 EKG: EKG: Normal sinus rhythm Radiology/Procedures: Radiology/Procedures: [] Impression: 80-year-old female with abdominal pain Course & Med Decision Making: Course & Med Decision Making Pertinent Labs and Imaging studies reviewed. (See chart for details) Labs, fluids, Zofran, fentanyl, CT scan with contrast of abdomen and pelvis were ordered. Patient was handed off to Dr. Akbar at the end of my shift. He will continue care. Dragon Disclaimer: Fiona Disclaimer: This electronic medical record was generated, in whole or in part, using a voice recognition dictation system. Departure Departure Referrals: LAURA SOLIS (PCP) AISSATOU HARRIS MD Jun 07, 2021 17:53
[2021-06-07 18:05] LABS: BASO % 0 % (0-3); EOS # 0.1 x10^3/uL (0.0-0.7); EOS % 1 % (0-3); HEMATOCRIT 40.8 % (36.0-47.0); HEMOGLOBIN 13.3 g/dL (12.0-15.5); LYMPH # 0.7 x10^3/uL (1.0-4.8); LYMPH % 4 % (24-48); MEAN CORPUSCULAR HEMOGLOBIN 31 pg (25-35); MEAN CORPUSCULAR HGB CONC 33 g/dL (31-37); MEAN CORPUSCULAR VOLUME 95 fL (79-100); MONO # 1.6 x10^3/uL (0.0-1.1); MONO % 8 % (0-9); NEUT # 16.7 x10^3/uL (1.8-7.7); NEUT % 88 % (31-73); PLATELET COUNT 281 x10^3/uL (140-400); RED BLOOD COUNT 4.32 x10^6/uL (3.50-5.40); RED CELL DISTRIBUTION WIDTH 13.8 % (11.5-14.5); WHITE BLOOD COUNT 19.1 x10^3/uL (4.0-11.0)
[2021-06-07 18:37] LABS: % LYMPHS 4 % (24-48); % MONOS 5 % (0-10); % SEGS 91 % (35-66); BURR CELLS PRESENT; PLT ESTIMATE ADEQUATE (ADEQUATE)
[2021-06-07 19:50] LABS: FECAL OB PT POSITIVE (NEG)
[2021-06-07 20:43] LABS: CALCIUM 8.7 mg/dL (8.5-10.1); CREATININE 0.9 mg/dL (0.6-1.0); GFR 60.1; POTASSIUM 3.9 mmol/L (3.5-5.1)
[2021-06-07 20:50] LABS: ALBUMIN 3.6 g/dL (3.4-5.0); ALBUMIN/GLOBULIN RATIO 1.4 (1.0-1.7); TOTAL PROTEIN 6.2 g/dL (6.4-8.2)
[2021-06-07] MEDS ORDERED: IOHEXOL 300 MG/ML 100ML VIAL. IV ONE (21:00)
[2021-06-07] MEDS ORDERED: CONTRAST GIVEN. MC PRN (21:00)
--- NOTE | 2021-06-07 21:49 | RAD ---
Exam: CT of abdomen and pelvis with contrast INDICATION: Abdominal pain TECHNIQUE: Sequential axial images through the abdomen and pelvis obtained following the administrati on of 75 mL of Isovue-370 IV contrast. Sagittal and coronal reformatted images were reconstructed fro m the axial data and reviewed. Exposure: One or more of the following in the visualized dose reduction techniques were utilized for this examination: 1. Automated exposure control 2. Adjustment of the MA and/or KV according to patient size 3. Use of iterative of reconstructive technique Comparisons: 05/30/2021 FINDINGS: Heart size is normal. No pericardial effusion. Visualized lung bases are clear. No pleural effusion. Liver, spleen, pancreas, and adrenals are unremarkable. Gallbladder is absent. No perinephric inflammation or hydronephrosis. No renal or ureteral calculi are identified. Bladder is partially distended and not well evaluated. Uterus is not enlarged. No abnormal adnexal ma ss. There is a long segment of mucosal hyperenhancement and adjacent fat stranding surrounding the colon. Small bowel is unremarkable. No free intra-abdominal air or fluid. No obstruction. Abdominal aorta has normal course and caliber. Abdominal vasculature is patent. No enlarged intra-abdominal lymph nodes are identified. No suspicious osseous lesions or acute fractures. IMPRESSION: Long segment wall thickening involving the descending colon which is nonspecific may be infectious or inflammatory in etiology. Electronically signed by: Shalini Miranda MD (06/07/2021 9:47 PM) [facility]
[2021-06-07] MEDS ORDERED: fentaNYL PF VIAL 100 MCG/2 ML VIAL IVP PRN (22:45)
[2021-06-07] MEDS ORDERED: ONDANSETRON PF 4 MG/2 ML VIAL. IVP PRN (22:45)
[2021-06-07] MEDS ORDERED: ACETAMINOPHEN 500 MG TABLET PO ONE (22:45)
[2021-06-07] MEDS ORDERED: PIPERACILLIN/TAZOBACTAM 4.5 GM in IV DEXTROSE 5% 100ML 100 ML IV ONE (23:00)
[2021-06-07 23:37] VITALS: BP 123/55
[2021-06-08] VITALS (7 sets, daily range): BP systolic 115–162; BP diastolic 48–64
[2021-06-08] MEDS ORDERED: PRED20TA PO (00:35)
--- NOTE | 2021-06-08 03:39 | EKG ---
[facility] [address] [place] [address] Test Date: 2021-06-07 Test Time: 17:36:07 Pat Name: ULI MILLER Department: Room: [facility] Gender: F [employer]: : 1940 Requested By: AISSAOTU Hoskins Number: [id number] Reading MD: Scott Pereyra Measurements Intervals [place] Rate: 59 P: 90 [place]: 266 QRS: -16 QRSD: 80 T: 8 QT: 444 QTc: 444 Interpretive Statements SINUS RHYTHM FIRST DEGREE AV BLOCK Electronically Signed On 06-10-2021 18:23:58 CDT by Scott Pereyra
[2021-06-08] MEDS ORDERED: IV NORMAL SALINE 1000ML BAG 1,000 ML IV ONE (06:15)
--- NOTE | 2021-06-08 10:08 | PDOC2 ---
GI CONSULT Date of Service: DATE: 06/08/21 TIME: 10:07 Reason For Consult: acute colitis HPI: HPI: 80 y/o female who reports typical bowel pattern of 4 formed "normal" stools daily. This changed several weeks ago. Went several days without any stools, then passed rabbit pellets. Associated w/ right-sided abdominal pain and n/v. Says pain was terrible and "I always pass out from pain" (but no syncope this time). Seen in ER on 05/30 for this - reported diarrhea at that time. Saw PCP last Tuesday who prescribed an antibiotic and prednisone. At some point (last Tuesday?), was also advised by PCP to take Miralax w/ Gatorade and Dulcolax. Returned to ER yesterday and admitted. It is difficult for me to sort out if diarrhea or constipation is her main bowel complaint - today she is passing bro wn liquid stools and tolerating clear liquid diet (though holding emesis basin). H/o GERD (chart lists Nesbitt's?) on famotidine QHS. Also reports problems with food "sitting" in epigastric region, feels full and bloated - eats small amounts to help with this and often takes Gaviscon which isn't too helpful. Chronic issues w/ some food/pills getting stuck in left neck - taking little bites helps her avoid this - this is stable. No hematemesis, hematochezia, melena, or weight loss. Recalls past EGD w/ Dr. Portillo - says throat was stretched. Does not recall previous colonoscopy. S/p cholecystectomy. Denies liver, pancreas, and PUD history. Previously on Plavix - stopped. Now on ASA 81mg QD. PMH: PMH: A Fib, bronchitis, breast cancer, anxiety, allergic rhinitis, BCC, hypothyroidism cholecystectomy, left mastectomy, chemo/rad, tubal ligation, tonsillectomy, venous ablation, hematoma evacuation Social History: ALCOHOL: none Drugs: None ROS: GEN: Denies fevers, chills, sweats HEENT: Denies blurred vision, sore throat CV: Denies chest pain RESP: Denies shortness of air, cough GI: Per HPI : Denies hematuria, dysuria ENDO: Denies weight changes NEURO: Denies confusion, dizziness MSK: Denies weakness, joint pain/swelling SKIN: Denies jaundice, pruritus Vitals: Vitals: Vital Signs Date Time Temp Pulse Resp B/P (MAP) Pulse Ox O2 Delivery O2 Flow Rate FiO2 06/08/21 08:00 Room Air 06/08/21 07:00 98.6 57 18 127/56 (79) 95 98.6 Labs: Labs: Laboratory Tests Test 06/07/21 17:59 06/07/21 19:00 06/07/21 19:25 06/07/21 20:20 White Blood Count 19.1 x10^3/uL (4.0-11.0) Red Blood Count 4.32 x10^6/uL (3.50-5.40) Hemoglobin 13.3 g/dL (12.0-15.5) Hematocrit 40.8 % (36.0-47.0) Mean Corpuscular Volume 95 fL (79-100) Mean Corpuscular Hemoglobin 31 pg (25-35) Mean Corpuscular Hemoglobin Concent 33 g/dL (31-37) Red Cell Distribution Width 13.8 % (11.5-14.5) Platelet Count 281 x10^3/uL (140-400) Neutrophils (%) (Auto) 88 % (31-73) Lymphocytes (%) (Auto) 4 % (24-48) Monocytes (%) (Auto) 8 % (0-9) Eosinophils (%) (Auto) 1 % (0-3) Basophils (%) (Auto) 0 % (0-3) Neutrophils # (Auto) 16.7 x10^3/uL (1.8-7.7) Lymphocytes # (Auto) 0.7 x10^3/uL (1.0-4.8) Monocytes # (Auto) 1.6 x10^3/uL (0.0-1.1) Eosinophils # (Auto) 0.1 x10^3/uL (0.0-0.7) Basophils # (Auto) 0.0 x10^3/uL (0.0-0.2) Segmented Neutrophils % 91 % (35-66) Lymphocytes % 4 % (24-48) Monocytes % 5 % (0-10) Platelet Estimate Adequate (ADEQUATE) [place] Cells Present Stool Occult Blood Positive (NEG) Troponin I High Sensitivity 6 ng/L (4-50) Procalcitonin 0.10 ng/mL (0.00-0.10) Sodium Level 131 mmol/L (136-145) Potassium Level 3.9 mmol/L (3.5-5.1) Chloride Level 95 mmol/L (98-107) Carbon Dioxide Level 23 mmol/L (21-32) Anion Gap 13 (6-14) Blood Urea Nitrogen 19 mg/dL (7-20) Creatinine 0.9 mg/dL (0.6-1.0) Estimated GFR (Cockcroft-Gault) 60.1 BUN/Creatinine Ratio 21 (6-20) Glucose Level 176 mg/dL (70-99) Lactic Acid Level 2.6 mmol/L (0.4-2.0) Calcium Level 8.7 mg/dL (8.5-10.1) Total Bilirubin 1.0 mg/dL (0.2-1.0) Aspartate Amino Transf (AST/SGOT) 25 U/L (15-37) Alanine Aminotransferase (ALT/SGPT) 26 U/L (14-59) Alkaline Phosphatase 46 U/L (46-116) Total Protein 6.2 g/dL (6.4-8.2) Albumin 3.6 g/dL (3.4-5.0) Albumin/Globulin Ratio 1.4 (1.0-1.7) Lipase 36 U/L (73-393) Test 06/07/21 23:25 Lactic Acid Level 2.8 mmol/L (0.4-2.0) Allergies: Coded Allergies: azithromycin (Verified Allergy, Severe, Anaphylaxis, 06/07/21) diphenhydramine (Verified Allergy, Severe, Anaphylaxis, 06/07/21) erythromycin base (Verified Allergy, Severe, Anaphylaxis, 06/07/21) nitrofurantoin (Verified Allergy, Severe, Anaphylaxis, 06/07/21) sodium phosphate (Verified Allergy, Severe, Anaphylaxis, 06/07/21) vancomycin (Verified Allergy, Severe, Anaphylaxis, 08/11/16) Sulfa (Sulfonamide Antibiotics) (Verified Allergy, Intermediate, oral sores, 08/13/16) anastrozole (Verified Allergy, Intermediate, 05/16/20) clarithromycin (Verified Allergy, Intermediate, 05/16/20) levofloxacin (Verified Allergy, Intermediate, 05/16/20) moxifloxacin (Verified Allergy, Intermediate, 05/16/20) strawberry (Verified Allergy, Intermediate, 05/16/20) venom-wasp (Verified Allergy, Intermediate, 05/16/20) cyclobenzaprine (Verified Adverse Reaction, Severe, felt bed moving, felt like someone was in bed, 08/13/16) alendronate sodium (Verified Adverse Reaction, Intermediate, vision changes, 02/10/19) cefdinir (Verified Adverse Reaction, Intermediate, Diarrhea, 02/10/19) doxepin (Verified Adverse Reaction, Intermediate, dizzyness, 02/10/19) ibuprofen (Verified Adverse Reaction, Intermediate, sores, 02/10/19) letrozole (Verified Adverse Reaction, Intermediate, 08/11/16) flushing, dizziness, fatigue morphine (Verified Adverse Reaction, Intermediate, vomiting, 08/13/16) naproxen (Verified Adverse Reaction, Intermediate, sores, 02/10/19) tizanidine (Verified Adverse Reaction, Intermediate, heart palpitaions, 02/10/19) metoclopramide (Verified Adverse Reaction, Mild, ITCHY, 02/10/19) Medications: Current Medications Medications (Trade) Dose Ordered Sig/Brock Route PRN Reason Start Time Stop Time Status Last Admin Dose Admin Fentanyl Citrate (Fentanyl 2ml Vial) 25 mcg 1X STAT IV 06/07/21 17:11 06/07/21 17:19 DC 06/07/21 17:55 Sodium Chloride 500 ml @ 1,000 mls/hr Q30M IV 06/07/21 17:15 06/07/21 17:44 DC 06/07/21 17:56 Ondansetron HCl (Zofran) 4 mg 1X ONCE IVP 06/07/21 17:15 06/07/21 17:19 DC 06/07/21 17:55 Ondansetron HCl (Zofran) 4 mg 1X ONCE IVP 06/07/21 19:15 06/07/21 19:16 DC 06/07/21 19:09 Iohexol (Omnipaque 300 Mg/ml) 75 ml 1X ONCE IV 06/07/21 21:00 06/07/21 21:01 DC 06/07/21 21:00 Piperacillin Sod/ Tazobactam Sod 4.5 gm/Dextrose 100 ml @ 200 mls/hr 1X ONCE IV 4/17/22 23:00 06/07/21 23:29 DC 06/07/21 23:53 Acetaminophen (Tylenol) 1,000 mg 1X ONCE PO 06/07/21 22:45 06/07/21 22:46 DC 06/07/21 23:05 Ondansetron HCl (Zofran) 4 mg PRN Q8HRS PRN IVP NAUSEA/VOMITING 06/07/21 22:45 06/08/21 22:44 06/08/21 07:59 Sodium Chloride 1,000 ml @ 100 mls/hr 1X ONCE IV 06/08/21 06:15 06/08/21 16:14 06/08/21 06:15 Imaging: Imaging: CT A/P 06/07 IMPRESSION: Long segment wall thickening involving the descending colon which is nonspecific may be infectious or inflammatory in etiology. CT A/P 05/30 IMPRESSION: 1. Dilated common duct but similar to the prior study. 2. Normal appendix. 3. No bowel obstruction. 4. Wall thickening of the colon suggesting a colitis. 5. No small bowel obstruction. 6. No ureteral or renal calculus noted. PE: GEN: NAD HEENT: Atraumatic, PERRL LUNGS: CTAB HEART: RRR ABD: NABS, S/ND/NT EXTREMITY: No edema SKIN: No rashes, no jaundice NEURO/PSYCH: A & O 3 A/P: A/P: Right-sided abdominal pain, change in bowel habits, n/v Leukocytosis, lactic acidosis, elevated CRP, +Hemoccult Abnormal CT - long segment wall thickening involving the descending colon GERD - on H2 reny, seems not totally controlled (epigastric discomfort, bloating, early satiety) Chronic/stable dysphagia - reports past esophageal dilation w/ Dr. Portillo, eats carefully CRC screen - none S/p cholecystectomy -- Does not indicate h/o chronic constipation to me - something new within the past month. Liquid stools today and tolerating liquid diet - would observe for now on this - she also has no desire to advance her diet at this point. Try PPI instead of H2 reny for GERD. Note stool studies are ordered. DAVID ARMIJO Jun 08, 2021 10:08
[2021-06-08 11:04] LABS: BASO % 0 % (0-3); EOS % 0 % (0-3); HEMATOCRIT 36.5 % (36.0-47.0); LYMPH # 1.6 x10^3/uL (1.0-4.8); LYMPH % 14 % (24-48); MEAN CORPUSCULAR HEMOGLOBIN 31 pg (25-35); MEAN CORPUSCULAR HGB CONC 33 g/dL (31-37); MEAN CORPUSCULAR VOLUME 95 fL (79-100); MONO # 1.5 x10^3/uL (0.0-1.1); MONO % 13 % (0-9); NEUT # 8.4 x10^3/uL (1.8-7.7); NEUT % 72 % (31-73); PLATELET COUNT 230 x10^3/uL (140-400); RED BLOOD COUNT 3.85 x10^6/uL (3.50-5.40); RED CELL DISTRIBUTION WIDTH 13.9 % (11.5-14.5); WHITE BLOOD COUNT 11.5 x10^3/uL (4.0-11.0)
[2021-06-08 11:30] LABS: ALBUMIN 3.2 g/dL (3.4-5.0); ALBUMIN/GLOBULIN RATIO 1.2 (1.0-1.7); CALCIUM 8.3 mg/dL (8.5-10.1); CREATININE 1.1 mg/dL (0.6-1.0); GFR 47.7; POTASSIUM 3.7 mmol/L (3.5-5.1); TOTAL PROTEIN 5.9 g/dL (6.4-8.2)
[2021-06-08] MEDS ORDERED: CALCIUM CARBONATE 500 MG TAB.CHEW PO PRN ×2 (13:00→15:15)
[2021-06-08] MEDS: IV NORMAL SALINE 1000ML BAG 1,000 ML IV SCH (14:28)
[2021-06-08] MEDS ORDERED: ONDANSETRON PF 4 MG/2 ML VIAL. IVP PRN ×2 (14:30→15:15)
--- NOTE | 2021-06-08 15:14 | PDOC1 ---
History and Physical Date of Admission Date of Admission DATE: 06/08/21 TIME: 14:53 Identification/Chief Complaint Chief Complaint Constipation Source Source: Patient History of Present Illness History of Present Illness Patient is an 80-year-old female with past medical history A. fib on aspirin, hypothyroidism, breast cancer, who presents to the ED with complaints of constipation and abdominal pain. She was here on 05/29 with similar complaints of abdominal pain and constipation. Since that time she reports increasing abdominal pain. She admits to taking Colace and MiraLAX without improvement, and even reports "passing out" from abdominal pain. She notes a history of diarrhea and constipation for over 2 years, but states over the past month she has been dealing with predominantly constipation. Labs admission showed WBC 19.1, sodium 131, BUN 19, creatinine 0.1, BUN/creatinine ratio 21, CBG 176, lactic acid 2.6. Stool occult blood was positive. CT abdomen/pelvis on admission was concerning for descending colitis. She will be admitted for further medical management. Past Medical History Cardiovascular: AFIB Pulmonary: Bronchitis CENTRAL NERVOUS SYSTEM: Other GI: GERD Heme/Onc: No pertinent hx, Cancer Hepatobiliary: No pertinent hx Psych: Anxiety Musculoskeletal: Osteoarthritis Rheumatologic: No pertinent hx Infectious disease: No pertinent hx Renal/: No pertinent hx Endocrine: Hypothyroidism Past Surgical History Past Surgical History: Cholecystectomy, Mastectomy, Tubal Ligation, Tonsillectomy, Other Family History Family History: Hypertension Social History Smoke: Quit ALCOHOL: none Drugs: None Current Medications Current Medications Current Medications Fentanyl Citrate (Fentanyl 2ml Vial) 25 mcg 1X STAT IV Last administered on 06/07/21at 17:55; Start 06/07/21 at 17:11; Stop 06/07/21 at 17:19; Status DC Sodium Chloride 500 ml @ 1,000 mls/hr Q30M IV Last administered on 06/07/21at 17:56; Start 06/07/21 at 17:15; Stop 06/07/21 at 17:44; Status DC Ondansetron HCl (Zofran) 4 mg 1X ONCE IVP Last administered on 06/07/21at 17:55; Start 06/07/21 at 17:15; Stop 06/07/21 at 17:19; Status DC Ondansetron HCl (Zofran) 4 mg 1X ONCE IVP Last administered on 06/07/21at 19:09; Start 06/07/21 at 19:15; Stop 06/07/21 at 19:16; Status DC Iohexol (Omnipaque 300 Mg/ml) 75 ml 1X ONCE IV Last administered on 06/07/21at 21:00; Start 06/07/21 at 21:00; Stop 06/07/21 at 21:01; Status DC Info (CONTRAST GIVEN -- Rx MONITORING) 1 each PRN DAILY PRN MC SEE COMMENTS; Start 06/07/21 at 21:00; Stop 06/09/21 at 20:59 Piperacillin Sod/ Tazobactam Sod 4.5 gm/Dextrose 100 ml @ 200 mls/hr 1X ONCE IV Last administered on 06/07/21at 23:53; Start 06/07/21 at 23:00; Stop 06/07/21 at 23:29; Status DC Acetaminophen (Tylenol) 1,000 mg 1X ONCE PO Last administered on 06/07/21at 23:05; Start 06/07/21 at 22:45; Stop 06/07/21 at 22:46; Status DC Ondansetron HCl (Zofran) 4 mg PRN Q8HRS PRN IVP NAUSEA/VOMITING Last administered on 06/08/21at 07:59; Start 06/07/21 at 22:45; Stop 06/08/21 at 14:23; Status DC Fentanyl Citrate (Fentanyl 2ml Vial) 25 mcg PRN Q1HR PRN IVP PAIN; Start 06/07/21 at 22:45; Stop 06/08/21 at 22:44 Sodium Chloride 1,000 ml @ 100 mls/hr 1X ONCE IV Last administered on 06/08/21at 06:15; Start 06/08/21 at 06:15; Stop 06/08/21 at 16:14 Famotidine (Pepcid) 40 mg HS PO ; Start 06/08/21 at 21:00; Stop 06/08/21 at 12:48; Status DC Levothyroxine Sodium (Synthroid) 75 mcg DAILYAC PO ; Start 06/09/21 at 07:30 Lorazepam (Ativan) 0.5 mg PRN DAILY PRN PO ANXIETY / AGITATION; Start 06/08/21 at 12:15 Metoprolol Tartrate (Lopressor) 25 mg BID PO ; Start 06/08/21 at 21:00 Non-Formulary Medication (Cholecalciferol (Vitamin D3) (Vitamin D3)) 50 mcg DAILY PO ; Start 06/09/21 at 09:00; Status UNV Vitamin D (Vitamin D3) 2,000 unit DAILY PO ; Start 06/09/21 at 09:00 Pantoprazole Sodium (Protonix) 40 mg DAILYAC PO ; Start 06/09/21 at 07:30 Calcium Carbonate/ Glycine (Tums) 500 mg PRN AFTMEALHC PRN PO INDIGESTION; Start 06/08/21 at 13:00 Ondansetron HCl (Zofran) 4 mg PRN Q6HRS PRN IVP NAUSEA/VOMITING Last administered on 06/08/21at 14:28; Start 06/08/21 at 14:30; Stop 06/09/21 at 14:29 Sodium Chloride 1,000 ml @ 75 mls/hr [id number] IV Last administered on 06/08/21at 14:28; Start 06/08/21 at 14:30 Active Scripts Active Ondansetron Odt (Ondansetron) 4 Mg Tab.rapdis 1 Tab PO PRN Q6-8HRS PRN Percocet 5-325 Mg Tablet (Oxycodone/Acetaminophen) 1 Each Tablet 1 Tab PO PRN Q6HRS PRN 10 Days Metoprolol Tartrate 25 Mg Tablet 25 Mg PO BID 30 Days Ondansetron Odt (Ondansetron) 4 Mg Tab.rapdis 4 Mg PO PRN Q6HRS PRN 30 Days Reported Prednisone 20 Mg Tablet 40 Mg PO DAILY Flonase Allergy Relief (Fluticasone Propionate) 9.9 Ml [place].susp 2 Sprays NS DAILY Ativan (Lorazepam) 0.5 Mg Tablet 0.5 Mg PO PRN DAILY PRN Probiotic (Lactobacillus Acidophilus) 1 Each Capsule 1 Cap PO DAILY 10 Days Vitamin D3 (Cholecalciferol (Vitamin D3)) 50 Mcg Capsule 50 Mcg PO DAILY B12 Active (Mecobalamin) 1,000 Mcg Tab.chew 500 Mcg PO DAILY Robaxin-750 (Methocarbamol) 750 Mg Tablet 500 Mg PO HS 30 Days Lidocaine PATCH (Lidocaine) 1 Each Adh..patch 1 Each TP DAILY REMOVE AFTER 12 HOURS Famotidine 20 Mg Tablet 40 Mg PO HS Tylenol (Acetaminophen) 325 Mg Tablet 650 Mg PO PRN Q6HRS PRN Synthroid (Levothyroxine Sodium) 75 Mcg Tablet 75 Mcg PO DAILYAC Allergies Allergies: Coded Allergies: azithromycin (Verified Allergy, Severe, Anaphylaxis, 06/07/21) diphenhydramine (Verified Allergy, Severe, Anaphylaxis, 06/07/21) erythromycin base (Verified Allergy, Severe, Anaphylaxis, 06/07/21) nitrofurantoin (Verified Allergy, Severe, Anaphylaxis, 06/07/21) sodium phosphate (Verified Allergy, Severe, Anaphylaxis, 06/07/21) vancomycin (Verified Allergy, Severe, Anaphylaxis, 08/11/16) Sulfa (Sulfonamide Antibiotics) (Verified Allergy, Intermediate, oral sores, 08/13/16) anastrozole (Verified Allergy, Intermediate, 05/16/20) clarithromycin (Verified Allergy, Intermediate, 05/16/20) levofloxacin (Verified Allergy, Intermediate, 05/16/20) moxifloxacin (Verified Allergy, Intermediate, 05/16/20) strawberry (Verified Allergy, Intermediate, 05/16/20) venom-wasp (Verified Allergy, Intermediate, 05/16/20) cyclobenzaprine (Verified Adverse Reaction, Severe, felt bed moving, felt like someone was in bed, 08/13/16) alendronate sodium (Verified Adverse Reaction, Intermediate, vision changes, 02/10/19) cefdinir (Verified Adverse Reaction, Intermediate, Diarrhea, 02/10/19) doxepin (Verified Adverse Reaction, Intermediate, dizzyness, 02/10/19) ibuprofen (Verified Adverse Reaction, Intermediate, sores, 02/10/19) letrozole (Verified Adverse Reaction, Intermediate, 08/11/16) flushing, dizziness, fatigue morphine (Verified Adverse Reaction, Intermediate, vomiting, 08/13/16) naproxen (Verified Adverse Reaction, Intermediate, sores, 02/10/19) tizanidine (Verified Adverse Reaction, Intermediate, heart palpitaions, 02/10/19) metoclopramide (Verified Adverse Reaction, Mild, ITCHY, 02/10/19) ROS Review of System GENERAL: No history of weight change, weakness or fevers. SKIN: No bruising, hair changes or rashes. EYES: No blurred, double or loss of vision. NOSE AND THROAT: No history of nosebleeds, hoarseness or sore throat. HEART: Denies chest pain, denies palpitations. LUNGS: Denies cough, hemoptysis, wheezing or shortness of breath. GASTROINTESTINAL: Constipation, abdominal pain. Denies vomiting. GENITOURINARY: Denies dysuria, frequency, urgency, hematuria. NEUROLOGIC: Denies history of numbness, tingling, tremor or weakness. PSYCHIATRIC: Denies anxiety, denies depression. ENDOCRINE: No history of heat or cold intolerance, polyuria or polydipsia. EXTREMITIES: Denies muscle weakness, joint pain, pain on walking or stiffness. Physical Exam Physical Exam General: Alert, Oriented X3, Cooperative, No acute distress HEENT: PERRLA, EOMI Lungs: Clear to auscultation, Normal air movement Heart: RRR, no murmurs Cardiovascular: S1, S2 Abdomen: Hypoactive bowel sounds, mild distention, left lower quadrant tenderness. Extremities: No clubbing, No cyanosis Skin: No rashes, No significant lesion Neuro: Normal speech, Normal tone, Sensation intact Psych/Mental Status: Mental status NL, Mood NL Vitals Vitals Vital Signs Date Time Temp Pulse Resp B/P (MAP) Pulse Ox O2 Delivery O2 Flow Rate FiO2 06/08/21 10:45 98.3 67 18 134/58 (83) 97 Room Air 98.3 Labs Labs Laboratory Tests Test 06/07/21 17:59 06/07/21 19:00 06/07/21 19:25 06/07/21 20:20 White Blood Count 19.1 x10^3/uL (4.0-11.0) Red Blood Count 4.32 x10^6/uL (3.50-5.40) Hemoglobin 13.3 g/dL (12.0-15.5) Hematocrit 40.8 % (36.0-47.0) Mean Corpuscular Volume 95 fL (79-100) Mean Corpuscular Hemoglobin 31 pg (25-35) Mean Corpuscular Hemoglobin Concent 33 g/dL (31-37) Red Cell Distribution Width 13.8 % (11.5-14.5) Platelet Count 281 x10^3/uL (140-400) Neutrophils (%) (Auto) 88 % (31-73) Lymphocytes (%) (Auto) 4 % (24-48) Monocytes (%) (Auto) 8 % (0-9) Eosinophils (%) (Auto) 1 % (0-3) Basophils (%) (Auto) 0 % (0-3) Neutrophils # (Auto) 16.7 x10^3/uL (1.8-7.7) Lymphocytes # (Auto) 0.7 x10^3/uL (1.0-4.8) Monocytes # (Auto) 1.6 x10^3/uL (0.0-1.1) Eosinophils # (Auto) 0.1 x10^3/uL (0.0-0.7) Basophils # (Auto) 0.0 x10^3/uL (0.0-0.2) Segmented Neutrophils % 91 % (35-66) Lymphocytes % 4 % (24-48) Monocytes % 5 % (0-10) Platelet Estimate Adequate (ADEQUATE) [place] Cells Present Stool Occult Blood Positive (NEG) Clostridium difficile Toxin (PCR) Positive (NEGATIVE) Troponin I High Sensitivity 6 ng/L (4-50) Procalcitonin 0.10 ng/mL (0.00-0.10) Sodium Level 131 mmol/L (136-145) Potassium Level 3.9 mmol/L (3.5-5.1) Chloride Level 95 mmol/L (98-107) Carbon Dioxide Level 23 mmol/L (21-32) Anion Gap 13 (6-14) Blood Urea Nitrogen 19 mg/dL (7-20) Creatinine 0.9 mg/dL (0.6-1.0) Estimated GFR (Cockcroft-Gault) 60.1 BUN/Creatinine Ratio 21 (6-20) Glucose Level 176 mg/dL (70-99) Lactic Acid Level 2.6 mmol/L (0.4-2.0) Calcium Level 8.7 mg/dL (8.5-10.1) Total Bilirubin 1.0 mg/dL (0.2-1.0) Aspartate Amino Transf (AST/SGOT) 25 U/L (15-37) Alanine Aminotransferase (ALT/SGPT) 26 U/L (14-59) Alkaline Phosphatase 46 U/L (46-116) Total Protein 6.2 g/dL (6.4-8.2) Albumin 3.6 g/dL (3.4-5.0) Albumin/Globulin Ratio 1.4 (1.0-1.7) Lipase 36 U/L (73-393) Test 06/07/21 23:25 06/08/21 10:50 Lactic Acid Level 2.8 mmol/L (0.4-2.0) White Blood Count 11.5 x10^3/uL (4.0-11.0) Red Blood Count 3.85 x10^6/uL (3.50-5.40) Hemoglobin 12.0 g/dL (12.0-15.5) Hematocrit 36.5 % (36.0-47.0) Mean Corpuscular Volume 95 fL (79-100) Mean Corpuscular Hemoglobin 31 pg (25-35) Mean Corpuscular Hemoglobin Concent 33 g/dL (31-37) Red Cell Distribution Width 13.9 % (11.5-14.5) Platelet Count 230 x10^3/uL (140-400) Neutrophils (%) (Auto) 72 % (31-73) Lymphocytes (%) (Auto) 14 % (24-48) Monocytes (%) (Auto) 13 % (0-9) Eosinophils (%) (Auto) 0 % (0-3) Basophils (%) (Auto) 0 % (0-3) Neutrophils # (Auto) 8.4 x10^3/uL (1.8-7.7) Lymphocytes # (Auto) 1.6 x10^3/uL (1.0-4.8) Monocytes # (Auto) 1.5 x10^3/uL (0.0-1.1) Eosinophils # (Auto) 0.0 x10^3/uL (0.0-0.7) Basophils # (Auto) 0.0 x10^3/uL (0.0-0.2) Sodium Level 137 mmol/L (136-145) Potassium Level 3.7 mmol/L (3.5-5.1) Chloride Level 100 mmol/L (98-107) Carbon Dioxide Level 28 mmol/L (21-32) Anion Gap 9 (6-14) Blood Urea Nitrogen 11 mg/dL (7-20) Creatinine 1.1 mg/dL (0.6-1.0) Estimated GFR (Cockcroft-Gault) 47.7 BUN/Creatinine Ratio 10 (6-20) Glucose Level 135 mg/dL (70-99) Calcium Level 8.3 mg/dL (8.5-10.1) Total Bilirubin 1.0 mg/dL (0.2-1.0) Aspartate Amino Transf (AST/SGOT) 16 U/L (15-37) Alanine Aminotransferase (ALT/SGPT) 21 U/L (14-59) Alkaline Phosphatase 42 U/L (46-116) C-Reactive Protein, Quantitative 60.3 mg/L (0-3.3) Total Protein 5.9 g/dL (6.4-8.2) Albumin 3.2 g/dL (3.4-5.0) Albumin/Globulin Ratio 1.2 (1.0-1.7) Laboratory Tests Test 06/07/21 17:59 06/07/21 19:00 06/07/21 19:25 06/07/21 20:20 White Blood Count 19.1 x10^3/uL (4.0-11.0) Red Blood Count 4.32 x10^6/uL (3.50-5.40) Hemoglobin 13.3 g/dL (12.0-15.5) Hematocrit 40.8 % (36.0-47.0) Mean Corpuscular Volume 95 fL (79-100) Mean Corpuscular Hemoglobin 31 pg (25-35) Mean Corpuscular Hemoglobin Concent 33 g/dL (31-37) Red Cell Distribution Width 13.8 % (11.5-14.5) Platelet Count 281 x10^3/uL (140-400) Neutrophils (%) (Auto) 88 % (31-73) Lymphocytes (%) (Auto) 4 % (24-48) Monocytes (%) (Auto) 8 % (0-9) Eosinophils (%) (Auto) 1 % (0-3) Basophils (%) (Auto) 0 % (0-3) Neutrophils # (Auto) 16.7 x10^3/uL (1.8-7.7) Lymphocytes # (Auto) 0.7 x10^3/uL (1.0-4.8) Monocytes # (Auto) 1.6 x10^3/uL (0.0-1.1) Eosinophils # (Auto) 0.1 x10^3/uL (0.0-0.7) Basophils # (Auto) 0.0 x10^3/uL (0.0-0.2) Segmented Neutrophils % 91 % (35-66) Lymphocytes % 4 % (24-48) Monocytes % 5 % (0-10) Platelet Estimate Adequate (ADEQUATE) Isabella Cells Present Stool Occult Blood Positive (NEG) Clostridium difficile Toxin (PCR) Positive (NEGATIVE) Troponin I High Sensitivity 6 ng/L (4-50) Procalcitonin 0.10 ng/mL (0.00-0.10) Sodium Level 131 mmol/L (136-145) Potassium Level 3.9 mmol/L (3.5-5.1) Chloride Level 95 mmol/L (98-107) Carbon Dioxide Level 23 mmol/L (21-32) Anion Gap 13 (6-14) Blood Urea Nitrogen 19 mg/dL (7-20) Creatinine 0.9 mg/dL (0.6-1.0) Estimated GFR (Cockcroft-Gault) 60.1 BUN/Creatinine Ratio 21 (6-20) Glucose Level 176 mg/dL (70-99) Lactic Acid Level 2.6 mmol/L (0.4-2.0) Calcium Level 8.7 mg/dL (8.5-10.1) Total Bilirubin 1.0 mg/dL (0.2-1.0) Aspartate Amino Transf (AST/SGOT) 25 U/L (15-37) Alanine Aminotransferase (ALT/SGPT) 26 U/L (14-59) Alkaline Phosphatase 46 U/L (46-116) Total Protein 6.2 g/dL (6.4-8.2) Albumin 3.6 g/dL (3.4-5.0) Albumin/Globulin Ratio 1.4 (1.0-1.7) Lipase 36 U/L (73-393) Test 06/07/21 23:25 06/08/21 10:50 Lactic Acid Level 2.8 mmol/L (0.4-2.0) White Blood Count 11.5 x10^3/uL (4.0-11.0) Red Blood Count 3.85 x10^6/uL (3.50-5.40) Hemoglobin 12.0 g/dL (12.0-15.5) Hematocrit 36.5 % (36.0-47.0) Mean Corpuscular Volume 95 fL (79-100) Mean Corpuscular Hemoglobin 31 pg (25-35) Mean Corpuscular Hemoglobin Concent 33 g/dL (31-37) Red Cell Distribution Width 13.9 % (11.5-14.5) Platelet Count 230 x10^3/uL (140-400) Neutrophils (%) (Auto) 72 % (31-73) Lymphocytes (%) (Auto) 14 % (24-48) Monocytes (%) (Auto) 13 % (0-9) Eosinophils (%) (Auto) 0 % (0-3) Basophils (%) (Auto) 0 % (0-3) Neutrophils # (Auto) 8.4 x10^3/uL (1.8-7.7) Lymphocytes # (Auto) 1.6 x10^3/uL (1.0-4.8) Monocytes # (Auto) 1.5 x10^3/uL (0.0-1.1) Eosinophils # (Auto) 0.0 x10^3/uL (0.0-0.7) Basophils # (Auto) 0.0 x10^3/uL (0.0-0.2) Sodium Level 137 mmol/L (136-145) Potassium Level 3.7 mmol/L (3.5-5.1) Chloride Level 100 mmol/L (98-107) Carbon Dioxide Level 28 mmol/L (21-32) Anion Gap 9 (6-14) Blood Urea Nitrogen 11 mg/dL (7-20) Creatinine 1.1 mg/dL (0.6-1.0) Estimated GFR (Cockcroft-Gault) 47.7 BUN/Creatinine Ratio 10 (6-20) Glucose Level 135 mg/dL (70-99) Calcium Level 8.3 mg/dL (8.5-10.1) Total Bilirubin 1.0 mg/dL (0.2-1.0) Aspartate Amino Transf (AST/SGOT) 16 U/L (15-37) Alanine Aminotransferase (ALT/SGPT) 21 U/L (14-59) Alkaline Phosphatase 42 U/L (46-116) C-Reactive Protein, Quantitative 60.3 mg/L (0-3.3) Total Protein 5.9 g/dL (6.4-8.2) Albumin 3.2 g/dL (3.4-5.0) Albumin/Globulin Ratio 1.2 (1.0-1.7) Images Images PATIENT: ULI MILLER ACCOUNT: [id number] : 1940 LOCATION: ER AGE: 80 SEX: F EXAM STATUS: REG ER ORD. PHYSICIAN: AISSATOU HARRIS MD REASON: Abdominal pain PROCEDURE: CT ABD PELV W/ IV CONTRST ONLY Exam: CT of abdomen and pelvis with contrast INDICATION: Abdominal pain TECHNIQUE: Sequential axial images through the abdomen and pelvis obtained fo llowing the administration of 75 mL of Isovue-370 IV contrast. Sagittal and coronal reformatted images were reconstructed from the axial data and reviewed. Exposure: One or more of the following in the visualized dose reduction techniques were utilized for this examination: 1. Automated exposure control 2. Adjustment of the MA and/or KV according to patient size 3. Use of iterative of reconstructive technique Comparisons: 05/30/2021 FINDINGS: Heart size is normal. No pericardial effusion. Visualized lung bases are clear. No pleural effusion. Liver, spleen, pancreas, and adrenals are unremarkable. Gallbladder is absent. No perinephric inflammation or hydronephrosis. No renal or ureteral calculi are identified. Bladder is partially distended and not well evaluated. Uterus is not enlarged. No abnormal adnexal mass. There is a long segment of mucosal hyperenhancement and adjacent fat stranding surrounding the colon. Small bowel is unremarkable. No free intra-abdominal air or fluid. No obstruction. Abdominal aorta has normal course and caliber. Abdominal vasculature is patent. No enlarged intra-abdominal lymph nodes are identified. No suspicious osseous lesions or acute fractures. IMPRESSION: Long segment wall thickening involving the descending colon which is nonspecific may be infectious or inflammatory in etiology. Electronically signed by: Shalini Miranda MD (06/07/2021 9:47 PM) [facility] VTE Prophylaxis Ordered VTE Prophylaxis Devices: No VTE Pharmacological Prophylaxi: Yes Assessment/Plan Assessment/Plan Mixed IBS Leukocytosis Colitis Dehydration Plan: Consultation placed to GI Patient admits that she did a bowel movement today, but this reportedly the first several days. Will schedule MiraLAX daily and docusate twice daily. If no improvement she may benefit from Amitiza twice daily. Discussed with pharmacy we do not have Linzess. Her CRP came back 60.3. We will continue empiric Zosyn. IV fluids TSH pending Positive fecal occult blood test, likely diverticulosis or hemorrhoids. Resume home medications FEN - Cardiac diet PPX - Heparin FULL CODE/surrogate decision-maker is her (Silvio Miller) Dispo - inpatient for above Justifications for Admission Other Justification ANUP PASTRANA MD Jun 08, 2021 15:14
[2021-06-08] MEDS ORDERED: ZOLPIDEM 5 MG TABLET. PO PRN (15:15)
[2021-06-08] MEDS ORDERED: MAGNESIUM HYDROXIDE 2,400 MG/30 ML ORAL.SUSP. PO PRN (15:15)
[2021-06-08] MEDS ORDERED: MAG HYDROX/ALUMINUM HYD/SIMETH 30 ML ORAL.SUSP PO PRN (15:15)
[2021-06-08] MEDS: POLYETHYLENE GLYCOL 3350 17 GM PACKET. PO SCH (15:20)
[2021-06-08] MEDS ORDERED: METO-239 PO (15:36)
[2021-06-08] MEDS ORDERED: diphenhydrAMINE 50 MG/ML VIAL IVP PRN (17:00)
[2021-06-08] MEDS: LORazepam 0.5 MG TABLET PO PRN (17:03)
--- NOTE | 2021-06-08 17:17 | CONS ---
DATE OF CONSULTATION: 06/08/2021 REFERRING PHYSICIAN: Dr. Hodge. REASON FOR CONSULTATION: Clostridium difficile colitis. HISTORY OF PRESENT ILLNESS: An 80-year-old female presented to the ER with complaints of abdominal pain. She had been seen in ER on 05/30 for abdominal pain and constipation. The patient is not very clear. There was reported diarrhea at that time. The patient was seen by her primary care last Tuesday, who prescribed Flagyl and prednisone. On Tuesday, she was also advised by her PCP to take MiraLax and Dulcolax. She returned to the ER yesterday due to worsening abdominal pain and almost passed out. The patient had leukocytosis, lactic acidosis. CT abdomen and pelvis revealed a long segment of wall thickening involving the descending colon, which is nonspecific, may be infectious or inflammatory in etiology. C. diff returned positive. Enteric panel is negative. The patient was given famotidine and Zosyn one-time dose. ID consultation has been requested for antibiotic management of Clostridium difficile colitis as the patient has anaphylactic reaction to vancomycin. Today, the patient states she is continuing to have liquid stool constantly. She continues to have abdominal pain. Feels bloated, feels full, has not had a full meal since last Tuesday, continues to feel weak. PAST MEDICAL HISTORY: AFib, bronchitis, breast cancer, anxiety, allergic rhinitis, basal cell carcinoma, hypothyroidism. PAST SURGICAL HISTORY: Cholecystectomy, left mastectomy, status post chemoradiation for breast cancer, tubal ligation, tonsillectomy, venous ablation, hematoma evacuation. SOCIAL HISTORY: Lives with . No alcohol, no drugs. Has 3 children. One son passed of complications of colon cancer and sepsis. REVIEW OF SYSTEMS: Negative except for above in HPI. Continues to have generalized weakness. Denies any fevers, headache, sore throat, shortness of breath or cough. CURRENT MEDICATIONS: Zosyn one-time dose. Other medications reviewed in medication list. ALLERGIES: NUMEROUS INCLUDING AZITHROMYCIN, DIPHENHYDRAMINE, ERYTHROMYCIN BASE, NITROFURANTOIN, SODIUM PHOSPHATE, VANCOMYCIN, ANAPHYLAXIS; SULFA, ORAL SORES; ARIMIDEX, CLARITHROMYCIN, LEVOFLOXACIN, MOXIFLOXACIN, STRAWBERRY, VENOM WASP, CYCLOBENZAPRINE, CEFDINIR CAUSING DIARRHEA; DOXEPIN, DIZZINESS; IBUPROFEN, SORES; LETROZOLE, MORPHINE, NAPROXEN, TIZANIDINE, METOCLOPRAMIDE. PHYSICAL EXAMINATION: VITAL SIGNS: Temperature 98.8, pulse 78, respiratory rate 18, blood pressure 127/57, oxygen saturation 94% on room air. GENERAL: Anxious, alert, oriented x 3 female, lying in bed comfortably, appears tired, in no acute distress. HEENT: Normocephalic, atraumatic. Anicteric. No thrush. Oral mucosa dry. NECK: Supple, no JVD. LUNGS: Clear bilaterally. HEART: S1, S2. No gallops or murmurs. ABDOMEN: Soft, mildly distended, nontender, no rebound or guarding. EXTREMITIES: No edema, no cyanosis. DERMATOLOGIC: Warm, dry, no generalized rash. NEUROLOGIC: Alert, oriented x 3, grossly nonfocal. PSYCHIATRIC: Somewhat anxious, but otherwise calm, cooperative, pleasant. LABORATORY DATA: WBC 11.5, was 19.1, hemoglobin 12.0, hematocrit 36.5, platelets 230. Sodium 137, potassium 3.7, chloride 100, bicarbonate 28, BUN 11, creatinine 1.1, glucose 47. Lactate yesterday was 2.8. C-reactive protein 60.3, albumin 3.2, procalcitonin was 0.10. UA shows small leukocyte esterase, wbc's 5-10. Stool occult blood positive. Enteric panel negative. C. diff positive. IMPRESSION: 1. Abdominal pain, nausea, vomiting, alternating constipation and diarrhea with lactic acidosis. 2. Clostridium difficile positive with liquid stools. 3. Leukocytosis. 4. Fecal occult blood positive. 5. Abnormal CT abdomen with long segment of wall thickening involving the descending colon. 6. Anxiety. 7. Atrial fibrillation. 8. MULTIPLE ALLERGIES INCLUDING VANCOMYCIN TO ANAPHYLAXIS. RECOMMENDATIONS: 1. We discussed about treatment for C. difficile colitis with p.o. vancomycin, which is not typically absorbed through the intestinal lumen. The patient is adamantly refusing trial with po vanco due to history of anaphylaxis with IV vancomycin. 2. Next choice would be Dificid though has cross reactivity with macrolides per d/w Pharmacy. No other choice, IV flagyl as last resort for this pt 3. Avoid stool softners. s/p One dose of Zosyn 4. Monitor closely. 5. Monitor labs and cultures. 6. Continue supportive care. Thank you for allowing me to participate in this patient's care. If you have any questions, do not hesitate to contact me. Discussed with nursing staff. Discussed with pharmacy. LANCE DR: Clayton TID: [id number] SHANTELLED
[2021-06-08] MEDS: DOCUSATE SODIUM 100 MG CAPSULE. PO SCH (20:02)
[2021-06-08] MEDS ORDERED: FAMOTIDINE 20 MG TABLET. PO SCH (21:00)
[2021-06-08] MEDS ORDERED: FIDAXOMICIN 200 MG TABLET PO SCH (21:00)
[2021-06-08] MEDS: METOPROLOL TART IMMED RELEASE 25 MG TABLET. PO SCH (21:17)
[2021-06-08] MEDS: HEPARIN for SUB-Q USE 5,000 UNIT/ML VIAL. SQ SCH (21:35)
[2021-06-08] MEDS: ACETAMINOPHEN 325 MG TABLET. PO PRN (22:57)
[2021-06-08 23:39] LABS: BACTERIA,URINE 0 /HPF (0-FEW)
[2021-06-09] MEDS: IV NORMAL SALINE 1000ML BAG 1,000 ML IV SCH ×2 (04:23→14:10)
[2021-06-09 06:13] LABS: BASO % 0 % (0-3); EOS # 0.1 x10^3/uL (0.0-0.7); EOS % 2 % (0-3); HEMATOCRIT 32.9 % (36.0-47.0); LYMPH # 1.8 x10^3/uL (1.0-4.8); LYMPH % 20 % (24-48); MEAN CORPUSCULAR HEMOGLOBIN 32 pg (25-35); MEAN CORPUSCULAR HGB CONC 34 g/dL (31-37); MEAN CORPUSCULAR VOLUME 95 fL (79-100); MONO # 0.9 x10^3/uL (0.0-1.1); MONO % 10 % (0-9); NEUT % 68 % (31-73); PLATELET COUNT 200 x10^3/uL (140-400); RED BLOOD COUNT 3.46 x10^6/uL (3.50-5.40); RED CELL DISTRIBUTION WIDTH 14.1 % (11.5-14.5); WHITE BLOOD COUNT 8.9 x10^3/uL (4.0-11.0)
[2021-06-09 06:18] LABS: CALCIUM 7.9 mg/dL (8.5-10.1); CREATININE 0.9 mg/dL (0.6-1.0); GFR 60.1; POTASSIUM 3.1 mmol/L (3.5-5.1)
[2021-06-09 07:00] VITALS: BP 127/58
[2021-06-09] MEDS: PANTOPRAZOLE 40 MG TABLET.DR. PO SCH (08:22)
[2021-06-09] MEDS: CHOLECALCIFEROL (VITAMIN D3) 1,000 UNIT TABLET PO SCH (08:22)
[2021-06-09] MEDS: METOPROLOL TART IMMED RELEASE 25 MG TABLET. PO SCH ×2 (08:23→20:30)
[2021-06-09] MEDS: DOCUSATE SODIUM 100 MG CAPSULE. PO SCH (08:23)
[2021-06-09] MEDS: LEVOTHYROXINE 75 MCG TABLET PO SCH (08:23)
[2021-06-09] MEDS: POLYETHYLENE GLYCOL 3350 17 GM PACKET. PO SCH (08:24)
[2021-06-09] MEDS: HEPARIN for SUB-Q USE 5,000 UNIT/ML VIAL. SQ SCH ×2 (08:25→20:37)
[2021-06-09] MEDS ORDERED: CHOLECALCIFEROL 50 MCG PO SCH (09:00)
--- NOTE | 2021-06-09 09:36 | PDOC ---
Date of Service: DATE: 06/09/21 TIME: 09:32 Subjective: Subjective: "Oh I feel so much better!" Less diarrhea, less pain. Hungry. Objective: Vital Signs: Vital Signs Date Time Temp Pulse Resp B/P (MAP) Pulse Ox O2 Delivery O2 Flow Rate FiO2 06/09/21 08:23 73 127/58 06/09/21 07:00 98.8 18 94 Room Air 98.8 Labs: Laboratory Tests Test 06/08/21 10:50 06/08/21 16:13 06/08/21 23:10 06/09/21 05:50 White Blood Count 11.5 x10^3/uL 8.9 x10^3/uL Red Blood Count 3.85 x10^6/uL 3.46 x10^6/uL Hemoglobin 12.0 g/dL 11.0 g/dL Hematocrit 36.5 % 32.9 % Mean Corpuscular Volume 95 fL 95 fL Mean Corpuscular Hemoglobin 31 pg 32 pg Mean Corpuscular Hemoglobin Concent 33 g/dL 34 g/dL Red Cell Distribution Width 13.9 % 14.1 % Platelet Count 230 x10^3/uL 200 x10^3/uL Neutrophils (%) (Auto) 72 % 68 % Lymphocytes (%) (Auto) 14 % 20 % Monocytes (%) (Auto) 13 % 10 % Eosinophils (%) (Auto) 0 % 2 % Basophils (%) (Auto) 0 % 0 % Neutrophils # (Auto) 8.4 x10^3/uL 6.0 x10^3/uL Lymphocytes # (Auto) 1.6 x10^3/uL 1.8 x10^3/uL Monocytes # (Auto) 1.5 x10^3/uL 0.9 x10^3/uL Eosinophils # (Auto) 0.0 x10^3/uL 0.1 x10^3/uL Basophils # (Auto) 0.0 x10^3/uL 0.0 x10^3/uL Sodium Level 137 mmol/L 137 mmol/L Potassium Level 3.7 mmol/L 3.1 mmol/L Chloride Level 100 mmol/L 103 mmol/L Carbon Dioxide Level 28 mmol/L 25 mmol/L Anion Gap 9 9 Blood Urea Nitrogen 11 mg/dL 4 mg/dL Creatinine 1.1 mg/dL 0.9 mg/dL Estimated GFR (Cockcroft-Gault) 47.7 60.1 BUN/Creatinine Ratio 10 Glucose Level 135 mg/dL 140 mg/dL Calcium Level 8.3 mg/dL 7.9 mg/dL Total Bilirubin 1.0 mg/dL Aspartate Amino Transf (AST/SGOT) 16 U/L Alanine Aminotransferase (ALT/SGPT) 21 U/L Alkaline Phosphatase 42 U/L C-Reactive Protein, Quantitative 60.3 mg/L Total Protein 5.9 g/dL Albumin 3.2 g/dL Albumin/Globulin Ratio 1.2 Thyroid Stimulating Hormone (TSH) 1.785 uIU/mL Urine Collection Type Unknown Urine Color (Auto) Light yellow Urine Turbidity Clear Urine pH (Auto) 7.0 Urine Specific [place] 1.006 Urine Protein (Auto) Negative mg/dL Urine Glucose (Auto)(UA) Negative mg/dL Urine Ketones (Auto) Negative mg/dL Urine Blood (Auto) Negative Urine Nitrite (Auto) Negative Urine Bilirubin (Auto) Negative Urine Urobilinogen (Auto) Normal mg/dL Urine Leukocyte Esterase (Auto) Negative Urine RBC 1-2 /HPF Urine WBC 1-4 /HPF Urine Squamous Epithelial Cells Mod /LPF Urine Bacteria 0 /HPF PE: GEN: NAD - on commode, nursing present LUNGS: room air HEART: RRR ABD: non-distended NEURO/PSYCH: A & O 3 A/P: C Diff - on Flagyl per ID w/ vanco allergy -- Okay to advance diet as tolerated. Justicifation of Admission Dx: Justifications for Admission: Justification of Admission Dx: Yes CHF: Cardiac Arrhythmias DAVID ARMIJO Jun 09, 2021 09:36
[2021-06-09] MEDS: ACETAMINOPHEN 325 MG TABLET. PO PRN ×2 (09:43→20:44)
--- NOTE | 2021-06-09 10:52 | PDOC ---
Infectious Disease Note Subjective: Subjective Patient feels better Less abdominal pain Diarrhea is improving Appetite is improving Vital Signs: Vital Signs Vital Signs Date Time Temp Pulse Resp B/P (MAP) Pulse Ox O2 Delivery O2 Flow Rate FiO2 06/09/21 08:23 73 127/58 06/09/21 07:00 98.8 18 94 Room Air 98.8 Physical Exam: PHYSICAL EXAM GENERAL: Anxious, alert, oriented x 3 female, lying in bed comfortably, appears tired, in no acute distress. HEENT: Normocephalic, atraumatic. Anicteric. No thrush. Oral mucosa dry. NECK: Supple, no JVD. LUNGS: Clear bilaterally. HEART: S1, S2. No gallops or murmurs. ABDOMEN: Soft, mildly distended, nontender, no rebound or guarding. EXTREMITIES: No edema, no cyanosis. DERMATOLOGIC: Warm, dry, no generalized rash. NEUROLOGIC: Alert, oriented x 3, grossly nonfocal. PSYCHIATRIC: Somewhat anxious, but otherwise calm, cooperative, pleasant. Medications: Inpatient Meds: Medications reviewed. Labs: Lab Laboratory Tests Test 06/08/21 16:13 06/08/21 23:10 06/09/21 05:50 Thyroid Stimulating Hormone (TSH) 1.785 uIU/mL (0.358-3.74) Urine Collection Type Unknown Urine Color (Auto) Light yellow Urine Turbidity Clear Urine pH (Auto) 7.0 (<5.0-8.0) Urine Specific [place] 1.006 (1.000-1.030) Urine Protein (Auto) Negative mg/dL (Negative) Urine Glucose (Auto)(UA) Negative mg/dL (Negative) Urine Ketones (Auto) Negative mg/dL (Negative) Urine Blood (Auto) Negative (Negative) Urine Nitrite (Auto) Negative (Negative) Urine Bilirubin (Auto) Negative (Negative) Urine Urobilinogen (Auto) Normal mg/dL (Normal) Urine Leukocyte Esterase (Auto) Negative (Negative) Urine RBC 1-2 /HPF (0-2) Urine WBC 1-4 /HPF (0-4) Urine Squamous Epithelial Cells Mod /LPF Urine Bacteria 0 /HPF (0-FEW) White Blood Count 8.9 x10^3/uL (4.0-11.0) Red Blood Count 3.46 x10^6/uL (3.50-5.40) Hemoglobin 11.0 g/dL (12.0-15.5) Hematocrit 32.9 % (36.0-47.0) Mean Corpuscular Volume 95 fL (79-100) Mean Corpuscular Hemoglobin 32 pg (25-35) Mean Corpuscular Hemoglobin Concent 34 g/dL (31-37) Red Cell Distribution Width 14.1 % (11.5-14.5) Platelet Count 200 x10^3/uL (140-400) Neutrophils (%) (Auto) 68 % (31-73) Lymphocytes (%) (Auto) 20 % (24-48) Monocytes (%) (Auto) 10 % (0-9) Eosinophils (%) (Auto) 2 % (0-3) Basophils (%) (Auto) 0 % (0-3) Neutrophils # (Auto) 6.0 x10^3/uL (1.8-7.7) Lymphocytes # (Auto) 1.8 x10^3/uL (1.0-4.8) Monocytes # (Auto) 0.9 x10^3/uL (0.0-1.1) Eosinophils # (Auto) 0.1 x10^3/uL (0.0-0.7) Basophils # (Auto) 0.0 x10^3/uL (0.0-0.2) Sodium Level 137 mmol/L (136-145) Potassium Level 3.1 mmol/L (3.5-5.1) Chloride Level 103 mmol/L (98-107) Carbon Dioxide Level 25 mmol/L (21-32) Anion Gap 9 (6-14) Blood Urea Nitrogen 4 mg/dL (7-20) Creatinine 0.9 mg/dL (0.6-1.0) Estimated GFR (Cockcroft-Gault) 60.1 Glucose Level 140 mg/dL (70-99) Calcium Level 7.9 mg/dL (8.5-10.1) Objective: Assessment: 1. Abdominal pain, nausea, vomiting, alternating constipation and diarrhea with lactic acidosis. 2. Clostridium difficile positive with liquid stools. 3. Leukocytosis. 4. Fecal occult blood positive. 5. Abnormal CT abdomen with long segment of wall thickening involving the descending colon. 6. Anxiety. 7. Atrial fibrillation. 8. MULTIPLE ALLERGIES INCLUDING VANCOMYCIN TO ANAPHYLAXIS. Plan: Plan of Care Continue Flagyl as no other options Patient is not a candidate for Dificid due to allergies to Macrobid's per discussion with pharmacy Patient refuses trial with p.o. vancomycin Avoid antimotility agents Avoid stool softeners Continue supportive care LUIS ALBERTO JEAN MD Jun 09, 2021 10:52
[2021-06-09 11:00] VITALS: BP 132/59
--- NOTE | 2021-06-09 14:39 | PDOC ---
[facility] PROGRESS NOTE Date of Service DOS: DATE: 06/09/21 TIME: 14:35 Chief Complaint Chief Complaint Assessment/Plan C. difficile colitis Mixed IBS Leukocytosis Colitis Dehydration Plan: Continue IV Flagyl and transition to p.o. at time of discharge Patient admits that she did a bowel movement today, but this reportedly the first several days. Antibiotics have been discontinued IV fluids TSH pending Positive fecal occult blood test, likely diverticulosis or hemorrhoids. Resume home medications FEN - Cardiac diet PPX - Heparin FULL CODE/surrogate decision-maker is her (Silvio Richmond) Dispo - inpatient for above History of Present Illness History of Present Illness 80-year-old female with past medical history A. fib on aspirin, hypothyroidism, breast cancer, who presents to the ED with complaints of constipation and abdominal pain. She was here on 05/29 with similar complaints of abdominal pain and constipation. Since that time she reports increasing abdominal pain. She admits to taking Colace and MiraLAX without improvement, and even reports "passing out" from abdominal pain. She notes a history of diarrhea and constipation for over 2 years, but states over the past month she has been dealing with predominantly constipation. Labs admission showed WBC 19.1, sodium 131, BUN 19, creatinine 0.1, BUN/creatinine ratio 21, CBG 176, lactic acid 2.6. Stool occult blood was positive. CT abdomen/pelvis on admission was concerning for descending colitis. She will be admitted for further medical management. 06/09/2021 No acute events overnight. Patient seen examined bedside. Patient still having diarrheal episodes but clinically feels better. States she needs 1 more day because she does not have anyone to care for at home today. Anticipate discharge tomorrow. Continue with p.o. Flagyl at time of discharge. Potassium of 3.1. IV KCl replacement today. Patient's chart, labs, images were reviewed and discussed with RN Vitals/I&O Vitals/I&O: Vital Signs Date Time Temp Pulse Resp B/P (MAP) Pulse Ox O2 Delivery O2 Flow Rate FiO2 06/09/21 11:00 98.1 70 18 132/59 (83) 96 Room Air 98.1 I & O 06/08/21 06/08/21 06/09/21 15:00 23:00 07:00 Intake Total 480 ml 240 ml Output Total 28 ml Balance 480 ml 240 ml -28 ml Physical Exam Physical Exam: GENERAL: Anxious, alert, oriented x 3 female, lying in bed comfortably, appears tired, in no acute distress. HEENT: Normocephalic, atraumatic. Anicteric. No thrush. Oral mucosa dry. NECK: Supple, no JVD. LUNGS: Clear bilaterally. HEART: S1, S2. No gallops or murmurs. ABDOMEN: Soft, mildly distended, nontender, no rebound or guarding. EXTREMITIES: No edema, no cyanosis. DERMATOLOGIC: Warm, dry, no generalized rash. NEUROLOGIC: Alert, oriented x 3, grossly nonfocal. PSYCHIATRIC: Somewhat anxious, but otherwise calm, cooperative, pleasant. General: Alert, Oriented X3, Cooperative Heart: Regular rate Lungs: Clear Abdomen: Normal bowel sounds Extremities: No clubbing Skin: No rashes Labs Labs: Laboratory Tests Test 06/08/21 16:13 06/08/21 23:10 06/09/21 05:50 Thyroid Stimulating Hormone (TSH) 1.785 uIU/mL (0.358-3.74) Urine Collection Type Unknown Urine Color (Auto) Light yellow Urine Turbidity Clear Urine pH (Auto) 7.0 (<5.0-8.0) Urine Specific [place] 1.006 (1.000-1.030) Urine Protein (Auto) Negative mg/dL (Negative) Urine Glucose (Auto)(UA) Negative mg/dL (Negative) Urine Ketones (Auto) Negative mg/dL (Negative) Urine Blood (Auto) Negative (Negative) Urine Nitrite (Auto) Negative (Negative) Urine Bilirubin (Auto) Negative (Negative) Urine Urobilinogen (Auto) Normal mg/dL (Normal) Urine Leukocyte Esterase (Auto) Negative (Negative) Urine RBC 1-2 /HPF (0-2) Urine WBC 1-4 /HPF (0-4) Urine Squamous Epithelial Cells Mod /LPF Urine Bacteria 0 /HPF (0-FEW) White Blood Count 8.9 x10^3/uL (4.0-11.0) Red Blood Count 3.46 x10^6/uL (3.50-5.40) Hemoglobin 11.0 g/dL (12.0-15.5) Hematocrit 32.9 % (36.0-47.0) Mean Corpuscular Volume 95 fL (79-100) Mean Corpuscular Hemoglobin 32 pg (25-35) Mean Corpuscular Hemoglobin Concent 34 g/dL (31-37) Red Cell Distribution Width 14.1 % (11.5-14.5) Platelet Count 200 x10^3/uL (140-400) Neutrophils (%) (Auto) 68 % (31-73) Lymphocytes (%) (Auto) 20 % (24-48) Monocytes (%) (Auto) 10 % (0-9) Eosinophils (%) (Auto) 2 % (0-3) Basophils (%) (Auto) 0 % (0-3) Neutrophils # (Auto) 6.0 x10^3/uL (1.8-7.7) Lymphocytes # (Auto) 1.8 x10^3/uL (1.0-4.8) Monocytes # (Auto) 0.9 x10^3/uL (0.0-1.1) Eosinophils # (Auto) 0.1 x10^3/uL (0.0-0.7) Basophils # (Auto) 0.0 x10^3/uL (0.0-0.2) Sodium Level 137 mmol/L (136-145) Potassium Level 3.1 mmol/L (3.5-5.1) Chloride Level 103 mmol/L (98-107) Carbon Dioxide Level 25 mmol/L (21-32) Anion Gap 9 (6-14) Blood Urea Nitrogen 4 mg/dL (7-20) Creatinine 0.9 mg/dL (0.6-1.0) Estimated GFR (Cockcroft-Gault) 60.1 Glucose Level 140 mg/dL (70-99) Calcium Level 7.9 mg/dL (8.5-10.1) Comment Review of Relevant I have reviewed the following items anselmo (where applicable) has been applied. Medications: Current Medications Medications (Trade) Dose Ordered Sig/Brock Route PRN Reason Start Time Stop Time Status Last Admin Dose Admin Levothyroxine Sodium (Synthroid) 75 mcg DAILYAC PO 06/09/21 07:30 06/09/21 08:23 Metoprolol Tartrate (Lopressor) 25 mg BID PO 06/08/21 21:00 06/09/21 08:23 Vitamin D (Vitamin D3) 2,000 unit DAILY PO 06/09/21 09:00 06/09/21 08:22 Pantoprazole Sodium (Protonix) 40 mg DAILYAC PO 06/09/21 07:30 06/09/21 08:22 Acetaminophen (Tylenol) 650 mg PRN Q6HRS PRN PO Headaches, Temp > 101.5F 06/08/21 15:15 06/09/21 09:43 Heparin Sodium (Porcine) (Heparin Sodium) 5,000 unit Q12HR SQ 06/08/21 21:00 06/09/21 08:25 Metronidazole 100 ml @ 100 mls/hr Q8HRS IV 06/08/21 22:00 06/09/21 14:10 Justifications for Admission Other Justification ISABELA AMBROCIO MD Jun 09, 2021 14:39
[2021-06-09 14:48] VITALS: BP 109/52
[2021-06-09 19:00] VITALS: BP 138/72
[2021-06-09 23:00] VITALS: BP 133/60
[2021-06-09] MEDS: LORazepam 0.5 MG TABLET PO PRN (23:10)
[2021-06-10 03:30] VITALS: BP 135/63
[2021-06-10] MEDS: IV NORMAL SALINE 1000ML BAG 1,000 ML IV SCH (06:26)
[2021-06-10 07:00] VITALS: BP 122/64
[2021-06-10] MEDS: CHOLECALCIFEROL (VITAMIN D3) 1,000 UNIT TABLET PO SCH (08:42)
[2021-06-10] MEDS: METOPROLOL TART IMMED RELEASE 25 MG TABLET. PO SCH (08:42)
[2021-06-10] MEDS: PANTOPRAZOLE 40 MG TABLET.DR. PO SCH (08:42)
[2021-06-10] MEDS: LEVOTHYROXINE 75 MCG TABLET PO SCH (08:42)
[2021-06-10] MEDS: HEPARIN for SUB-Q USE 5,000 UNIT/ML VIAL. SQ SCH (08:51)
--- NOTE | 2021-06-10 10:09 | PDOC ---
Date of Service: DATE: 06/10/21 TIME: 10:07 Subjective: Subjective: Doing better overall. Objective: Objective: D/w nurse - last stooled yesterday, possible DC today, tolerating diet. Vital Signs: Vital Signs Date Time Temp Pulse Resp B/P (MAP) Pulse Ox O2 Delivery O2 Flow Rate FiO2 06/10/21 08:42 77 122/64 06/10/21 07:00 98.2 18 96 Room Air 98.2 06/09/21 20:00 2.0 Labs: BLOOD CULTURE Preliminary NO GROWTH AFTER 2 DAYS PE: GEN: NAD LUNGS: CTAB HEART: RRR ABD: S/ND/NT NEURO/PSYCH: A & O 3 A/P: C Diff - on Flagyl per ID (h/o anaphylactic reaction to vanco) GERD - on PPI -- Dc per primary, atbx per ID. Justicifation of Admission Dx: Justifications for Admission: Justification of Admission Dx: Yes CHF: Cardiac Arrhythmias DAVID ARMIJO Jun 10, 2021 10:08
[2021-06-10] MEDS ORDERED: PANT40TA77 PO (10:59)
[2021-06-10] MEDS ORDERED: METR-34 PO (10:59)
[2021-06-10 11:00] VITALS: BP 124/67
--- NOTE | 2021-06-10 11:00 | DISCH ---
DISCHARGE INSTRUCTIONS Condition on Discharge Condition on Discharge: Stable Activity After Discharge Activity Instructions for Disc: Activity as tolerated Lifting Instructions after Dis: No heavy lifting, No pulling or pushing, Do not lift >10 pounds Exercise Instruction after Dis: Walk 15 min, 3 x per day, Walk 30 min, 5 x per week Driving Instructions after Dis: Do not drive today Weight Bearing Status after Di: As tolerated Diet after Discharge Diet after Discharge: Cardiac Diet Texture: Regular Liquid Texture: Thin Liquid Swallowing Supervision: None needed Wound Incision Care Wound/Incision Care: Ice to area for comfort Checks after Discharge Checks after discharge: Check blood press - daily Contacting the DRAlcira after DC Call your doctor for: If your condition worsens Follow-Up Follow up with: PCP within 2 weeks of discharge Follow Up With: Gastroenterology as needed or scheduled Treatment/Equipment after DC Adaptive Equipment Issued: Commode, Front wheeled walker, Walker bag Discharge Respiratory Equipmen: Oxygen ISABELA AMBROCIO MD Jun 10, 2021 11:00
--- NOTE | 2021-06-10 11:40 | PDOC ---
Infectious Disease Note Subjective Subjective Patient feels better Diarrhea is improving Appetite is improving Vital Sign Vital Signs Vital Signs Date Time Temp Pulse Resp B/P (MAP) Pulse Ox O2 Delivery O2 Flow Rate FiO2 06/10/21 11:00 98.1 75 18 124/67 (86) 97 Room Air 98.1 06/09/21 20:00 2.0 Physical Exam PHYSICAL EXAM GENERAL: Anxious, alert, oriented x 3 female, lying in bed comfortably, appears tired, in no acute distress. HEENT: Normocephalic, atraumatic. Anicteric. No thrush. Oral mucosa dry. NECK: Supple, no JVD. LUNGS: Clear bilaterally. HEART: S1, S2. No gallops or murmurs. ABDOMEN: Soft, mildly distended, nontender, no rebound or guarding. EXTREMITIES: No edema, no cyanosis. DERMATOLOGIC: Warm, dry, no generalized rash. NEUROLOGIC: Alert, oriented x 3, grossly nonfocal. PSYCHIATRIC: Somewhat anxious, but otherwise calm, cooperative, pleasant. Labs Micro Microbiology 06/07/21 Blood Culture - Preliminary, Resulted NO GROWTH AFTER 2 DAYS Objective Assessment 1. Abdominal pain, nausea, vomiting, alternating constipation and diarrhea with lactic acidosis. 2. Clostridium difficile positive with liquid stools. 3. Leukocytosis. 4. Fecal occult blood positive. 5. Abnormal CT abdomen with long segment of wall thickening involving the descending colon. 6. Anxiety. 7. Atrial fibrillation. 8. MULTIPLE ALLERGIES INCLUDING VANCOMYCIN TO ANAPHYLAXIS. Plan Plan of Care Continue Flagyl as no other options Patient is not a candidate for Dificid due to allergies to Macrobid's per di scussion with pharmacy Patient refuses trial with p.o. vancomycin Avoid antimotility agents Avoid stool softeners Continue supportive care TRU JEAN MD Jun 10, 2021 11:40
[2021-06-10] MEDS ORDERED: POTASSIUM CHLORIDE 20 MEQ TABLET.ER. PO SCH (12:30)
[2021-06-11] MEDS ORDERED: METH-561 PO (03:24)
[2021-06-11] MEDS ORDERED: IPRA0.2S5 IH (03:24)
[2021-06-11] MEDS ORDERED: FLECTOR1 EACH TD (03:24)
[2021-06-11] MEDS ORDERED: CETI10TA74 PO (03:24)
[2021-06-11] MEDS ORDERED: DULO20CA PO (03:24)
[2021-06-11] MEDS ORDERED: ASPI-630 PO (03:24)
[2021-06-11] MEDS ORDERED: POTA8CAP19 PO (09:41)
--- NOTE | 2021-06-15 08:39 | PDOC3 ---
[facility]-Discharge Summary Date of Admission: Date of Admission: Jun 08, 2021 Date of Discharge: Date of Discharge: Jun 10, 2021 Discharge Diagnosis: Discharge Diagnosis: C. difficile colitis Mixed IBS Leukocytosis Colitis Dehydration Hospital Course: Hospital Course: 80-year-old female with past medical history A. fib on aspirin, hypothyroidism, breast cancer, who presents to the ED with complaints of constipation and abdominal pain. She was here on 05/29 with similar complaints of abdominal pain and constipation. Since that time she reports increasing abdominal pain. She admits to taking Colace and MiraLAX without improvement, and even reports "passing out" from abdominal pain. She notes a history of diarrhea and constipation for over 2 years, but states over the past month she has been dealing with predominantly constipation. Labs admission showed WBC 19.1, sodium 131, BUN 19, creatinine 0.1, BUN/creatinine ratio 21, CBG 176, lactic acid 2.6. Stool occult blood was positive. CT abdomen/pelvis on admission was concerning for descending colitis. She will be admitted for further medical management. 06/09/2021 No acute events overnight. Patient seen examined bedside. Patient still having diarrheal episodes but clinically feels better. States she needs 1 more day because she does not have anyone to care for at home today. Anticipate discharge tomorrow. Continue with p.o. Flagyl at time of discharge. Potassium of 3.1. IV KCl replacement today. Patient's chart, labs, images were reviewed and discussed with RN By day of discharge pt was clinically stable and her diarrhea inmproved. She will need to complete 2 weeks fo Flagyl PO. Rest of hospital course was uneventful. Disposition: Disposition/Orders: D/C to Home Activity: Activity: Resume previous activity Diet: Diet: Cardiac Medications: Home Meds Active Scripts Potassium Chloride (POTASSIUM CHLORIDE) 8 Meq Capsule.er, 1 CAP PO DAILY for . for 30 Days, #30 CAP 0 Refills Prov:MAGALI DOYLE III DO 06/11/21 Metronidazole (METRONIDAZOLE) 500 Mg Tablet, 500 MG PO TID for c diff infection for 14 Days, #42 TAB Prov:ISABELA AMBROCIO MD 06/10/21 Pantoprazole Sodium (PANTOPRAZOLE SODIUM ) 40 Mg Tablet.dr, 40 MG PO DAILYAC for reflux for 30 Days, #30 TAB.SR 2 Refills Prov:ISABELA AMBROCIO MD 06/10/21 Reported Medications Diclofenac Epolamine (FLECTOR) 1 Each Patch.td12, 1 EACH TD DAILY for pain, EACH 06/11/21 Cetirizine Hcl (ZYRTEC) 10 Mg Tablet, 10 MG PO PRN DAILY PRN for ALLERGIES, TAB 06/11/21 Ipratropium [place] (IPRATROPIUM BROMIDE) 0.2 Mg/1 Ml Solution, 0.2 MG IH DAILY for breathing, MISC 06/11/21 Methocarbamol (METHOCARBAMOL) 500 Mg Tablet, 500 MG PO QHS for pain/sleep, TAB 06/11/21 Aspirin (ASPIRIN) 81 Mg Tab.chew, 81 MG PO DAILY for ppx, TAB.CHEW 06/11/21 Duloxetine Hcl (CYMBALTA) 20 Mg Capsule.dr, 20 MG PO DAILY for depression, CAP 06/11/21 Metoprolol Succinate (METOPROLOL SUCCINATE ( XL )) 25 Mg Tab.er.24h, 1 TAB PO DAILY for htn, #30 TAB 5 Refills 06/08/21 Fluticasone Propionate (Flonase Allergy Relief) 9.9 Ml [place].susp, 2 SPRAYS NS DAILY for allergies , ML 05/19/20 Lorazepam (ATIVAN) 0.5 Mg Tablet, 0.5 MG PO PRN DAILY PRN for ANXIETY / AGITATION, TAB 05/18/20 Lactobacillus Acidophilus (PROBIOTIC) 1 Each Capsule, 1 CAP PO DAILY for Gut support for 10 Days, #10 CAP 0 Refills 05/18/20 Cholecalciferol (Vitamin D3) (Vitamin D3) 50 Mcg Capsule, 100 MCG PO DAILY for vitamin, CAP 05/18/20 Mecobalamin (B12 Active) 1,000 Mcg Tab.chew, 5000 MCG PO DAILY for vitamin, TAB.CHEW 05/18/20 Lidocaine (Lidocaine PATCH ) 1 Each Adh..patch, 1 EACH TP DAILY for FOR LOCAL PAIN, PATCH REMOVE AFTER 12 HOURS 05/18/20 Famotidine (FAMOTIDINE) 20 Mg Tablet, 40 MG PO HS for GERD, TAB 02/10/19 Levothyroxine Sodium (SYNTHROID) 75 Mcg Tablet, 75 MCG PO DAILYAC for THYROID SUPPLEMENT, #30 TAB 0 Refills 09/04/13 Discontinued Reported Medications Methocarbamol (ROBAXIN-750) 750 Mg Tablet, 500 MG PO HS for muscle relaxer for 30 Days, #20 TAB 0 Refills 05/18/20 Discontinued Scripts Oxycodone/Apap 5-325 (PERCOCET 5-325 MG TABLET ) 1 Each Tablet, 1 TAB PO PRN Q6HRS PRN for MODERATE-SEVERE PAIN for 10 Days, #30 TAB Prov:CHARU OSORIO MD 06/04/20 Scheduled Aspirin (Aspirin), 81 MG PO DAILY, (Reported) Cholecalciferol (Vitamin D3) (Vitamin D3), 100 MCG PO DAILY, (Reported) Diclofenac Epolamine (Flector), 1 EACH TD DAILY, (Reported) Duloxetine Hcl (Cymbalta), 20 MG PO DAILY, (Reported) Famotidine (Famotidine), 40 MG PO HS, (Reported) Fluticasone Propionate (Flonase Allergy Relief), 2 SPRAYS NS DAILY, (Reported) Ipratropium [place] (Ipratropium [place]), 0.2 MG IH DAILY, (Reported) Lactobacillus Acidophilus (Probiotic), 1 CAP PO DAILY, (Reported) Levothyroxine Sodium (Synthroid), 75 MCG PO DAILYAC, (Reported) Lidocaine (Lidocaine PATCH ), 1 EACH TP DAILY, (Reported) Mecobalamin (B12 Active), 5,000 MCG PO DAILY, (Reported) Methocarbamol (Methocarbamol), 500 MG PO QHS, (Reported) Metoprolol Succinate (Metoprolol Succinate ( Xl )), 1 TAB PO DAILY, (Reported) Metronidazole (Metronidazole), 500 MG PO TID Pantoprazole Sodium (Pantoprazole Sodium ), 40 MG PO DAILYAC Potassium Chloride (Potassium Chloride), 1 CAP PO DAILY Scheduled PRN Cetirizine Hcl (Zyrtec), 10 MG PO PRN DAILY PRN for ALLERGIES, (Reported) Lorazepam (Ativan), 0.5 MG PO PRN DAILY PRN for ANXIETY / AGITATION, (Reported) Discontinued Medications Methocarbamol (Robaxin-750), 500 MG PO HS, (Reported) Oxycodone/Apap 5-325 (Percocet 5-325 Mg Tablet ), 1 TAB PO PRN Q6HRS PRN for MODERATE-SEVERE PAIN Total Time: Total Time: Total time spent was 32 minutes in preparing scripts and discharge planning with SW and RN. Patient seen and examined on day of Discharge. Justicifation of Admission Dx: Justifications for Admission: Justification of Admission Dx: Yes CHF: Cardiac Arrhythmias ISABELA AMBROCIO MD Jun 15, 2021 08:39
== END 2021-06-10 13:30 | disposition home or self-care (01) | DRG 372 ==
LOC: ER 17:03 → 2 NORTH 22:00
PROVIDERS: ADMIT Internal Medicine; ATTEND Internal Medicine
DX: A04.72 Enterocolitis due to Clostridium difficile, not specified as recurrent (principal); T88.6XXA Anaphylactic reaction due to adverse effect of correct drug or medicament properly administered, initial encounter; E87.2 Acidosis; K58.2 Mixed irritable bowel syndrome; C44.91 Basal cell carcinoma of skin, unspecified; C50.919 Malignant neoplasm of unspecified site of unspecified female breast; E03.9 Hypothyroidism, unspecified; E86.0 Dehydration; F41.9 Anxiety disorder, unspecified; I48.91 Unspecified atrial fibrillation; I50.9 Heart failure, unspecified; J30.9 Allergic rhinitis, unspecified; J40 Bronchitis, not specified as acute or chronic; K21.9 Gastro-esophageal reflux disease without esophagitis; K22.70 Barrett's esophagus without dysplasia; K59.00 Constipation, unspecified; T36.8X5A Adverse effect of other systemic antibiotics, initial encounter; Z82.49 Family history of ischemic heart disease and other diseases of the circulatory system; Z85.3 Personal history of malignant neoplasm of breast; Z85.828 Personal history of other malignant neoplasm of skin; Z87.892 Personal history of anaphylaxis; Z88.1 Allergy status to other antibiotic agents; Z90.12 Acquired absence of left breast and nipple; Z90.49 Acquired absence of other specified parts of digestive tract; Z92.21 Personal history of antineoplastic chemotherapy; Z92.3 Personal history of irradiation; M19.90 Unspecified osteoarthritis, unspecified site
CPT/HCPCS: 36415; 74177; 80048; 80053; 81001; 82274; 83605; 83690; 84145; 84443; 84484; 85007; 85025; 86140; 87040; 87493; 87505; 93005; 96361; 96374; 96375; 96376; J1644; J2405; J2543; J3010; J3490; J7030; J7060; Q9967; 99285-25; G0378

== ENCOUNTER 2021-06-10 21:57 | Inpatient (IN) | payer MEDICARE, BC ==
[~2021-06-10] VITALS: Ht 157.5 cm; Wt 77.2 kg
[~2021-06-10 21:57] MED LIST changes: +METR-34 PO; +PANT40TA77 PO; +PRED20TA PO
--- NOTE | 2021-06-10 22:15 | ED.ADGEN ---
Past Medical History Past Medical History: A-Fib, Cancer, Hypothyroid Additional Past Medical Histor: breast cancer '09,lymphedema,RVR Past Surgical History: Cancer Surgery, Tonsillectomy, Other Additional Past Surgical Histo: left mastectomy, DISCETOMY,VEIN ABLATION Smoking Status: Never Smoker Alcohol Use: None Drug Use: None General Adult EDM: Chief Complaint: ALLERGIC REACTION HPI: HPI: Patient is a 80 year old female coming in for allergic reaction. Patient was discharged about 8 hours ago after being hospitalized for C. difficile. Patient was sent home with Flagyl. She had been taking it and started noticing irritation on the sides of her tongue and itching on her lower legs. Patient states last night while she was in the hospital she had similar symptoms with itching to her head and arms but had written them off as potentially needed to take a shower. Patient denies any difficulty breathing or wheezing. Patient has a history of multiple antibiotic and other medication allergies. Patient was told that if she does not tolerate the Flagyl that she will need to be started on oral vancomycin in the hospital. Review of Systems: Review of Systems: All other systems within normal limits except for as noted in the HPI Current Medications: Allergies: Allergies: Allergies Coded Allergies Type Severity Reaction Last Updated Verified Sulfa (Sulfonamide Antibiotics) Allergy Intermediate oral sores 08/13/16 Yes anastrozole Allergy Intermediate 05/16/20 Yes clarithromycin Allergy Intermediate 05/16/20 Yes levofloxacin Allergy Intermediate 05/16/20 Yes moxifloxacin Allergy Intermediate 05/16/20 Yes strawberry Allergy Intermediate 05/16/20 Yes venom-wasp Allergy Intermediate 05/16/20 Yes cyclobenzaprine Adverse Reaction Severe felt bed moving, felt like someone was in bed 08/13/16 Yes alendronate sodium Adverse Reaction Intermediate vision changes 02/10/19 Yes cefdinir Adverse Reaction Intermediate Diarrhea 02/10/19 Yes doxepin Adverse Reaction Intermediate dizzyness 02/10/19 Yes ibuprofen Adverse Reaction Intermediate sores 02/10/19 Yes letrozole Adverse Reaction Intermediate 08/11/16 Yes morphine Adverse Reaction Intermediate vomiting 08/13/16 Yes naproxen Adverse Reaction Intermediate sores 02/10/19 Yes tizanidine Adverse Reaction Intermediate heart palpitaions 02/10/19 Yes metoclopramide Adverse Reaction Mild ITCHY 02/10/19 Yes Physical Exam: PE: Constitutional: Well developed, well nourished, no acute distress, non-toxic appearance. [] HENT: Normocephalic, atraumatic, bilateral external ears normal, nose normal. [No tongue swelling, no noted tongue lesion] Eyes: PERRLA, conjunctiva normal, no discharge. [] Neck: No rigidity, supple, no stridor. [] Cardiovascular: Regular rate and rhythm, brisk cap refill [] Lungs & Thorax: Non labored symmetric respirations, no tachypnea or respiratory distress [] Abdomen: Soft, nondistended. Skin: Warm, dry, no erythema, no rash. Erythema and swelling to bilateral lower extremities, no raised rash [] Back: Unremarkable Extremities: No deformities, range of motion grossly intact, no lower extremity edema [] Neurologic: Alert and oriented X 3, no focal deficits noted. [] Psychologic: Affect normal, judgement normal, mood normal. [] Current Patient Data: Vital Signs: Vital Signs Date Time Temp Pulse Resp B/P (MAP) Pulse Ox O2 Delivery O2 Flow Rate FiO2 06/10/21 21:58 99.1 96 20 152/83 (106) 98 Room Air 99.1 EKG: EKG: [] Heart Score: C/O Chest Pain: No Risk Factors: Risk Factors: DM, Current or recent (<one month) smoker, HTN, HLP, family history of CAD, obesity. Risk Scores: Score 0 - 3: 2.5% MACE over next 6 weeks - Discharge Home Score 4 - 6: 20.3% MACE over next 6 weeks - Admit for Clinical Observation Score 7 - 10: 72.7% MACE over next 6 weeks - Early Invasive Strategies Radiology/Procedures: Radiology/Procedures: [] Course & Med Decision Making: Course & Med Decision Making Pertinent Labs and Imaging studies reviewed. (See chart for details) [] Dragon Disclaimer: Dragon Disclaimer: This electronic medical record was generated, in whole or in part, using a voice recognition dictation system. Departure Departure Impression: Primary Impression: Allergic reaction Disposition: ADMITTED INPATIENT Admitting Physician: CARMELA Condition: STABLE Referrals: LAURA SOLIS (PCP) STEPHON GORDON MD Jun 10, 2021 22:15
[2021-06-10] MEDS ORDERED: hydrOXYzine IM 50 MG/ML VIAL IM ONE (22:30)
[2021-06-10] MEDS ORDERED: methylPREDNISolone SOD SUCC PF 125 MG/2 ML VIAL. IV ONE (22:30)
[2021-06-10] MEDS ORDERED: ACETAMINOPHEN 325 MG TABLET. PO PRN (22:30)
[2021-06-10] MEDS ORDERED: ONDANSETRON PF 4 MG/2 ML VIAL. IVP PRN (22:30)
[2021-06-10] MEDS ORDERED: FAMOTIDINE 20 MG/2 ML VIAL IVP ONE (22:30)
[2021-06-10 22:59] LABS: BASO % 0 % (0-3); EOS # 0.2 x10^3/uL (0.0-0.7); EOS % 2 % (0-3); HEMATOCRIT 33.8 % (36.0-47.0); HEMOGLOBIN 11.5 g/dL (12.0-15.5); LYMPH # 1.6 x10^3/uL (1.0-4.8); LYMPH % 21 % (24-48); MEAN CORPUSCULAR HEMOGLOBIN 32 pg (25-35); MEAN CORPUSCULAR HGB CONC 34 g/dL (31-37); MEAN CORPUSCULAR VOLUME 93 fL (79-100); MONO # 0.7 x10^3/uL (0.0-1.1); MONO % 10 % (0-9); NEUT % 66 % (31-73); PLATELET COUNT 213 x10^3/uL (140-400); RED BLOOD COUNT 3.62 x10^6/uL (3.50-5.40); RED CELL DISTRIBUTION WIDTH 13.5 % (11.5-14.5); WHITE BLOOD COUNT 7.5 x10^3/uL (4.0-11.0)
[2021-06-10 23:10] LABS: CALCIUM 8.8 mg/dL (8.5-10.1); CREATININE 0.8 mg/dL (0.6-1.0); GFR 68.8; POTASSIUM 3.2 mmol/L (3.5-5.1)
[2021-06-10 23:17] LABS: ALBUMIN 3.5 g/dL (3.4-5.0); ALBUMIN/GLOBULIN RATIO 1.1 (1.0-1.7); TOTAL BILIRUBIN 0.7 mg/dL (0.2-1.0); TOTAL PROTEIN 6.6 g/dL (6.4-8.2)
[2021-06-11 03:17] VITALS: BP 147/60
[2021-06-11] MEDS ORDERED: METH-561 PO (03:24)
[2021-06-11] MEDS ORDERED: ASPI-630 PO (03:24)
[2021-06-11] MEDS ORDERED: IPRA0.2S5 IH (03:24)
[2021-06-11] MEDS ORDERED: CETI10TA74 PO (03:24)
[2021-06-11] MEDS ORDERED: DULO20CA PO (03:24)
[2021-06-11] MEDS ORDERED: FLECTOR1 EACH TD (03:24)
[2021-06-11 07:00] VITALS: BP 152/72
[2021-06-11] MEDS ORDERED: POTASSIUM CHLORIDE 20 MEQ TABLET.ER. PO ONE ×2 (09:00→12:00)
[2021-06-11] MEDS ORDERED: POTA8CAP19 PO (09:41)
--- NOTE | 2021-06-11 09:41 | SNU/HH DC ---
DISCHARGE WITH HOME HEALTH DISCHARGE INFORMATION: Final Diagnosis: Problems Medical Problems: (1) Allergic reaction Status: Acute Condition on Discharge: Stable CODE STATUS: Code Status: Full HOME HEALTH: Face to Face: I certify this patient is under my care and that I, or a nurse practitioner or physician's certified anesthesiologist assistant working with me, had a face to face encounter that meets the physician face to face encounter requirements with this patient on []. Medical Complications: Other (Resolving C. difficile) Long Term For: Assess & Educate Safety RN For Eval/Treatment: Yes Physical Therapy For: Evalulation/Treatment Occupational Therapy For: Evaluation/Treatment Home Health Aide For: Self-care SHELVER For: Community Resources Pt Meets Homebound Status: Poor coordination w/ amb. POST DISCHARGE ORDERS: Activity Instructions for Disc: Activity as tolerated Weight Bearing Status after Di: As tolerated DIET AFTER DISCHARGE: Cardiac Wound/Incision Care: Ice to area for comfort CHECKS AFTER DISCHARGE: Checks after discharge: Check blood press - daily FOLLOW-UP: DC TO SNF LABS: CBC, CMP TREATMENT/EQUIPMENT ORDERS: Adaptive Equipment Issued: Commode, Front wheeled walker, Walker bag Discharge Respiratory Equipmen: Oxygen CERTIFICATION STATEMENT: Certification Statement: Certification Statement: Based on the above finding, I certify that this patient is confined to the home and needs intermittent prison care, physical therapy and/or speech therapy, or continues to need occupational therapy.~ This patient is under my care, and I have initiated the establishment of the plan of care.~ This patient will be followed by myself or a community physician who will periodically review the plan of care. Home Meds Active Scripts Potassium Chloride (POTASSIUM CHLORIDE) 8 Meq Capsule.er, 1 CAP PO DAILY for . for 30 Days, #30 CAP 0 Refills Prov:MAGALI DOYLE K III DO 06/11/21 Metronidazole (METRONIDAZOLE) 500 Mg Tablet, 500 MG PO TID for c diff infection for 14 Days, #42 TAB Prov:ISABELA AMBROCIO MD 06/10/21 Pantoprazole Sodium (PANTOPRAZOLE SODIUM ) 40 Mg Tablet.dr, 40 MG PO DAILYAC for reflux for 30 Days, #30 TAB.SR 2 Refills Prov:ISABELA AMBROCIO MD 06/10/21 Reported Medications Diclofenac Epolamine (FLECTOR) 1 Each Patch.td12, 1 EACH TD DAILY for pain, EACH 06/11/21 Cetirizine Hcl (ZYRTEC) 10 Mg Tablet, 10 MG PO PRN DAILY PRN for ALLERGIES, TAB 06/11/21 Ipratropium [place] (IPRATROPIUM BROMIDE) 0.2 Mg/1 Ml Solution, 0.2 MG IH DAILY for breathing, MISC 06/11/21 Methocarbamol (METHOCARBAMOL) 500 Mg Tablet, 500 MG PO QHS for pain/sleep, TAB 06/11/21 Aspirin (ASPIRIN) 81 Mg Tab.chew, 81 MG PO DAILY for ppx, TAB.CHEW 06/11/21 Duloxetine Hcl (CYMBALTA) 20 Mg Capsule.dr, 20 MG PO DAILY for depression, CAP 06/11/21 Metoprolol Succinate (METOPROLOL SUCCINATE ( XL )) 25 Mg Tab.er.24h, 1 TAB PO DAILY for htn, #30 TAB 5 Refills 06/08/21 Fluticasone Propionate (Flonase Allergy Relief) 9.9 Ml [place].susp, 2 SPRAYS NS DAILY for allergies , ML 05/19/20 Lorazepam (ATIVAN) 0.5 Mg Tablet, 0.5 MG PO PRN DAILY PRN for ANXIETY / AGITATION, TAB 05/18/20 Lactobacillus Acidophilus (PROBIOTIC) 1 Each Capsule, 1 CAP PO DAILY for Gut support for 10 Days, #10 CAP 0 Refills 05/18/20 Cholecalciferol (Vitamin D3) (Vitamin D3) 50 Mcg Capsule, 100 MCG PO DAILY for vitamin, CAP 05/18/20 Mecobalamin (B12 Active) 1,000 Mcg Tab.chew, 5000 MCG PO DAILY for vitamin, TAB.CHEW 05/18/20 Lidocaine (Lidocaine PATCH ) 1 Each Adh..patch, 1 EACH TP DAILY for FOR LOCAL PAIN, PATCH REMOVE AFTER 12 HOURS 05/18/20 Famotidine (FAMOTIDINE) 20 Mg Tablet, 40 MG PO HS for GERD, TAB 02/10/19 Levothyroxine Sodium (SYNTHROID) 75 Mcg Tablet, 75 MCG PO DAILYAC for THYROID SUPPLEMENT, #30 TAB 0 Refills 09/04/13 Discontinued Reported Medications Methocarbamol (ROBAXIN-750) 750 Mg Tablet, 500 MG PO HS for muscle relaxer for 3 0 Days, #20 TAB 0 Refills 05/18/20 Discontinued Scripts Oxycodone/Apap 5-325 (PERCOCET 5-325 MG TABLET ) 1 Each Tablet, 1 TAB PO PRN Q6HRS PRN for MODERATE-SEVERE PAIN for 10 Days, #30 TAB Prov:CHARU OSORIO MD 06/04/20 MAGALI DOYLE III DO Jun 11, 2021 09:41
--- NOTE | 2021-06-11 10:04 | NUR ---
SS following for discharge planning. SS reviewed pt chart and discussed with pt RN. Pt is from home and is currently on room air. Discharge order on the chart for home with self care.
[2021-06-11 11:00] VITALS: BP 155/87
--- NOTE | 2021-06-11 11:18 | SSS ---
DATE OF SERVICE: 06/11/2021 ADMIT DATE: 06/10/2021 CHIEF COMPLAINT: Possible allergic reaction. HISTORY OF PRESENT ILLNESS: The patient is a pleasant elderly female who we just discharged yesterday. She presented back to the ER last night about 10:00 complaining that she had some spots on her tongue and some red legs. They admitted her overnight for observation. This morning, I saw and examined her. She is doing great and does not appear to have any signs of allergic reaction. I am going to redischarge. PAST MEDICAL HISTORY: Resolving C. diff., she was just hospitalized for that. Allergic rhinitis, depression, anxiety, GERD, asthma, hypothyroidism, chronic pain, arthritis, hypertension. ALLERGIES: SULFA, ALENDRONATE, ANASTROZOLE, AZITHROMYCIN, CEFDINIR, CLARITHROMYCIN, CYCLOBENZAPRINE, DIPHENHYDRAMINE, DOXEPIN, ERYTHROMYCIN, IBUPROFEN, LETROZOLE, LEVAQUIN, METOCLOPRAMIDE, MORPHINE, MOXIFLOXACIN, and more. Please see the chart. FAMILY HISTORY: Diabetes. SOCIAL HISTORY: She does not drink, smoke or take drugs. MEDICATIONS: Reviewed, please refer to the MRAD. REVIEW OF SYSTEMS: GENERAL: No history of weight change, weakness or fevers. SKIN: No bruising, hair changes or rashes. EYES: No blurred, double or loss of vision. NOSE AND THROAT: No history of nosebleeds, hoarseness or sore throat. HEART: No history of palpitations, chest pain or shortness of breath on exertion. LUNGS: Denies cough, hemoptysis, wheezing or shortness of breath. GASTROINTESTINAL: Denies changes in appetite, nausea, vomiting, diarrhea or constipation. GENITOURINARY: No history of frequency, urgency, hesitancy or nocturia. NEUROLOGIC: Denies history of numbness, tingling, tremor or weakness. PSYCHIATRIC: No history of panic, anxiety or depression. ENDOCRINE: No history of heat or cold intolerance, polyuria or polydipsia. EXTREMITIES: Denies muscle weakness, joint pain, pain on walking or stiffness. PHYSICAL EXAMINATION: VITALS: Within normal limits and are stable. GENERAL: No apparent distress. Alert and oriented. HEENT: Normal cephalic atraumatic, external auditory canals are patent EYES: Extraocular muscles are intact, pupils are equally round and reactive to light and accommodation MUSCULOSKELETAL: Well developed, well nourished, good range of motion ENDOCRINE: No thyromegaly was palpated LYMPHATICS: No cervical chain or axillary nodes were noted HEMATOPOIETIC: No bruising NECK: Supple, no JVD, no thyromegaly was noted. LUNGS: Clear to auscultation in all lung imles without rhonchi or wheezing. HEART: RRR, S1, S2 present. Peripheral pulses intact, no obvious murmurs were noted. ABDOMEN: Soft, nontender. Positive bowel sounds no organomegaly, normal bowel sounds. EXTREMITIES: Without any cyanosis, clubbing, or edema. Pedal pulses intact, Homans sign is negative. NEUROLOGIC: Normal speech, normal tone. A and O x 3, moves all extremities, no obvious focal deficits. PSYCHIATRIC: Normal affect, normal mood. Stable. SKIN: No ulcerations or rashes, good skin turgor, no jaundice. VASCULAR: Good capillary refill, neurovascular bundle appears to be intact. ASSESSMENT AND PLAN: Resolving mild allergic reaction. Clinically, she looks great. I do not see any signs of allergic reaction this morning. We will go ahead and discharge. DISPOSITION: Home. ACTIVITY: As tolerated. DIET: Low sodium. MEDICATIONS: Please see the MRAD. Potassium chloride 8 mEq a day, aspirin 81 a day, cetirizine 10 a day, vitamin D, Flector 1 patch, change daily, Cymbalta 20 a day, Pepcid 40 at bedtime, Flonase, Atrovent, probiotics, Synthroid 75 a day, lidocaine patches, lorazepam 0.5 p.r.n., B12, methocarbamol 500 at bedtime, metoprolol XL 25 a day, metronidazole 500 t.i.d. and Protonix 40 a day. TOTAL TIME: 34 minutes. IVONNE/COY DR: IVONNE/sunday TID: [id number]
--- NOTE | 2021-06-11 11:51 | NUR ---
Patient discharged, education given on allergy reactions and when to go to the doctor. Patient and spouse not receptive to teaching. IV and telemonitor discontinued by this RN. Patient discharged to main entrance with belongings and spouse to personal vehicle by wheelchair by Abigail, alumnae secretary.
== END 2021-06-11 11:51 | disposition home or self-care (01) | DRG 916 ==
LOC: ER 21:57 → 5 NORTH 22:00
PROVIDERS: ADMIT Internal Medicine; ATTEND Internal Medicine
DX: T78.40XA Allergy, unspecified, initial encounter (principal); E03.9 Hypothyroidism, unspecified; I10 Essential (primary) hypertension; I48.91 Unspecified atrial fibrillation; Z83.3 Family history of diabetes mellitus; Z85.3 Personal history of malignant neoplasm of breast; Z90.12 Acquired absence of left breast and nipple; F32.A Depression, unspecified; F41.9 Anxiety disorder, unspecified; G89.29 Other chronic pain; J30.9 Allergic rhinitis, unspecified; K21.9 Gastro-esophageal reflux disease without esophagitis; M19.90 Unspecified osteoarthritis, unspecified site; Z88.8 Allergy status to other drugs, medicaments and biological substances; X58.XXXA Exposure to other specified factors, initial encounter
CPT/HCPCS: 36415; 80053; 85025; 96372; 96374; 96375; J2405; J2930; J3410; J3490; 99285-25; G0378